=== PATIENT | female | born 1965 | race Caucasian/White ===

== ENCOUNTER 2016-04-27 10:52 | Emergency (ER) | payer OTHER, MEDICARE ==
[~2016-04-27] VITALS: Ht 170.2 cm; Wt 135.2 kg
[~2016-04-27 10:52] MED LIST: ALBUTEROL0.09 MG/A1 INH; AMBIEN 10MG10 MG PO; AMBIEN10 M1 PO; ASPIRIN EC81 M1 PO; ATIVAN1 M1 PO; BUPROPION HCL75 M1; BUPROPION HCL75 M1 PO; CLARITIN10 MG PO; CLONAZEPAM0.5 MG PO; CLONAZEPAM1 M2 PO; CLONAZEPAM1 MG PO; DESONIDE0.052 TOP; ECOTRIN81 MG PO; EPIPEN ADULT A0.3 MG IM; FAMOTIDINE20 M1 PO; FLONASE120 SPRAY/ NASB; FLUTICASON0.05 MG/A2 INH/SOL; FLUTICASONE PRO16 GM NAS; GABAPENTIN100 M2 PO; GEODON20 M1 PO; GEODON80 MG PO; GUAFENESIN400 MG PO; LAMICTAL 25MG25 MG PO; LAMOTRIGINE100 M2 PO; LAMOTRIGINE25 M3 PO; LEVOCETIRIZINE D5 MG PO; LEVOTHYROXINE0.1 M1 PO; LEVOXYL88 MCG PO; LEVSIN-SL0.125 MG SL; LITHIUM CARBON300 M4 PO; LITHIUM CARBON300 M5 PO; LITHIUM CARBON300 M6 PO; MIRALAX119 GM PO; MONTELUKAST SOD10 M1 PO; MUCINEX600 M1 PO; MUCUS ER600 MG PO; MULTIVITAMIN1 TAB PO; NASONEX0.05 MG/Ac NAS; OLANZAPINE15 M1 PO; OLANZAPINE20 M1 PO; ONE DAILY MULT1 EAC2 PO; PEPCID20 M1 PO; PHENTERMINE H37.5 MG PO; PRAVASTATIN SOD40 M2 PO; PRAVASTATIN SOD40 MG PO; PREDNICOT20 MG PO; PROBIOTIC1 EACH PO; RISPERIDONE1 MG PO; RISPERIDONE2 MG PO; RISPERIDONE3 M1 PO; ROBITUSSIN W/CO10 ML PO; SINGULAIR10 MG PO; SUDAFED PE10 MG PO; SULFAMETHOXAZO1 EAC1 PO; TESSALON PERLE100 MG PO; TOPIRAMATE25 MG PO; VENTOLIN H0.09 MG/Ac INH; VITAMIN B-121000 MC3 PO; WELLBUTRIN SR100 M2 PO; ZIPRASIDONE HCL20 M1 PO; ZIPRASIDONE HYD40 MG PO; ZIPRASIDONE HYD80 MG PO; ZITHROMAX Z-PA250 M1 PO; ZOFRAN ODT4 M1 SL; ZYPREXA2.5 M1 PO
[2016-04-27] MEDS ORDERED: BUPROPION HCL75 M1 PO (12:00)
[2016-04-27] MEDS ORDERED: B-12500 MC1 PO (12:01)
[2016-04-27] MEDS ORDERED: OLANZAPINE20 M1 PO (12:03)
[2016-04-27] MEDS ORDERED: GABAPENTIN300 M2 PO (12:03)
--- NOTE | 2016-04-27 12:21 | ED MVC/FALL/TRAUMA COMPLAINT ---
History of Present Illness General Chief Complaint: Fall Stated Complaint: FALL Source: patient Exam Limitations: no limitations Allergies Coded Allergies: lamotrigine (From Lamictal) (Severe, RASH 12/24/15) shrimp (Severe, ANAPHYLAXIS 12/24/15) Fish Containing Products (12/25/15) divalproex sodium (From DEPAKOTE) (vomiting 12/25/15) ketorolac (From TORADOL) (UNKNOWN 12/24/15) telithromycin (VOMITING AND DIARRHEA 12/24/15) tetracycline (RASH ON HEAD, SCALP GETS REALLY DRY 12/24/15) topiramate (From TOPAMAX) (12/25/15) haloperidol (CATATONIC/DISTONIC 12/30/15 12/30/15) levofloxacin (SEVERE DIARRHEA 12/24/15) oxycodone (VOMITING 12/24/15) Triage Note: STATES THAT SHE FELL WALKING UP STAIRS ON MONDAY AND HAS BILATERAL KNEE PAIN, TOOK ASPRIN WITH LITTLE RELIEF THIS AM Triage Nurses Notes Reviewed? yes HPI: this patient is a 50-year-old female who presented to the emergency department today for multiple complaints. She reported that on Monday she was going to [place], "psychiatric appointment," when she was walking up the stairs and fell forward landing on her knees and lower abdomen. The patient reported that the pain that she feels gets up to a 7 out of 10 and is nonradiating. The pain is sharp and worse with certain movements. No palliative factors. The patient reported that she did have a lap band surgery and was told by her doctor at [facility] that if she has any abdominal pain to go to the hospital. The patient reported some tingling in her right foot. No numbness. The patient is denying any calf pain or swelling. She denied any nausea, vomiting, chest pain, difficulty breathing, or any other associated symptoms. She did try taking aspirin this morning with no relief of her symptoms. (EULOGIO GUTIERRES,ERIKA) Vital Signs & Intake/Output Vital Signs & Intake/Output ED Intake and Output 04/28 0000 04/27 1200 Intake Total Output Total 50 Balance -50 Output, Urine 50 Patient 298 lb Weight Reconcile Medications Aspirin (Ecotrin*) 81 MG TABLET. 81 MG PO DAILY [facility] Bupropion HCl 75 MG TABLET 1 TAB PO DAILY DEPRESSION (Reported) Cyanocobalamin (Vitamin B-12) (B-12) 500 MCG TABLET 1 TAB PO DAILY SUPPLEMENT (Reported) Famotidine 20 MG TABLET 20 MG PO BID ACID REFLUX Fluticasone Propionate 50 MCG/ACTUATION SPRAY.SUSP 2 SPRAY FLORENCIO DAILY ALLERGIES Gabapentin 300 MG CAPSULE 1 CAP PO QPM ANXIETY (Reported) Levothyroxine Sodium (Levoxyl) 88 MCG TABLET 1 TAB PO DAILY AC THYROID ( Reported) [place] Carbonate 300 MG CAPSULE 600 MG PO 0800 MOOD STABILITY [place] Carbonate 300 MG CAPSULE 900 MG PO 2000 MOOD STABILITY Montelukast Sodium 10 MG TABLET 10 MG PO DAILY ASTHMA Multivitamin (One Daily Multivitamin) 1 EACH TABLET 1 TAB PO DAILY VITAMIN SUPPORT Naproxen (Naprosyn) 500 MG TABLET 1 TAB PO BID PRN pain and inflammation Olanzapine 20 MG TABLET 1 TAB PO QPM CLARIFY THOUGHTS (Reported) Pravastatin Sodium 40 MG TABLET 1 TAB PO DAILY DIRECTED (Reported) (HUMPHREY CABRERA DO) Past History Travel History Traveled to [place] past 21 day No Medical History Any Pertinent Medical History? see below for history Neurological: NONE EENT: allergies, rhinitis, sinusitis, LARYNGEAL CYSTS Cardiovascular: hyperlipidemia Respiratory: asthma, bronchitis, obstructive sleep apnea, allergies Gastrointestinal: GERD Hepatic: NONE Renal: NONE Musculoskeletal: NONE Psychiatric: anxiety, depression, insomnia, schizo affective disorder (depressed , with suicidality) Endocrine: hypothyroidism, obesity, diet controlled diabetes Blood Disorders: NONE Cancer(s): NONE STEEPING PRESS TENDER/Reproductive: NONE Other Medical Hx: low pneumonia titers History of MRSA: No History of VRE: No History of CDIFF: No Pneumonia Vaccine: 06/26/15 Influenza Vaccine: 12/25/15 Surgical History Surgical History: LAPBAND done in 2005 Lapband reversal done in 04/28 failure lap band take down reversal of lapband 2014 Psychosocial History Who do you live with Patient/Self Services at Home None What is your primary language Indonesian Tobacco Use: Never used ETOH Use: denies use Illicit Drug Use: denies illicit drug use Family History Family History, If Any: Parents (Hypertension). FATHER (Diabetes). Hx Contributory? No (EULOGIO GUTIERRES,ERIKA) Review of Systems Review of Systems Constitutional: Reports: no symptoms. Eyes: Reports: no symptoms. Ears, Nose, Throat, Mouth: Reports: no symptoms. Respiratory: Reports: no symptoms. Cardiovascular: Reports: no symptoms. Gastrointestinal/Abdominal: Reports: see HPI. Genitourinary: Reports: no symptoms. Musculoskeletal: Reports: see HPI. Skin: Reports: no symptoms. Neurological/Psychological: Reports: see HPI. All Other Systems: Reviewed and Negative (EULOGIO GUTIERRES,ERIKA) Physical Exam Physical Exam General Appearance: well developed/nourished, no apparent distress, alert, awake Comments: Well-developed well-nourished person in no acute distress HEENT: Normal EENT exam, head normocephalic/atraumatic no bony deformity/step- off of the skull, no tenderness to palpation over the scalp PERRLA bilaterally Nose is atraumatic. Neck: Supple, no lymphadenopathy. No midline tenderness. Full range of motion Back: Normal inspection Cardiovascular: Regular rate and rhythm with no murmurs, rubs, or gallops Respiratory: Chest nontender. No respiratory distress. Breath sounds clear to auscultation bilaterally with no wheezes, rales, rhonchi Abdomen: Soft, nontender and nondistended. Normoactive bowel sounds. No rebound or guarding. No peritoneal signs. No organomegaly appreciated Extremity: Full range of motion of bilateral knees with no bony or muscular deformities noted. No effusions or overlying erythema or ecchymosis to the knee joints bilaterally. Mild tenderness to palpation over the patella bilaterally. No edema, no calf tenderness to palpation, normal and equal pulses. Neuro: Alert oriented x3, motor sensory normal, cranial nerves II through XII grossly intact. Skin: No appreciable rash on exposed skin, skin is warm and dry. Psych: Mood and affect is flat Core Measures ACS in differential dx? Yes Severe Sepsis Present: No Septic Shock Present: No (EULOGIO GUTIERRES,ERIKA) Progress Differential Diagnosis: aoritic dissection, abd injury, C/T/L spine injury, ext injury, pelvis injury, spinal cord injury, perforated viscus Plan of Care: Orders Procedure Date/time Status Add-on Test (ER Only) 04/27 1334 Active EKG 04/27 1334 Active TROPONIN LEVEL 04/27 1221 Complete COMPREHENSIVE METABOLIC PANEL 04/27 1211 Complete CBC WITHOUT DIFFERENTIAL 04/27 1211 Complete URINE 04/27 1125 Complete Laboratory Tests 04/27/16 1221: Anion Gap 11, Estimated GFR > 60, BUN/Creatinine Ratio 17.5, Glucose 149 H, Calcium 9.9, Total Bilirubin 0.5, AST 28, ALT 53 H, Alkaline Phosphatase 85, Troponin I < 0.01, Total Protein 7.0, Albumin 4.2, Globulin 2.8, Albumin/ Globulin Ratio 1.5, CBC w Diff NO MAN DIFF REQ, RBC 4.68, MCV 89.5, MCH 30.5, RDW 14.1, MPV 9.2, Gran % 78.5 H, Lymphocytes % 15.3 L, Monocytes % 5.9, Eosinophils % 0.1, Basophils % 0.2, Absolute Granulocytes 8.8 H, Absolute Lymphocytes 1.7, Absolute Monocytes 0.7 H, Absolute Eosinophils 0, Absolute Basophils 0, PUBS MCHC 34.1 04/27/16 1128: Urine Test NEGATIVE Diagnostic Imaging: Viewed by Me: Radiology Read, CT Scan. Discussed w/RAD: Radiology Read, CT Scan. Radiology Impression: PATIENT: MARYLIN KEITH PRESENT AGE: 50 PATIENT ACCOUNT NO: [id number] : 67 LOCATION: [facility] ORDERING PHYSICIAN: ERIKA KRISHNAN PA-C SERVICE DATE: 04/27/16 EXAM TYPE: RAD - XRY-KNEE COMPLETE LEFT; XRY-KNEE COMPLETE RIGHT EXAMINATION: BILATERAL KNEES. CLINICAL INFORMATION: Status post fall with bilateral knee pain. COMPARISON: None. TECHNIQUE: AP, lateral and oblique views of both knees were obtained. FINDINGS: RIGHT KNEE: No fracture, malalignment or other acute abnormality is seen. There is mild tricompartmental degenerative disease with marginal osteophytosis. Joint spaces are reasonably well-maintained. LEFT KNEE: There is mild tricompartmental degenerative disease slightly more marked than seen on the right side. No fracture, malalignment or other acute abnormality is seen. A small well-corticated bone fragment overlies the anterior joint space on the lateral view and could represent small intra-articular loose body. IMPRESSION: 1. No acute abnormality. 2. Bilateral mild tricompartmental degenerative disease slightly more marked on the left. 2. Question intra- articular loose body left knee. DICTATED BY: ROSARIO BAKER MD DATE/TIME DICTATED:04/27/161309 COLLEGE OR UNIVERSITY BUSINESS MANAGER:MINNIE DATE/TIME TRANSCRIBED:1309 CONFIDENTIAL, DO NOT COPY WITHOUT APPROPRIATE AUTHORIZATION. < Electronically signed in Other Vendor System> SIGNED BY: ROSARIO BAKER MD 04/27/16 1318, PATIENT: MARYLIN KEITH PRESENT AGE: 50 PATIENT ACCOUNT NO: [id number] : 69 LOCATION: [facility] ORDERING PHYSICIAN: ERIKA KRISHNAN PA-C SERVICE DATE: 04/27/16-1211 EXAM TYPE: CAT - CT ABD & PELVIS W ORAL & IV CO EXAMINATION: CT ABDOMEN AND PELVIS WITH CONTRAST CLINICAL INFORMATION: Prior lap band. Abdominal pain. COMPARISON: None. TECHNIQUE: Multidetector volumetric imaging was performed of the abdomen and pelvis after the IV administration of 95 mL of Optiray 320 intravenous contrast and after the oral administration of 5 mL Gastrografin mixed in 100 mL water per bariatric protocol. Sagittal and coronal reformatted images were obtained on the technologist's workstation. DLP: 1610 mGy-cm. FINDINGS: LUNG BASES: There is mosaic attenuation at the lung bases. The imaged heart is unremarkable. There is a trace amount of pericardial fluid. LIVER, GALLBLADDER, AND BILIARY TREE: The liver is low in attenuation with heterogeneous sparing peripherally and in the region of the gallbladder fossa. No intrahepatic ductal dilatation. The gallbladder is unremarkable with no evidence of radiopaque gallstones, gallbladder wall thickening, or obvious pericholecystic inflammatory changes. PANCREAS: Unremarkable. SPLEEN: Unremarkable. ADRENAL GLANDS: Unremarkable. KIDNEYS AND URETERS: The kidneys are normal in size, shape, and attenuation. No hydronephrosis, hydroureter, or calculi seen. No perinephric stranding. BLADDER: Under distended. GASTROINTESTINAL TRACT: Scattered colonic diverticula without evidence of diverticulitis. Moderate stool throughout the colon. A normal appendix is visualized. Small bowel loops are normal in caliber. Scattered air within small bowel loops is suggestive of an incompetent ileocecal valve. ABDOMINAL WALL: No significant hernia is appreciated. LYMPH NODES: Normal. VASCULAR: Unremarkable. The aorta is normal in caliber. The portal vein is normally opacified. PELVIC VISCERA: Unremarkable. OSSEOUS STRUCTURES: No acute osseous abnormalities. There are 5 nonrib-bearing lumbar type vertebral bodies. No evidence of spondylolyses. Minor degenerative changes of the spine. IMPRESSION: No acute intra-abdominal or intrapelvic pathology. Heterogeneous hepatic steatosis without focal hepatic lesion or ductal dilatation. Colonic diverticula without diverticulitis. DICTATED BY: KIERAN CHAPARRO MD DATE/TIME DICTATED:04/27/161344 COLLEGE OR UNIVERSITY BUSINESS MANAGER:MINNIE DATE/TIME TRANSCRIBED:1344 CONFIDENTIAL, DO NOT COPY WITHOUT APPROPRIATE AUTHORIZATION. < Electronically signed in Other Vendor System> SIGNED BY: KIERAN CHAPARRO MD 04/27/16 1356 Initial ED EKG: normal axis, normal intervals, normal sinus rhythm, no ST T wave changes, 88 bpm (EULOGIO GUTIERRES,ERIKA) Departure Departure Disposition: HOME OR SELF CARE Condition: Stable Clinical Impression Primary Impression: Fall Qualifiers: Encounter type: initial encounter Qualified Code: W19.XXXA - Unspecified fall, initial encounter Referrals: PIZANO DARRYN HOFFMAN (PCP/Family) Additional Instructions: Take naproxen as prescribed for pain and inflammation. Please follow-up with your primary care physician. Gentle stretching. Avoid any strenuous activity or heavy lifting over the next several days. Return to the emergency department for any worsening symptoms or concerns. Departure Forms: Customer Survey General Discharge Information Prescriptions: Current Visit Scripts Naproxen (Naprosyn) 1 TAB PO BID PRN pain and inflammation #14 TAB (ERIKA KRISHNAN PA-C) PA/CERTIFIED MAINTENANCE WELDER Co-Sign Statement Statement: ED Attending supervision documentation- [] I saw and evaluated the patient. I have also reviewed all the pertinent lab results and diagnostic results. I agree with the findings and the plan of care as documented in the PA's/CERTIFIED MAINTENANCE WELDER's documentation. [X] I have reviewed the ED Record and agree with the PA's/CERTIFIED MAINTENANCE WELDER's documentation. [] Additions or exceptions (if any) to the PAs/CERTIFIED MAINTENANCE WELDER's note and plan are summarized below: [] (HUMPHREY CABRERA DO
[2016-04-27 12:33] LABS: ABSOLUTE BASOPHIL COUNT 0 /CUMM (0.0-0.2); ABSOLUTE EOSINOPHIL COUNT 0 /CUMM (0.0-0.7); ABSOLUTE GRANULOCYTE CT 8.8 /CUMM (1.4-6.5); ABSOLUTE LYMPH COUNT 1.7 /CUMM (1.2-3.4); ABSOLUTE MONOCYTE COUNT 0.7 /CUMM (0.10-0.60); BASOPHIL % 0.2 % (0.0-2.0); EOSINOPHIL % 0.1 % (0-5); GRANULOCYTE % 78.5 % (42.2-75.2); HEMATOCRIT 41.9 % (37-47); MEAN CORPUSCULAR HGB 30.5 PG (27.0-31.0); MEAN CORPUSCULAR HGB CONC 34.1 G/DL (33.0-37.0); MEAN CORPUSCULAR VOLUME 89.5 FL (81.0-99.0); MEAN PLATELET VOLUME 9.2 FL (7.4-10.4); PLATELET COUNT 256 /CUMM (130-400); RBC DISTRIBUTION WIDTH 14.1 % (11.5-14.5); RED BLOOD CELL CT 4.68 /CUMM (4.20-5.40); WHITE BLOOD CELL COUNT 11.3 /CUMM (4.8-10.8)
--- NOTE | 2016-04-27 13:18 | RADIOLOGY REPORT ---
EXAMINATION: BILATERAL KNEES. CLINICAL INFORMATION: Status post fall with bilateral knee pain. COMPARISON: None. TECHNIQUE: AP, lateral and oblique views of both knees were obtained. FINDINGS: RIGHT KNEE: No fracture, malalignment or other acute abnormality is seen. There is mild tricompartmental degenerative disease with marginal osteophytosis. Joint spaces are reasonably well-maintained. LEFT KNEE: There is mild tricompartmental degenerative disease slightly more marked than seen on the right side. No fracture, malalignment or other acute abnormality is seen. A small well-corticated bone fragment overlies the anterior joint space on the lateral view and could represent small intra-articular loose body. IMPRESSION: 1. No acute abnormality. 2. Bilateral mild tricompartmental degenerative disease slightly more marked on the left. 2. Question intra-articular loose body left knee.
[2016-04-27 13:37] VITALS: BP 131/76
--- NOTE | 2016-04-27 13:56 | CT SCAN REPORT ---
EXAMINATION: CT ABDOMEN AND PELVIS WITH CONTRAST CLINICAL INFORMATION: Prior lap band. Abdominal pain. COMPARISON: None. TECHNIQUE: Multidetector volumetric imaging was performed of the abdomen and pelvis after the IV administration of 95 mL of Optiray 320 intravenous contrast and after the oral administration of 5 mL Gastrografin mixed in 100 mL water per bariatric protocol. Sagittal and coronal reformatted images were obtained on the technologist's workstation. DLP: 1610 mGy-cm. FINDINGS: LUNG BASES: There is mosaic attenuation at the lung bases. The imaged heart is unremarkable. There is a trace amount of pericardial fluid. LIVER, GALLBLADDER, AND BILIARY TREE: The liver is low in attenuation with heterogeneous sparing peripherally and in the region of the gallbladder fossa. No intrahepatic ductal dilatation. The gallbladder is unremarkable with no evidence of radiopaque gallstones, gallbladder wall thickening, or obvious pericholecystic inflammatory changes. PANCREAS: Unremarkable. SPLEEN: Unremarkable. ADRENAL GLANDS: Unremarkable. KIDNEYS AND URETERS: The kidneys are normal in size, shape, and attenuation. No hydronephrosis, hydroureter, or calculi seen. No perinephric stranding. BLADDER: Under distended. GASTROINTESTINAL TRACT: Scattered colonic diverticula without evidence of diverticulitis. Moderate stool throughout the colon. A normal appendix is visualized. Small bowel loops are normal in caliber. Scattered air within small bowel loops is suggestive of an incompetent ileocecal valve. ABDOMINAL WALL: No significant hernia is appreciated. LYMPH NODES: Normal. VASCULAR: Unremarkable. The aorta is normal in caliber. The portal vein is normally opacified. PELVIC VISCERA: Unremarkable. OSSEOUS STRUCTURES: No acute osseous abnormalities. There are 5 nonrib-bearing lumbar type vertebral bodies. No evidence of spondylolyses. Minor degenerative changes of the spine. IMPRESSION: No acute intra-abdominal or intrapelvic pathology. Heterogeneous hepatic steatosis without focal hepatic lesion or ductal dilatation. Colonic diverticula without diverticulitis.
[2016-04-27] MEDS ORDERED: NAPROSYN500 M1 PO (14:03)
== END 2016-04-27 14:14 ==
LOC: ERH 10:52
PROVIDERS: Physician Assistant
DX: M25.561 Pain in right knee (principal); M25.562 Pain in left knee; R10.30 Lower abdominal pain, unspecified; R20.2 Paresthesia of skin; W19.XXXA Unspecified fall, initial encounter
CPT/HCPCS: 73562-LT; 73562-RT; 74177; 81025; 93005; 93010; Q9965

== ENCOUNTER 2016-09-09 11:52 | Emergency (ER) | payer OTHER, MEDICARE ==
[~2016-09-09 11:52] MED LIST changes: +B-12500 MC1 PO; +GABAPENTIN300 M2 PO; +NAPROSYN500 M1 PO
--- NOTE | 2016-09-09 15:58 | ED MVC/FALL/TRAUMA COMPLAINT ---
History of Present Illness General Chief Complaint: Hand or Wrist Injury Stated Complaint: BIBA FINGER PAIN Source: patient Exam Limitations: no limitations Vital Signs & Intake/Output Vital Signs & Intake/Output Vital Signs Date Time Temp Pulse Resp B/P B/P Pulse O2 O2 Flow FiO2 Mean Ox Delivery Rate 09/09 1641 97.1 75 19 121/63 97 Room Air 09/09 1159 97.7 100 20 150/80 100 Nasal 2.0L Cannula Allergies Coded Allergies: lamotrigine (From Lamictal) (Severe, RASH 12/24/15) shrimp (Severe, ANAPHYLAXIS 12/24/15) Fish Containing Products (12/25/15) divalproex sodium (From DEPAKOTE) (vomiting 12/25/15) ketorolac (From TORADOL) (UNKNOWN 12/24/15) telithromycin (VOMITING AND DIARRHEA 12/24/15) tetracycline (RASH ON HEAD, SCALP GETS REALLY DRY 12/24/15) topiramate (From TOPAMAX) (12/25/15) haloperidol (CATATONIC/DISTONIC 12/30/15 12/30/15) levofloxacin (SEVERE DIARRHEA 12/24/15) oxycodone (VOMITING 12/24/15) Reconcile Medications Aspirin (Ecotrin*) 81 MG TABLET.DR 81 MG PO DAILY HEART HEALTH Bupropion HCl 75 MG TABLET 1 TAB PO DAILY DEPRESSION (Reported) Cyanocobalamin (Vitamin B-12) (B-12) 500 MCG TABLET 1 TAB PO DAILY SUPPLEMENT (Reported) Famotidine 20 MG TABLET 20 MG PO BID ACID REFLUX Fluticasone Propionate 50 MCG/ACTUATION SPRAY.SUSP 2 SPRAY FLORENCIO DAILY ALLERGIES Gabapentin 300 MG CAPSULE 1 CAP PO QPM ANXIETY (Reported) Levothyroxine Sodium (Levoxyl) 88 MCG TABLET 1 TAB PO DAILY AC THYROID ( Reported) Joseph Carbonate 300 MG CAPSULE 600 MG PO 0800 MOOD STABILITY Joseph Carbonate 300 MG CAPSULE 900 MG PO 2000 MOOD STABILITY Montelukast Sodium 10 MG TABLET 10 MG PO DAILY ASTHMA Multivitamin (One Daily Multivitamin) 1 EACH TABLET 1 TAB PO DAILY VITAMIN SUPPORT Naproxen (Naprosyn) 500 MG TABLET 1 TAB PO BID PRN pain and inflammation Olanzapine 20 MG TABLET 1 TAB PO QPM CLARIFY THOUGHTS (Reported) Pravastatin Sodium 40 MG TABLET 1 TAB PO DAILY DIRECTED (Reported) Triage Note: PT BIBA AFTER TRIPPING WALKING UP STEPS AND INJURING LEFT KNEE, LEFT UPPER LEG AND LEFT MIDDLE FINGER. DENIES HEADSTRIKE Triage Nurses Notes Reviewed? yes Onset: Abrupt Duration: hour(s): Timing: single episode today Severity: moderate Injuries/Fall Location: upper extremity, lower extremity Method of Injury: fall Loss of Consciousness: no loss of consciousness No Modifying Factors: none HPI: 51-year-old female brought in by ambulance following a fall. Patient states that while climbing steps she tripped and fell saying that her purse with her down. She fell forward onto her hand left thigh and knee, and right mae. She denies hitting her head or loss of consciousness. She notes cuts to her left 3rd finger and her legs. She states that today she did not eat breakfast or lunch, all she had was a soda. She was feeling dizzy today intermittently, she did feel slightly dizzy and lightheaded before her fall. She does not check her blood sugar daily. She complains of nausea without vomiting. She denies syncope, chest pain, dyspnea, abdominal pain. (DOUG BERMUDEZ) Past History Travel History Traveled to [place] past 21 day No Medical History Any Pertinent Medical History? see below for history Neurological: NONE EENT: allergies, rhinitis, sinusitis, LARYNGEAL CYSTS Cardiovascular: hyperlipidemia Respiratory: asthma, bronchitis, obstructive sleep apnea, allergies Gastrointestinal: GERD Hepatic: NONE Renal: NONE Musculoskeletal: NONE Psychiatric: anxiety, depression, insomnia, schizo affective disorder (depressed , with suicidality) Endocrine: hypothyroidism, obesity, diet controlled diabetes Blood Disorders: NONE Cancer(s): NONE FILENET ADMIN/Reproductive: NONE Other Medical Hx: low pneumonia titers History of MRSA: No History of VRE: No History of CDIFF: No Surgical History Surgical History: LAPBAND done in 2005 Lapband reversal done in 04/28 failure lap band take down reversal of lapband 2014 Psychosocial History Who do you live with Patient/Self Services at Home None What is your primary language Polish Tobacco Use: Never used ETOH Use: denies use Illicit Drug Use: denies illicit drug use Family History Family History, If Any: Parents (Hypertension). FATHER (Diabetes). Hx Contributory? No (DOUG BERMUDEZ) Review of Systems Review of Systems Constitutional: Reports: see HPI. Eyes: Reports: no symptoms. Ears, Nose, Throat, Mouth: Reports: no symptoms. Respiratory: Reports: no symptoms. Cardiovascular: Reports: see HPI. Gastrointestinal/Abdominal: Reports: no symptoms. Genitourinary: Reports: no symptoms. Musculoskeletal: Reports: see HPI. Skin: Reports: see HPI. Neurological/Psychological: Reports: see HPI. All Other Systems: Reviewed and Negative (DOUG BERMUDEZ) Physical Exam Physical Exam General Appearance: well developed/nourished, no apparent distress, alert, awake Head: atraumatic, normal appearance Eyes: Bilateral: normal appearance, PERRL, EOMI, normal inspection. 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 No Severe Sepsis Present: No Septic Shock Present: No (DOUG BERMUDEZ) Progress Differential Diagnosis: abd injury, C/T/L spine injury, ext injury, spinal cord injury, ACS, hypoglycemia, presyncope Plan of Care: Orders Procedure Date/time Status Heart Healthy Diet 09/10 B Active TROPONIN LEVEL 09/09 1642 Complete COMPREHENSIVE METABOLIC PANEL 09/09 1642 Complete CBC WITHOUT DIFFERENTIAL 09/09 1642 Complete EKG 09/09 1642 Active Laboratory Tests 09/09/16 1715: Anion Gap 10, Estimated GFR > 60, BUN/Creatinine Ratio 12.5, Glucose 125 H, Calcium 9.3, Total Bilirubin 0.5, AST 32, ALT 52, Alkaline Phosphatase 76, Troponin I < 0.01, Total Protein 6.5, Albumin 3.7, Globulin 2.8, Albumin/ Globulin Ratio 1.3, CBC w Diff NO MAN DIFF REQ, RBC 4.37, MCV 91.1, MCH 30.0, RDW 13.7, MPV 9.2, Gran % 78.2 H, Lymphocytes % 14.8 L, Monocytes % 6.1, Eosinophils % 0.8, Basophils % 0.1, Absolute Granulocytes 10.1 H, Absolute Lymphocytes 1.9, Absolute Monocytes 0.8 H, Absolute Eosinophils 0.1, Absolute Basophils 0, PUBS MCHC 33.0 Patient is sittineg comfortably in stretcher, she is in no acute distress, she drank juice and is requesting a food tray. Her fall is mechanical in nature as she "tripped" up the stairs however she was complaining of intermittent dizziness today. She was worked up with an EKG and troponin for ACS however both are WNL, suspicion for cardiac event is low at this time. Tibia xray showed no acute fracutre, patient was able to ambulate prior to her arrival here. The results of her labs and xray were discussed with the patient. Suspicion for spinal injury is low at this time given no midline tenderness, no radicular pain , no numbness, no paresthesias. Her abrasion to left third finger was dressed with bacitracin and a band-aid. She was instructed she may take tylenol as needed for her pain and she will return with any new or worsening symptoms. Patient has not had any complaints of chest pain or shortness of breath. She had no chest pain or shortness of breath prior to the fall. (NIURKA JENSEN,DOUG) Diagnostic Imaging: Viewed by Me: Radiology Read. Discussed w/RAD: Radiology Read. Radiology Impression: PATIENT: MARYLIN KEITH PRESENT AGE: 51 PATIENT ACCOUNT NO: [id number] : [id number] LOCATION: [facility] ORDERING PHYSICIAN: DOUG JENSEN SERVICE DATE: 09/09/16 EXAM TYPE : RAD - [id number], LEFT EXAMINATION: XR TIBIA AND FIBULA, LEFT CLINICAL INFORMATION: Left tibial pain. Fall. COMPARISON: 04/27/2016 knee radiographs. TECHNIQUE: AP and lateral views of the left tibia and fibula were obtained. FINDINGS: There is no fracture or cortical disruption. Anatomic alignment at the knee and ankle. Mild tricompartmental degenerative changes of the knee with osteophyte formation. No significant joint effusion. No gross soft tissue abnormality. IMPRESSION: No acute fracture or malalignment. 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 <Electronically signed in Other Vendor System> SIGNED BY: MARTIN DIAZ MD 09/09/16 1630 Initial ED EKG: sinus rhythm at 71bpm, borderline t wave abnormality Prior EKG: unchanged (DOUG BERMUDEZ) Departure Departure Disposition: HOME OR SELF CARE Condition: Stable Clinical Impression Primary Impression: Fall (on) (from) other stairs and steps, initial encounter Secondary Impressions: Abrasion of finger of left hand, Contusion of left lower leg, Dizziness Referrals: JERICA HOFFMAN,DARRYN Ramos (PCP/Family) Additional Instructions: Take Tylenol as prescribed as needed for pain. Rest, apply ice. Follow up with your primary care doctor in 1 week. Return with any new or worsening symptoms. Please go over all results of today's visit with your primary care doctor. Contact your primary care doctor to let them know you were here in the emergency room. There may be nonspecific findings which may not be related to your visit today here in the emergency room but may require further evaluation and chronic monitoring by your primary care doctor. If you had a laceration today the chance of foreign body always remains. You should follow-up with your primary care doctor for recheck in 3-5 days for a wound check. If you had an x-ray done there is a chance that a fracture could have been missed on initial read and you should follow-up with your primary care doctor for repeat x-rays if symptoms persist. If your blood pressure was elevated here in the emergency room please have rechecked by her primary care doctor within the next 48 hours by your primary care doctor. If you were prescribed a narcotic here in the emergency room or any type of controlled substances you're not allowed to drive while taking this medication or operate any type of heavy machinery. Narcotics can make you feel lightheaded dizziness nausea and can cause constipation. You may need to moss picker a stool softener. Thank you for choosing [facility] emergency room. Please return to the emergency room immediately if you have any other concerns worsening of symptoms. Departure Forms: Customer Survey General Discharge Information Comments No written by joel vega PA-C with my supervision (DOUG BERMUDEZ) PA/NEGATIVE CLEANER Co-Sign Statement Statement: ED Attending supervision documentation- [] I saw and evaluated the patient. I have also reviewed all the pertinent lab results and diagnostic results. I agree with the findings and the plan of care as documented in the PA's/NEGATIVE CLEANER's documentation. [x] I have reviewed the ED Record and agree with the PA's/NEGATIVE CLEANER's documentation. [] Additions or exceptions (if any) to the PAs/NEGATIVE CLEANER's note and plan are summarized below: [] (HUMPHREY CABRERA DO)
--- NOTE | 2016-09-09 16:30 | RADIOLOGY REPORT ---
EXAMINATION: XR TIBIA AND FIBULA, LEFT CLINICAL INFORMATION: Left tibial pain. Fall. COMPARISON: 04/27/2016 knee radiographs. TECHNIQUE: AP and lateral views of the left tibia and fibula were obtained. FINDINGS: There is no fracture or cortical disruption. Anatomic alignment at the knee and ankle. Mild tricompartmental degenerative changes of the knee with osteophyte formation. No significant joint effusion. No gross soft tissue abnormality. IMPRESSION: No acute fracture or malalignment.
[2016-09-09 16:41] VITALS: BP 121/63
[2016-09-09 17:21] LABS: ABSOLUTE BASOPHIL COUNT 0 /CUMM (0.0-0.2); ABSOLUTE EOSINOPHIL COUNT 0.1 /CUMM (0.0-0.7); ABSOLUTE GRANULOCYTE CT 10.1 /CUMM (1.4-6.5); ABSOLUTE LYMPH COUNT 1.9 /CUMM (1.2-3.4); ABSOLUTE MONOCYTE COUNT 0.8 /CUMM (0.10-0.60); BASOPHIL % 0.1 % (0.0-2.0); EOSINOPHIL % 0.8 % (0-5); GRANULOCYTE % 78.2 % (42.2-75.2); HEMATOCRIT 39.8 % (37-47); MEAN CORPUSCULAR VOLUME 91.1 FL (81.0-99.0); MEAN PLATELET VOLUME 9.2 FL (7.4-10.4); PLATELET COUNT 240 /CUMM (130-400); RBC DISTRIBUTION WIDTH 13.7 % (11.5-14.5); RED BLOOD CELL CT 4.37 /CUMM (4.20-5.40); WHITE BLOOD CELL COUNT 12.9 /CUMM (4.8-10.8)
== END 2016-09-09 18:39 ==
LOC: ERH 11:52
PROVIDERS: Physician Assistant Medical
DX: S80.12XA Contusion of left lower leg, initial encounter (principal); S60.413A Abrasion of left middle finger, initial encounter; W18.09XA Striking against other object with subsequent fall, initial encounter; Y92.9 Unspecified place or not applicable; Y93.9 Activity, unspecified
CPT/HCPCS: 73590-LT; 90471; 90714; 93005; 93010

== ENCOUNTER 2016-10-23 16:52 | Emergency (ER) | payer OTHER, MEDICARE ==
[~2016-10-23] VITALS: Ht 167.6 cm; Wt 133.4 kg
--- NOTE | 2016-10-23 16:55 | ED PSYCHIATRIC COMPLAINT ---
History of Present Illness General Chief Complaint: Altered Mental Status Stated Complaint: ALTERED MENTAL STATUS/HALLUCINATION Source: patient, old records Exam Limitations: no limitations Vital Signs & Intake/Output Vital Signs & Intake/Output Vital Signs Date Time Temp Pulse Resp B/P B/P Pulse O2 O2 Flow FiO2 Mean Ox Delivery Rate 10/24 2119 98.2 72 18 151/59 95 Room Air 10/23 1752 Room Air 10/23 1700 97.4 93 16 130/73 96 Room Air Allergies Coded Allergies: lamotrigine (From Lamictal) (Severe, RASH 12/24/15) shrimp (Severe, ANAPHYLAXIS 12/24/15) Fish Containing Products (UNKNOWN 10/23/16) divalproex sodium (From DEPAKOTE) (vomiting 12/25/15) telithromycin (VOMITING AND DIARRHEA 12/24/15) tetracycline (RASH ON HEAD, SCALP GETS REALLY DRY 12/24/15) topiramate (From TOPAMAX) (UNKNOWN 10/23/16) haloperidol (CATATONIC/DISTONIC 12/30/15 12/30/15) levofloxacin (SEVERE DIARRHEA 12/24/15) oxycodone (VOMITING 12/24/15) Reconcile Medications Benztropine Mesylate 1 MG TABLET 1 TAB PO BID MENTAL HEALTH (Reported) Bupropion HCl (Bupropion XL) 300 MG TAB.ER.24H 1 TAB PO DAILY MENTAL HEALTH ( Reported) Epinephrine (Epipen 2-Lraon) 0.3 MG/0.3 ML AUTO.INJCT 0.3 MG IM AD PRN ALLERGIC REACTION (Reported) Famotidine 20 MG TABLET 20 MG PO BID ACID REFLUX Fluticasone Propionate 50 MCG/ACTUATION SPRAY.SUSP 2 SPRAY FLORENCIO DAILY ALLERGIES Gabapentin 300 MG CAPSULE 1 CAP PO QPM ANXIETY (Reported) Levothyroxine Sodium 100 MCG TABLET 1 TAB PO DAILY THYROID (Reported) [place] Carbonate 300 MG CAPSULE 600 MG PO 0800 MOOD STABILITY [place] Carbonate 300 MG CAPSULE 900 MG PO 2000 MOOD STABILITY Metformin HCl 500 MG TABLET 1 TAB PO BID DM (Reported) Montelukast Sodium 10 MG TABLET 10 MG PO DAILY ASTHMA Multivitamin (One Daily Multivitamin) 1 EACH TABLET 1 TAB PO DAILY VITAMIN SUPPORT Naproxen (Naprosyn) 500 MG TABLET 1 TAB PO BID PRN pain and inflammation Olanzapine 15 MG TABLET 1 TAB PO QHS MENTAL HEALTH (Reported) Pravastatin Sodium 40 MG TABLET 1 TAB PO DAILY CHOLESTEROL (Reported) Triage Nurses Notes Reviewed? yes Onset: Gradual Duration: day(s): (FEW) Timing: recent history Severity: moderate Associated Symptoms: HALLUCINATIONS HPI: This is a 51 year old female with history of bipolar disorder, recently restarted on lithium who presents to the ER feeling very dehydrated and "dry", low energy. She states she titrated her lithium down. She denies hearing voices but states there are people in her house. She reports seeing things flying around the room. No SI/HI. Denies any substance abuse. (ALKA HADDAD MD) Past History Medical History Any Pertinent Medical History? see below for history Neurological: NONE EENT: allergies, rhinitis, sinusitis, LARYNGEAL CYSTS Cardiovascular: hyperlipidemia Respiratory: asthma, bronchitis, obstructive sleep apnea, allergies Gastrointestinal: GERD Hepatic: NONE Renal: NONE Musculoskeletal: NONE Psychiatric: anxiety, depression, insomnia, schizo affective disorder (depressed , with suicidality) Endocrine: hypothyroidism, obesity, diet controlled diabetes Blood Disorders: NONE Cancer(s): NONE EMT DISPATCHER/Reproductive: NONE Other Medical Hx: low pneumonia titers History of MRSA: No History of VRE: No History of CDIFF: No Tetanus Vaccine: 09/09/16 Surgical History Surgical History: LAPBAND done in 2005 Lapband reversal done in 04/28 failure lap band take down reversal of lapband 2014 Psychosocial History Who do you live with Patient/Self Services at Home None What is your primary language Togolese Family History Family History, If Any: Parents (Hypertension). FATHER (Diabetes). Hx Contributory? No (ALKA HADDAD MD) Review of Systems Review of Systems Constitutional: Reports: malaise. Denies: chills. EENTM: Reports: no symptoms. Respiratory: Reports: no symptoms. Cardiovascular: Denies: chest pain. GI: Denies: abdominal pain. Genitourinary: Reports: no symptoms. Musculoskeletal: Reports: no symptoms. Skin: Reports: no symptoms. Neurological/Psychological: Reports: confusion, depressed. Hematologic/Endocrine: Denies: bruising, bleeding. Immunologic/Allergic: Reports: no symptoms. All Other Systems: Reviewed and Negative (ALKA HADDAD MD) Physical Exam Physical Exam General Appearance: well developed/nourished, alert, awake, mild distress, obese Head: atraumatic Eyes: Bilateral: PERRL, EOMI. Ears, Nose, Throat: normal pharynx, normal ENT inspection, hearing grossly normal Neck: normal inspection, supple Respiratory: normal breath sounds Cardiovascular: regular rate/rhythm Gastrointestinal: soft, non-tender Extremities: normal range of motion Neurological/Psychiatric: no motor/sensory deficits, awake, alert, calm Appearance/Memory/Insight: impaired insight, neat Behavoir/Eye Contact/Speech: cooperative, decreased rate of speech, good eye contact Thoughts/Hallucinations: visual hallucinations Skin: intact, normal color, warm/dry SAD PERSONS Done? patient not suicidal (CATIE HOFFMAN,ALKA) Progress Differential Diagnosis: bipolar, lithium toxicity, psychosis, DELERIUM Hand-Off Endorsed To: KANU HOFFMAN,MACIEJ Liriano Endorsed Time: 1915 Pending: consult (CRISIS) (CATIE HOFFMAN,ALKA) Plan of Care: Orders Procedure Date/time Status Add-on Test (ER Only) 10/24 1915 Active ED CRISIS PSYCH CONSULT 10/23 1913 Active THYROID STIMULATING HORMONE 10/23 175 Complete FREE T4 10/23 1752 Complete URINE DRUGS OF ABUSE 10/23 1732 Complete URINALYSIS 10/23 1732 Active LITHIUM 10/23 1732 Complete ETHANOL 10/23 1732 Complete COMPREHENSIVE METABOLIC PANEL 10/23 1732 Complete CBC WITHOUT DIFFERENTIAL 10/23 1732 Complete Laboratory Tests 10/23/161999: Urine Opiates Screen < 100.00, Methadone Screen < 40, Barbiturate Screen < 60, Ur Phencyclidine Scrn < 6.00, Amphetamines Screen 190, U Benzodiazepines Scrn < 85, Urine Cocaine Screen < 50, Urine Cannabis Screen < 5.00 10/23/161754: TSH 1.640, Free T4 0.85 10/23/16 175: Anion Gap 12, Estimated GFR 59 L, BUN/Creatinine Ratio 8.0, Glucose 134 H, Calcium 10.2, Total Bilirubin 0.3, AST 32, ALT 51, Alkaline Phosphatase 85, Total Protein 7.0, Albumin 4.1, Globulin 2.9, Albumin/Globulin Ratio 1.4, CBC w Diff NO MAN DIFF REQ, RBC 4.60, MCV 90.8, MCH 29.5, RDW 13.5, MPV 9.6, Gran % 79.6 H, Lymphocytes % 12.1 L, Monocytes % 7.3, Eosinophils % 0.5, Basophils % 0.5, Absolute Granulocytes 8.0 H, Absolute Lymphocytes 1.2, Absolute Monocytes 0.7 H, Absolute Eosinophils 0.1, Absolute Basophils 0, PUBS MCHC 32.5 L, [place] 0.8, Serum Alcohol < 10.0 Comments: Patient has been seen and evaluated by department store door greeter. Patient has an appointment with [facility] tomorrow morning. Patient is stable for discharge at this time. (KANU HOFFMAN,MACIEJ Liriano) Departure Departure Condition: Stable Referrals: DARRYN PIZANO MD (PCP/Family) Departure Forms: Customer Survey General Discharge Information (CATIE HOFFMAN,ALKA) Departure Disposition: HOME OR SELF CARE Clinical Impression Primary Impression: Bipolar 1 disorder Additional Instructions: FOLLOW UP WITH CARE TOMORROW RETURN FOR ANY CONCERNS CALL 211 OR RETURN TO THE ER IF YOU HAVE ANY THOUGHTS OF HARMING YOURSELF OR ANYONE ELSE. (KANU HOFFMAN,MACIEJ Liriano)
[2016-10-23] MEDS ORDERED: BENZTROPINE MESY1 M1 PO (17:49)
[2016-10-23] MEDS ORDERED: BUPROPION XL300 M1 PO (17:49)
[2016-10-23] MEDS ORDERED: OLANZAPINE15 M1 PO (17:50)
[2016-10-23] MEDS ORDERED: METFORMIN HCL500 M3 PO (17:50)
[2016-10-23] MEDS ORDERED: LEVOTHYROXINE100 MC1 PO (17:50)
[2016-10-23] MEDS ORDERED: EPIPEN 2-P0.3 MG/0.3 IM (17:52)
[2016-10-23 18:07] LABS: ABSOLUTE BASOPHIL COUNT 0 /CUMM (0.0-0.2); ABSOLUTE EOSINOPHIL COUNT 0.1 /CUMM (0.0-0.7); ABSOLUTE LYMPH COUNT 1.2 /CUMM (1.2-3.4); ABSOLUTE MONOCYTE COUNT 0.7 /CUMM (0.10-0.60); BASOPHIL % 0.5 % (0.0-2.0); EOSINOPHIL % 0.5 % (0-5); GRANULOCYTE % 79.6 % (42.2-75.2); HEMATOCRIT 41.8 % (37-47); MEAN CORPUSCULAR HGB 29.5 PG (27.0-31.0); MEAN CORPUSCULAR HGB CONC 32.5 G/DL (33.0-37.0); MEAN CORPUSCULAR VOLUME 90.8 FL (81.0-99.0); MEAN PLATELET VOLUME 9.6 FL (7.4-10.4); PLATELET COUNT 255 /CUMM (130-400); RBC DISTRIBUTION WIDTH 13.5 % (11.5-14.5)
[2016-10-23 18:32] LABS: LITHIUM 0.8 mmol/L (0.6-1.2)
--- NOTE | 2016-10-23 20:59 | ED PSYCH CRISIS CONSULTATION ---
Crisis Consult Basic Assessment Date of Consult: 10/23/16 Responsible Person/Accompanied By: ROSSY Insurance Authorization: Insurance #1: Insurance name: MEDICARE A Phone number: Policy number: [id number] Group number: Authorization number: ED Provider: Patient's ED Provider: ALKA HADDAD MD Primary Care Physician: Patient's PCP: DARRYN PIZANO MD PCP's Current Psychiatrist: [facility] Lizbeth SANTACRUZ Chief Complaint: Altered Mental Status Patient's Quote: "concerned about how off kilter I was feeling" Present Illness: Pt is a 51 year old female. She arrived after to ER after calling 911 at her apartment. "It all started when I was packing up to come here and I lost my keys", but is calm, smiling and cooperative. She states she "doesn't like the dosage of [place] she is on, she states it make me feel funny, and my mouth is always dry". Her level is in the therapeutic range 0.8, she reports she sees Kinza Duff and Magaly coy at [facility]. Pt has her own apartment and reports most of the time that's good she likes the personal space, but she states sometimes its lonely or overwhelming. She denies si/hi/ah reports she saw shadows that looked like cats and dogs over her cabinets, and it concerned her, because "i don't have dogs and cats anymore". She denies drug or alcohol abuse. She isn't;t sure what she would like to do, "maybe I should go home and start over" then she laughs. Pt has a protective order against her exhusband, and he has oe against her, but no other legal issues. She mentions she lost 10 pounds and is proud of that because she has been trying, pt states she has diabetes, thyroid and obesity problems. Pt was last admitted to [facility] in 2016, her diagnosis is Schizoaffective D/O. Patient's Address: [address] [place] [address] Other Phone Number: Who Do You Live With? Patient/Self Family/Informants Interviewed: Spoke with her Father he will follow up with [facility], he will continue to be a support, and he wondered if her medications were going to be adjusted. Allergies - Coded Allergies: lamotrigine (From Lamictal) (Severe, RASH 12/24/15) shrimp (Severe, ANAPHYLAXIS 12/24/15) Fish Containing Products (UNKNOWN 10/23/16) divalproex sodium (From DEPAKOTE) (vomiting 12/25/15) telithromycin (VOMITING AND DIARRHEA 12/24/15) tetracycline (RASH ON HEAD, SCALP GETS REALLY DRY 12/24/15) topiramate (From TOPAMAX) (UNKNOWN 10/23/16) haloperidol (CATATONIC/DISTONIC 12/30/15 12/30/15) levofloxacin (SEVERE DIARRHEA 12/24/15) oxycodone (VOMITING 12/24/15) Current Medications - Scheduled Medications Benztropine Mesylate 1 MG TABLET 1 TAB PO BID MENTAL HEALTH #60 (Reported) Entered as Reported by LINDA ROCK on 10/23/16 1749 Bupropion HCl (Bupropion XL) 300 MG TAB.ER.24H 1 TAB PO DAILY MENTAL HEALTH # 30 (Reported) Entered as Reported by LINDA ROCK on 10/23/16 1749 Famotidine 20 MG TABLET 20 MG PO BID ACID REFLUX #28 TAB Prescribed by JAKOB HATCH APRN on 03/23/16 Fluticasone Propionate 50 MCG/ACTUATION SPRAY.SUSP 2 SPRAY FLORENCIO DAILY ALLERGIES #1 BOT Prescribed by JAKOB HATCH APRN on 03/23/16 Gabapentin 300 MG CAPSULE 1 CAP PO QPM ANXIETY #14 (Reported) Entered as Reported by YASMIN MARIA on 04/27/16 1203 Levothyroxine Sodium 100 MCG TABLET 1 TAB PO DAILY THYROID #90 (Reported) Entered as Reported by LINDA ROCK on 10/23/16 1750 [place] Carbonate 300 MG CAPSULE 600 MG PO 0800 MOOD STABILITY #14 CAP Prescribed by JAKOB HATCH APRN on 03/23/16 [place] Carbonate 300 MG CAPSULE 900 MG PO 2000 MOOD STABILITY #14 CAP Prescribed by JAKOB HATCH APRN on 03/23/16 Metformin HCl 500 MG TABLET 1 TAB PO BID DM #30 (Reported) Entered as Reported by LINDA ROCK on 10/23/16 1750 Montelukast Sodium 10 MG TABLET 10 MG PO DAILY ASTHMA #14 TAB Prescribed by JAKOB HATCH APRN on 03/23/16 Multivitamin (One Daily Multivitamin) 1 EACH TABLET 1 TAB PO DAILY VITAMIN SUPPORT #14 TAB Prescribed by JAKOB HATCH APRN on 03/23/16 Olanzapine 15 MG TABLET 1 TAB PO QHS MENTAL HEALTH (Reported) Entered as Reported by LINDA ROCK on 10/23/16 175 Pravastatin Sodium 40 MG TABLET 1 TAB PO DAILY CHOLESTEROL #90 (Reported) Entered as Reported by MONSTER MAR on 12/24/15 1434 Scheduled PRN Medications Epinephrine (Epipen 2-Laron) 0.3 MG/0.3 ML AUTO.INJCT 0.3 MG IM AD PRN ALLERGIC REACTION #4 (Reported) Entered as Reported by LINDA ROCK on 10/23/16 175 Naproxen (Naprosyn) 500 MG TABLET 1 TAB PO BID PRN pain and inflammation #14 TAB Prescribed by ERIKA KRISHNAN on 04/27/16 Laboratory Results: Laboratory Tests 10/23/161999: Urine Opiates Screen < 100.00, Methadone Screen < 40, Barbiturate Screen < 60, Ur Phencyclidine Scrn < 6.00, Amphetamines Screen 190, U Benzodiazepines Scrn < 85, Urine Cocaine Screen < 50, Urine Cannabis Screen < 5.00 10/23/161754: TSH 1.640, Free T4 0.85 10/23/161754: Anion Gap 12, Estimated GFR 59 L, BUN/Creatinine Ratio 8.0, Glucose 134 H, Calcium 10.2, Total Bilirubin 0.3, AST 32, ALT 51, Alkaline Phosphatase 85, Total Protein 7.0, Albumin 4.1, Globulin 2.9, Albumin/Globulin Ratio 1.4, CBC w Diff NO MAN DIFF REQ, RBC 4.60, MCV 90.8, MCH 29.5, RDW 13.5, MPV 9.6, Gran % 79.6 H, Lymphocytes % 12.1 L, Monocytes % 7.3, Eosinophils % 0.5, Basophils % 0.5, Absolute Granulocytes 8.0 H, Absolute Lymphocytes 1.2, Absolute Monocytes 0.7 H, Absolute Eosinophils 0.1, Absolute Basophils 0, PUBS MCHC 32.5 L, [place] 0.8, Serum Alcohol < 10.0 Past History Past Medical History Neurological: NONE EENT: allergies, rhinitis, sinusitis, LARYNGEAL CYSTS Cardiovascular: hyperlipidemia Respiratory: asthma, bronchitis, obstructive sleep apnea, allergies Gastrointestinal: GERD Hepatic: NONE Renal: NONE Musculoskeletal: NONE Psychiatric: anxiety, depression, insomnia, schizo affective disorder (depressed , with suicidality) Endocrine: hypothyroidism, obesity, diet controlled diabetes Blood Disorders: NONE Cancer(s): NONE 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 Pt is connected to treatment. Pt has a desire to feel better. Physical Limitations (Interventions): None identified. Psychiatric Treatment History Psych Treatment Psychiatric Treatment Yes Inpatient Treatment Yes Outpatient Treatment Yes Location of Treatment [facility] Reason for Treatment Schizoaffective D/O Dates of Treatment 2015 admit and current with [facility] Response to Treatment enjoys connection to care/ social club and groups Diagnosis by History: Schizoaffective D/O, bipolar type Substance Use/Abuse History Drug Use/Abuse Substances Used/Abused No Substance Abuse Treatment Substance Abuse Treatment Past Substance Abuse [place] No Current Mental Status Mental Status Orientation: Person, Place, Situation Affect: Lonely, Variable Speech: WNL Neuro-vegetative: WNL Appearance Appearance- Dress/Hygiene: obese, in johnnycoat, alert Behaviors Thought Process: WNL Thought Content: Visual Hallucinations Memory: WNL Insight: Fair SI/HI Risk Assessment Past Suicidal Ideation/Attempts Yes Current Suicidal Ideation/Att No Past Homicidal Ideation/Att: Yes Current Homicidal Ideation/Attempts No Degree of Intent: None Risk Factors: chronic/serious med cond., history of suicide atmpts, lives alone Lethality Ratin (mild) PTSD Checklist PTSD Done? patient declined ED Management Sitter: Yes Restraints: No DSM5/PS Stressors/Medical Prob Diagnosis' (DSM 5, Stressors, Medical): Schizoaffective D/O bipolar type F25.9 Current GAF: 35 Departure Disposition Psych Medical Clearance Date: 10/23/16 Medically Cleared at: 2030 Time Started: 2029 Time Ended: 2129 Psychiatrist Consulted: Micky Date Disposition Established: 10/23/16 Time Disposition Established: 2129 Plan for Disposition - Modality: Outpatient Facility: [facility] Follow-up Appt Date: 10/24/16 Contact: [facility] providers Rationale for Disposition: Consulted with Dr. Weeks, pt to return to providers and attend regualrly scheduled groups and follow up with [facility], for med adjustments if needed. Referrals PIZANO ,DARRYN Ramos (PCP/Family)
[2016-10-23 23:30] VITALS: BP 132/78
== END 2016-10-23 23:36 ==
LOC: ERH 16:52
PROVIDERS: Emergency Medicine
DX: F31.9 Bipolar disorder, unspecified (principal)
CPT/HCPCS: 80307; 81001; G0463; G0480

== ENCOUNTER 2017-03-29 12:04 | Inpatient (IN) | payer OTHER, MEDICARE ==
[~2017-03-29] VITALS: Ht 170.2 cm; Wt 113.9 kg
[~2017-03-29 12:04] MED LIST changes: +BENZTROPINE MESY1 M1 PO; +BUPROPION XL150 MG PO; +EPIPEN 2-P0.3 MG/0.3 IM; +LEVOTHYROXINE100 MC1 PO; +METFORMIN HCL500 M3 PO
--- NOTE | 2017-03-29 12:17 | ED PSYCHIATRIC COMPLAINT ---
See Addendum History of Present Illness General Chief Complaint: Psychiatric Related Complaint Stated Complaint: BIBA NON-MED COMPLIANT PSYCH Source: patient, old records, EMS Exam Limitations: confusion Vital Signs & Intake/Output Vital Signs & Intake/Output Vital Signs Date Time Temp Pulse Resp B/P B/P Pulse O2 O2 Flow FiO2 Mean Ox Delivery Rate 03/30 0015 98.2 77 20 117/64 97 Room Air 03/29 2131 Room Air 03/29 2131 98.6 68 16 96/60 94 Room Air 03/29 1803 98.4 84 16 94/60 95 Room Air 03/29 1408 97.2 69 16 128/68 97 Room Air 03/29 1309 98 Room Air 03/29 1217 96.9 86 18 110/80 96 Room Air ED Intake and Output 03/30 0000 03/29 1200 Intake Total 300 Output Total Balance 300 Intake, Oral 300 Patient 251 lb Weight Weight Estimated Measurement Method Allergies Coded Allergies: lamotrigine (From Lamictal) (Severe, RASH 12/24/15) shrimp (Severe, ANAPHYLAXIS 12/24/15) Fish Containing Products (ANAPHYLAXIS 11/24/16) divalproex sodium (From DEPAKOTE) (vomiting 12/25/15) telithromycin (VOMITING AND DIARRHEA 12/24/15) tetracycline (RASH ON HEAD, SCALP GETS REALLY DRY 12/24/15) topiramate (From TOPAMAX) (PER PT REPORTS HAS SIDE EFFECTS UNKNOWN 11/24/16) haloperidol (CATATONIC/DISTONIC 12/30/15 12/30/15) levofloxacin (SEVERE DIARRHEA 12/24/15) oxycodone (VOMITING 12/24/15) Reconcile Medications Benztropine Mesylate 1 MG TABLET 1 TAB PO BID MENTAL HEALTH (Reported) Bupropion HCl (Bupropion XL) 150 MG TAB.ER.24H 1 TAB PO QAM MENTAL HEALTH ( Reported) Famotidine 20 MG TABLET 20 MG PO BID ACID REFLUX Gabapentin 300 MG CAPSULE 1 CAP PO QPM ANXIETY (Reported) Levothyroxine Sodium 100 MCG TABLET 1 TAB PO DAILY AC THYROID (Reported) Mangum Carbonate 300 MG CAPSULE 600 MG PO 0800 MOOD STABILITY Mang[place] Carbonate 300 MG CAPSULE 900 MG PO 2000 MOOD STABILITY Metformin HCl 500 MG TABLET 1 TAB PO BID DM (Reported) Montelukast Sodium 10 MG TABLET 10 MG PO DAILY ASTHMA Olanzapine 15 MG TABLET 1 TAB PO QPM MENTAL HEALTH (Reported) Pravastatin Sodium 40 MG TABLET 1 TAB PO DAILY CHOLESTEROL (Reported) Triage Note: PT BIBA FROM OUTPATIENT PSYCH. PER EMS PATIENT WAS SCHEDULED FOR OUTPATIENT LAB DRAW TODAY, HOWEVER, PRESENTED TO OUTPATIENT PSYCH CLINIC WITHOUT APPOINTMENT. PATIENT ALERT TO PERSON AND TIME, NOT LOCATION. PATIENT STATES SHE HAS BEEN TAKING HER MEDICATIONS, HOWEVER, MEDICATIONS PATIENT BROUGHT WITH HER TO HOSPITAL APPEAR PATIENT HAS BEEN NON-MED COMPLAINT WITH LITHIUM Triage Nurses Notes Reviewed? yes HPI: Patient sent over from outpatient psychiatry for evaluation for visual hallucinations and occasional auditory hallucinations and a questionable med noncompliance. Patient denies any suicidal homicidal ideations. Patient states that she occasionally sees shadows and hears a screeching sound. Patient states that she has been taking her medications. (Joyce HOFFMAN,Roe Liriano) Past History Travel History Traveled to [place] past 21 day No Medical History Any Pertinent Medical History? 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 FATHER (Diabetes). Hx Contributory? No (Joyce HOFFMAN,Roe Liriano) Review of Systems Review of Systems Constitutional: Reports: no symptoms. EENTM: Reports: no symptoms. Respiratory: Reports: no symptoms. Cardiovascular: Reports: no symptoms. GI: Reports: no symptoms. Genitourinary: Reports: no symptoms. Musculoskeletal: Reports: no symptoms. Skin: Reports: no symptoms. Neurological/Psychological: Reports: see HPI. Hematologic/Endocrine: Reports: no symptoms. Immunologic/Allergic: Reports: no symptoms. All Other Systems: Reviewed and Negative (Joyce HOFFMAN,Roe Liriano) Physical Exam Physical Exam General Appearance: well developed/nourished, mild distress Head: atraumatic Eyes: Bilateral: PERRL, EOMI. Ears, Nose, Throat: normal pharynx, normal ENT inspection, hearing grossly normal Neck: normal inspection, supple, full range of motion Respiratory: normal breath sounds, chest non-tender, no respiratory distress, lungs clear Cardiovascular: regular rate/rhythm, normal peripheral pulses Gastrointestinal: normal bowel sounds, soft, non-tender Extremities: normal range of motion Neurological/Psychiatric: no motor/sensory deficits, awake, alert Appearance/Memory/Insight: appropriate appearance, appropriate insight Behavoir/Eye Contact/Speech: cooperative, normal speech, good eye contact Thoughts/Hallucinations: normal thought pattern, no apparent hallucination Skin: intact, normal color, warm/dry SAD PERSONS Done? CRISIS CONSULT OBTAINED (Joyce HOFFMAN,Roe Liriano) Progress Differential Diagnosis: drug intoxication, drug overdose, drug withdrawal, electrolyte abnormality Plan of Care: Orders Procedure Date/time Status Patient Safety Monitor 03/30 0700 Active Patient Safety Monitor 03/30 0300 Active Regular Diet 03/29 D Active Patient Safety Monitor 03/29 2300 Active Patient Safety Monitor 03/29 1900 Active URINE DRUG SCREEN FOR ER ONLY 03/29 1622 Complete URINALYSIS 03/29 1622 Complete Continuous Observation Monitor 03/29 1213 Active TSH REFLEX 03/29 1213 Complete LITHIUM 03/29 1213 Complete ETHANOL 03/29 1213 Complete COMPREHENSIVE METABOLIC PANEL 03/29 1213 Complete CBC WITHOUT DIFFERENTIAL 03/29 1213 Complete ED CRISIS PSYCH CONSULT 03/29 1213 Active Current Medications Sig/Catarino Start time Last Medication Dose Stop Time Status Admin Bupropion HCl 150 MG QAM 03/30 1000 UNVr (Wellbutrin XL) Montelukast Sodium 10 MG DAILY 03/30 1000 UNVr (Singulair) Mangum Carbonate 600 MG 0800 03/30 0800 UNVr (Mangum Carbonate) Levothyroxine Sodium 0.1 MG DAILY AC 03/30 0700 UNVr (Synthroid) Benztropine Mesylate 1 MG BID 03/290 UNVr 03/29 (Cogentin 1 MG 2209 Tablet) Famotidine 20 MG BID 03/29 2199 UNVr 03/29 (Pepcid) 220 Gabapentin 300 MG QPM 03/29 2199 UNVr 03/29 (Neurontin) 2208 Metformin HCl 500 MG BID 03/29 2199 UNVr 03/29 (Glucophage) 2208 Olanzapine 15 MG QPM 03/29 2199 UNVr 03/29 (Zyprexa) 2208 [place]um Carbonate 900 MG 03/29 UNVr 03/29 (Mangum Carbonate) 224 Pravastatin Sodium 40 MG 1700 03/29 1699 UNVr 03/29 (Pravachol) 2208 Laboratory Tests 03/29/17 1830: Urine Opiates Screen < 100.00, Methadone Screen < 40, Barbiturate Screen < 60, Ur Phencyclidine Scrn < 6.00, Amphetamines Screen 250, U Benzodiazepines Scrn < 85, Urine Cocaine Screen < 50, Urine Cannabis Screen < 5.00, Urinalysis LIGHT H , Urine Color YEL, Urine Clarity CLEAR, Urine pH 6.0, Ur Specific [place] 1.010, Urine Protein NEG, Urine Ketones NEG, Urine Nitrite NEG, Urine Bilirubin NEG, Urine Urobilinogen 0.2, Ur Leukocyte Esterase SMALL H, Ur Microscopic SEDIMENT EXAMINED, Urine WBC 5-10 H, Ur Epithelial Cells MANY H, Urine Bacteria MOD H, Urine Hemoglobin NEG, Urine Glucose NEG 03/29/17 1242: Anion Gap 15, Estimated GFR > 60, BUN/Creatinine Ratio 12.2, Glucose 135 H, Calcium 9.7, Total Bilirubin 0.3, AST 18, ALT 43, Alkaline Phosphatase 80, Total Protein 7.3, Albumin 4.2, Globulin 3.1, Albumin/Globulin Ratio 1.4, TSH &T3 & Free T4 Intrp 0.505, CBC w Diff NO MAN DIFF REQ, RBC 4.89, MCV 90.2, MCH 29.8, RDW 13.6, MPV 9.3, Gran % 77.5 H, Lymphocytes % 15.5 L, Monocytes % 5.6, Eosinophils % 0.2, Basophils % 1.2, Absolute Granulocytes 6.1, Absolute Lymphocytes 1.2, Absolute Monocytes 0.4, Absolute Eosinophils 0, Absolute Basophils 0.1, PUBS MCHC 33.1, [place]um 0.7, Serum Alcohol < 10.0 Hand-Off Endorsed To: Andrew Ray MD Endorsed Time: 1899 Pending: consult (Joyce HOFFMAN,Roe Liriano) Hand-Off Endorsed To: Roe Cook MD Endorsed Time: 0700 Pending: consult (re-eval) (Flor HOFFMAN,Andrew) Departure Departure Disposition: STILL A PATIENT Condition: Stable Clinical Impression Primary Impression: Medical non-compliance Referrals: Tyler Galindo HOFFMAN (PCP/Family) Departure Forms: Customer Survey General Discharge Information (Roe Cook MD)
--- NOTE | 2017-03-29 12:47 | ED PSY CRISIS COLLATERAL NOTE ---
Collateral Note Collateral Note Family/Inform/Barney Contacts: Crisis recieved call from June Brit from OP stating that she was sending over a former patient who ended up in the outpatient program without an appointment. Per June, pt appeared confused stating she had a blood draw scheduled today at (however no appt was scheduled in the system). She is a currently involved with [facility].
[2017-03-29 12:54] LABS: ABSOLUTE BASOPHIL COUNT 0.1 /CUMM (0.0-0.2); ABSOLUTE EOSINOPHIL COUNT 0 /CUMM (0.0-0.7); ABSOLUTE GRANULOCYTE CT 6.1 /CUMM (1.4-6.5); ABSOLUTE LYMPH COUNT 1.2 /CUMM (1.2-3.4); ABSOLUTE MONOCYTE COUNT 0.4 /CUMM (0.10-0.60); BASOPHIL % 1.2 % (0.0-2.0); EOSINOPHIL % 0.2 % (0-5); GRANULOCYTE % 77.5 % (42.2-75.2); HEMATOCRIT 44.1 % (37-47); MEAN CORPUSCULAR HGB 29.8 PG (27.0-31.0); MEAN CORPUSCULAR HGB CONC 33.1 G/DL (33.0-37.0); MEAN CORPUSCULAR VOLUME 90.2 FL (81.0-99.0); MEAN PLATELET VOLUME 9.3 FL (7.4-10.4); PLATELET COUNT 268 /CUMM (130-400); RBC DISTRIBUTION WIDTH 13.6 % (11.5-14.5); RED BLOOD CELL CT 4.89 /CUMM (4.20-5.40); WHITE BLOOD CELL COUNT 7.8 /CUMM (4.8-10.8)
[2017-03-29 13:22] LABS: LITHIUM 0.7 mmol/L (0.6-1.2)
--- NOTE | 2017-03-29 17:11 | ED PSY CRISIS COLLATERAL NOTE ---
Collateral Note Collateral Note Family/Inform/Barney Contacts: mortgage lender spoke to patient's father, Bert Drake ([phone]). He was not aware that pt was in ED. mortgage lender explained how patient came to Hospital for a blood draw then walked over to Outpatient Building and presented confused. Father stated that pt has been increasingly more confused. He verified that pt told him that she needed to get a blood draw but since it was [place], he advised her to wait until Monday03/28/17 to go. Father reports that patient has someone from [facility] to come in and help pt with her medication. Father reports this person typically comes Monday through Monday. Father was seeing patient on the weekends to go grocery shopping and take her out to lunch. However, recently he has been doing this during the week. He states she generally recalls when he is coming but has been increasinly more confused and forgetful. He is very concerned about her state of increased confusion and asked if her previous treatment of ECT could be contributing to this. He shared that the last time she had ECT was several years ago through [facility].
--- NOTE | 2017-03-30 08:04 | ED PSYCH CRISIS CONSULTATION ---
Crisis Consult Basic Assessment Date of Consult: 03/30/17 Responsible Person/Accompanied By: self Insurance Authorization: Insurance #1: Insurance name: MEDICARE A Phone number: Policy number: [id number] Group number: Authorization number: ED Provider: Patient's ED Provider: Joyce HOFFMAN,Roe Liriano Primary Care Physician: Patient's PCP: Galindo Tyler MD PCP's Current Psychiatrist: Rose Rangel APRN [facility] [phone] Chief Complaint: Psychiatric Related Complaint Patient's Quote: I keep tipping over. I'm losing my speech. Present Illness: pt is a 51 yo female biba to [facility] yesterday afternoon. Pt had been a previous OPS pt and showed up their yestrday confused/disoriented thinking she had an appointment. Pt has a long history of treatment for schizoaffective d /o and has had several inpatient admissions at [facility] beginning in 2004 and most recent February 2016. Past has a hx of SI but currently denies thoughts to harm self. Pt reports feeling depressed, lonely, confused and experiencing visual hallucinations that scare her. Pt denies HI but reports past thoughts to hurt ex -. Pt denies etoh or substance use. Pt reports treatment with Rose Rangel APRN at [facility] and is prescribed Wellbutrin, [place], Zyprexa and Cogentin. Pt isn't sure she is med compliant. She reports often dropping meds on the floor. She reports visiting nurse no longer comes. Pt reports she lives alone and other than contacts at Care doesn't go out much. She reports poor sleep, anhedonia and hopelessness. Pt presents as sedated, difficulty maintaining focus with soft mumbled speech. Pt apprears disheveled, tearful and disoriented. Case reviewed with Dr Adame with recommendation for inpatient admission. Pt is in agreement with plan and has signed voluntary admission form. Patient's Address: [address] [place] [address] Other Phone Number: Who Do You Live With? Patient/Self Family/Informants Interviewed: collateral provided by pt father Bert . see note Allergies - Coded Allergies: lamotrigine (From Lamictal) (Severe, RASH 12/24/15) shrimp (Severe, ANAPHYLAXIS 12/24/15) Fish Containing Products (ANAPHYLAXIS 11/24/16) divalproex sodium (From DEPAKOTE) (vomiting 12/25/15) telithromycin (VOMITING AND DIARRHEA 12/24/15) tetracycline (RASH ON HEAD, SCALP GETS REALLY DRY 12/24/15) topiramate (From TOPAMAX) (PER PT REPORTS HAS SIDE EFFECTS UNKNOWN 11/24/16) haloperidol (CATATONIC/DISTONIC 12/30/15 12/30/15) levofloxacin (SEVERE DIARRHEA 12/24/15) oxycodone (VOMITING 12/24/15) Current Medications - Scheduled Medications Benztropine Mesylate 1 MG TABLET 1 TAB PO BID MENTAL HEALTH #60 (Reported) Entered as Reported by Nicole Grider on 10/23/16 1749 Bupropion HCl (Bupropion XL) 150 MG TAB.ER.24H 1 TAB PO QAM MENTAL HEALTH ( Reported) Entered as Reported by Nicole Grider on 10/23/16 1749 Famotidine 20 MG TABLET 20 MG PO BID ACID REFLUX #28 TAB Prescribed by Nickolas Bustillo APRN on 03/23/16 Gabapentin 300 MG CAPSULE 1 CAP PO QPM ANXIETY #14 (Reported) Entered as Reported by Leopoldo Rangel on 04/27/16 1203 Levothyroxine Sodium 100 MCG TABLET 1 TAB PO DAILY AC THYROID #90 (Reported) Entered as Reported by Nicole Grider on 10/23/16 1750 [place] Carbonate 300 MG CAPSULE 600 MG PO 0800 MOOD STABILITY #14 CAP Prescribed by Nickolas Bustillo APRN on 03/23/16 [place]ante[place] Carbonate 300 MG CAPSULE 900 MG PO 2000 MOOD STABILITY #14 CAP Prescribed by Nickolas Bustillo APRN on 03/23/16 Metformin HCl 500 MG TABLET 1 TAB PO BID DM #30 (Reported) Entered as Reported by Nicole Grider on 10/23/16 1750 Montelukast Sodium 10 MG TABLET 10 MG PO DAILY ASTHMA #14 TAB Prescribed by Nickolas Bustillo APRN on 03/23/16 Olanzapine 15 MG TABLET 1 TAB PO QPM MENTAL HEALTH (Reported) Entered as Reported by Nicole Grider on 10/23/16 1750 Pravastatin Sodium 40 MG TABLET 1 TAB PO DAILY CHOLESTEROL #90 (Reported) Entered as Reported by Marian Montoya on 12/24/15 1434 Laboratory Results: Laboratory Tests 03/29/17 1830: Urine Opiates Screen < 100.00, Methadone Screen < 40, Barbiturate Screen < 60, Ur Phencyclidine Scrn < 6.00, Amphetamines Screen 250, U Benzodiazepines Scrn < 85, Urine Cocaine Screen < 50, Urine Cannabis Screen < 5.00, Urinalysis LIGHT H , Urine Color YEL, Urine Clarity CLEAR, Urine pH 6.0, Ur Specific [place] 1.010, Urine Protein NEG, Urine Ketones NEG, Urine Nitrite NEG, Urine Bilirubin NEG, Urine Urobilinogen 0.2, Ur Leukocyte Esterase SMALL H, Ur Microscopic SEDIMENT EXAMINED, Urine WBC 5-10 H, Ur Epithelial Cells MANY H, Urine Bacteria MOD H, Urine Hemoglobin NEG, Urine Glucose NEG 03/29/17 1242: Anion Gap 15, Estimated GFR > 60, BUN/Creatinine Ratio 12.2, Glucose 135 H, Calcium 9.7, Total Bilirubin 0.3, AST 18, ALT 43, Alkaline Phosphatase 80, Total Protein 7.3, Albumin 4.2, Globulin 3.1, Albumin/Globulin Ratio 1.4, TSH &T3 & Free T4 Intrp 0.505, CBC w Diff NO MAN DIFF REQ, RBC 4.89, MCV 90.2, MCH 29.8, RDW 13.6, MPV 9.3, Gran % 77.5 H, Lymphocytes % 15.5 L, Monocytes % 5.6, Eosinophils % 0.2, Basophils % 1.2, Absolute Granulocytes 6.1, Absolute Lymphocytes 1.2, Absolute Monocytes 0.4, Absolute Eosinophils 0, Absolute Basophils 0.1, PUBS MCHC 33.1, [place] 0.7, Serum Alcohol < 10.0 Past History Past Medical History Neurological: NONE EENT: allergies, rhinitis, sinusitis, LARYNGEAL CYSTS Cardiovascular: hyperlipidemia Respiratory: asthma, bronchitis, obstructive sleep apnea, allergies Gastrointestinal: GERD Hepatic: NONE Renal: NONE Musculoskeletal: NONE Psychiatric: anxiety, depression, insomnia, schizo affective disorder (depressed , with suicidality) Endocrine: hypothyroidism, obesity, diet controlled diabetes Blood Disorders: NONE Cancer(s): NONE 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 Pt is connected to treatment. Pt has a desire to feel better. Physical Limitations (Interventions): None identified. Psychiatric Treatment History Psych Treatment Psychiatric Treatment Yes Inpatient Treatment Yes Outpatient Treatment Yes Location of Treatment C[facility]; IOP; Care Reason for Treatment schizoaffective d/o hx of SI and VH Dates of Treatment last CPS-02/2016; cuurently active with Care Response to Treatment pt hasn't required inpatient tx since Feb 2016; unclear if pt is currently compliant with medications Diagnosis by History: Schizoaffective D/O, bipolar type Substance Use/Abuse History Drug Use/Abuse Substances Used/Abused No Substance Abuse Treatment Substance Abuse Treatment Past Substance Abuse [place] No Inpatient Treatment No Outpatient Treatment No Comments: pt denies etoh and substance use Current Mental Status Mental Status Orientation: Confused Affect: Depressed Speech: Mumbled, Soft Neuro-vegetative: Anhedonia, Concentration Poor, Energy Decreased, Sleep Disturbance Appearance Appearance- Dress/Hygiene: pt in hospital scrubs; disheveled; somnalenent, disoriented; difficulty concentrating Behaviors Thought Process: Disorganized Thought Content: Visual Hallucinations Memory: Impaired Insight: Fair SI/HI Risk Assessment Past Suicidal Ideation/Attempts Yes Current Suicidal Ideation/Att No Past Homicidal Ideation/Att: Yes Current Homicidal Ideation/Attempts No Degree of Intent: Thoughts/No Intent Gravely Disabled: Poor Judgment Risk Factors: chronic/serious med cond., high anxiety/distress, history of suicide atmpts, SA/MH hospitalized, lives alone Lethality Ratin PTSD Checklist PTSD Done? patient declined ED Management Sitter: Yes Restraints: No DSM5/PS Stressors/Medical Prob Diagnosis' (DSM 5, Stressors, Medical): Schizoaffective d/o depressed F25.1 Current GAF: 25 Comments: pt reports feeling lonely, anxious about seeing shadows; reports not being sure she is taking medications consistently. disoriented, confused, tearful Departure Disposition Psych Medical Clearance Date: 03/30/17 Medically Cleared at: 0715 Time Started: 0715 Time Ended: 0800 Psychiatrist Consulted: Angelique Adame MD Date Disposition Established: 03/30/17 Time Disposition Established: 829 Plan for Disposition - Modality: Inpatient Psychiatry Facility: [facility] Rationale for Disposition: Pt will be admitted to [facility] for medication evaluation and stabilization Referrals Tyler Galindo HOFFMAN (PCP/Family)
--- NOTE | 2017-03-30 11:44 | Cons- Medical ---
General Information and HPI Consulting Request Date of Consult: 03/30/17 Requested By: Angelique Adame MD Reason for Consult: Medical H&P Source of Information: patient, old records Exam Limitations: no limitations History of Present Illness: 51-year-old female past medical history of obesity status post bariatric surgery , diabetes, hypothyroidism, hypertension and questionable gastritis. She is here with depressive complaints and questionable psychosis. Apparently she was confused and disoriented and showed up at the outpatient clinic saying she had a psychiatric appointment. Her speech is a little slurred although she is awake, alert and able to provide me with an entire history. She says she feels that ever since this regimen of medications has started for her she's been feeling sluggish, lethargic with slurred speech. Denies nausea, vomiting, she denies chest pain, she denies cough with sputum and she says she is constipated. She says that ever since her bariatric surgery she's lost about 100 pounds. Allergies/Medications Allergies: Coded Allergies: lamotrigine (From Lamictal) (Severe, RASH 12/24/15) shrimp (Severe, ANAPHYLAXIS 12/24/15) Fish Containing Products (ANAPHYLAXIS 11/24/16) divalproex sodium (From DEPAKOTE) (vomiting 12/25/15) telithromycin (VOMITING AND DIARRHEA 12/24/15) tetracycline (RASH ON HEAD, SCALP GETS REALLY DRY 12/24/15) topiramate (From TOPAMAX) (PER PT REPORTS HAS SIDE EFFECTS UNKNOWN 11/24/16) haloperidol (CATATONIC/DISTONIC 12/30/15 12/30/15) levofloxacin (SEVERE DIARRHEA 12/24/15) oxycodone (VOMITING 12/24/15) Home Med List: Benztropine Mesylate 1 MG TABLET 1 TAB PO BID MENTAL HEALTH (Reported) Bupropion HCl (Bupropion XL) 150 MG TAB.ER.24H 1 TAB PO QAM MENTAL HEALTH ( Reported) Famotidine 20 MG TABLET 20 MG PO BID ACID REFLUX Gabapentin 300 MG CAPSULE 1 CAP PO QPM ANXIETY (Reported) Levothyroxine Sodium 100 MCG TABLET 1 TAB PO DAILY AC THYROID (Reported) [place] Carbonate 300 MG CAPSULE 600 MG PO 0800 MOOD STABILITY [place] Carbonate 300 MG CAPSULE 900 MG PO 2000 MOOD STABILITY Metformin HCl 500 MG TABLET 1 TAB PO BID DM (Reported) Montelukast Sodium 10 MG TABLET 10 MG PO DAILY ASTHMA Olanzapine 15 MG TABLET 1 TAB PO QPM MENTAL HEALTH (Reported) Pravastatin Sodium 40 MG TABLET 1 TAB PO DAILY CHOLESTEROL (Reported) Current Medications: Current Medications Sig/Catarino Start time Last Medication Dose Route Stop Time Status Admin Benztropine Mesylate 1 MG BID 03/29 2200 AC 03/30 PO 1001 Bupropion HCl 150 MG QAM 03/30 1000 AC 03/30 PO 1001 Famotidine 0 .STK-MED ONE 03/30 1000 DC PO Famotidine 20 MG BID 03/29 2200 AC 03/30 PO 1001 Famotidine 0 .STK-MED ONE 03/29 2151 DC PO Gabapentin 300 MG QPM 03/29 2200 AC 03/29 PO 2209 Gabapentin 0 .STK-MED ONE 03/29 215 DC PO Levothyroxine Sodium 0.1 MG DAILY AC 03/30 0700 AC 03/30 PO 0810 [place] Carbonate 600 MG 0800 03/30 0800 AC 03/30 PO 0810 [place] Carbonate 900 MG 2000 03/29 2000 AC 03/29 PO 2244 Metformin HCl 500 MG BID 03/29 2200 AC 03/30 PO 1001 Montelukast Sodium 10 MG DAILY 03/30 1000 AC 03/30 PO 1001 Olanzapine 15 MG QPM 03/29 2200 AC 03/29 PO 2209 Olanzapine 0 .STK-MED ONE 03/29 2151 DC PO Pravastatin Sodium 40 MG 1700 03/29 1700 AC 03/29 PO 2209 Review of Systems Review of Systems Constitutional: Denies: no symptoms, chills, diaphoresis, fever. Cardiovascular: Denies: no symptoms, chest pain, edema, orthopena. Respiratory: Denies: no symptoms, cough, hemoptysis. GI: Denies: no symptoms, abdominal pain, bloating. Genitourinary: Denies: no symptoms, discharge, dysuria. All Other Systems: Reviewed and Negative Comments Pt says that her meds are making her sluggish and lethargic Past History Travel History Traveled to [place] past 21 day No Medical History Neurological: NONE EENT: allergies, rhinitis, sinusitis, LARYNGEAL CYSTS Cardiovascular: hyperlipidemia Respiratory: asthma, bronchitis, obstructive sleep apnea, allergies Gastrointestinal: GERD Hepatic: NONE Renal: NONE Musculoskeletal: NONE Psychiatric: anxiety, depression, insomnia, schizo affective disorder (depressed , with suicidality) Endocrine: hypothyroidism, obesity, diet controlled diabetes Blood Disorders: NONE Cancer(s): NONE 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 FATHER (Diabetes). Psychosocial History Who Do You Live With? parent Services at Home: None Primary Language: Guyanese Smoking Status: Never Smoked ETOH Use: denies use Illicit Drug Use: denies illicit drug use Functional Ability ADLs Independent: dressing, eating, toileting, bathing. Ambulation: independent IADLs Independent: finances, food prep, telephone, transportation. Exam & Diagnostic Data Last 24 Hrs of Vital Signs/I&O Vital Signs Date Time Temp Pulse Resp B/P B/P Pulse O2 O2 Flow FiO2 Mean Ox Delivery Rate 03/30 1048 97.1 88 18 128/80 97 03/30 0708 98.0 70 20 114/96 96 Room Air 03/30 0240 98.0 72 20 98/72 98 Room Air 03/30 0015 98.2 77 20 117/64 97 Room Air 03/29 2131 Room Air 03/29 2131 98.6 68 16 96/60 94 Room Air 03/29 1803 98.4 84 16 94/60 95 Room Air 03/29 1408 97.2 69 16 128/68 97 Room Air 03/29 1309 98 Room Air 03/29 1217 96.9 86 18 110/80 96 Room Air Intake & Output 03/30 1600 03/30 0800 03/30 0000 Intake Total 300 Output Total Balance 300 Intake, Oral 300 Physical Exam General Appearance: well developed/nourished, alert, awake, comfortable Head: atraumatic, normal appearance Eyes: Bilateral: normal appearance, PERRL, EOMI. Ears, Nose, Throat: normal pharynx, normal ENT inspection Neck: normal inspection, supple, full range of motion Respiratory: normal breath sounds, chest non-tender, no respiratory distress Cardiovascular: regular rate/rhythm Gastrointestinal: normal bowel sounds, soft, non-tender, no organomegaly Back: normal inspection, normal range of motion Neurologic/Psych: no motor/sensory deficits, awake, alert, oriented x 3 Other Physical Findings: She uses a walker to walk but I think that's more because of the obesity and arthritic issues rather than neurological. She is nonfocal neurologically, gross motor and sensory are intact, reflexes are 2+ and symmetric. Cranial nerves III-12 are grossly intact. No cerebellar signs elicited. Last 24 Hrs of Labs/Salo: Laboratory Tests 03/29/17 1830: Urine Opiates Screen < 100.00, Methadone Screen < 40, Barbiturate Screen < 60, Ur Phencyclidine Scrn < 6.00, Amphetamines Screen 250, U Benzodiazepines Scrn < 85, Urine Cocaine Screen < 50, Urine Cannabis Screen < 5.00, Urinalysis LIGHT H , Urine Color YEL, Urine Clarity CLEAR, Urine pH 6.0, Ur Specific [place] 1.010, Urine Protein NEG, Urine Ketones NEG, Urine Nitrite NEG, Urine Bilirubin NEG, Urine Urobilinogen 0.2, Ur Leukocyte Esterase SMALL H, Ur Microscopic SEDIMENT EXAMINED, Urine WBC 5-10 H, Ur Epithelial Cells MANY H, Urine Bacteria MOD H, Urine Hemoglobin NEG, Urine Glucose NEG 03/29/17 1242: Anion Gap 15, Estimated GFR > 60, BUN/Creatinine Ratio 12.2, Glucose 135 H, Calcium 9.7, Total Bilirubin 0.3, AST 18, ALT 43, Alkaline Phosphatase 80, Total Protein 7.3, Albumin 4.2, Globulin 3.1, Albumin/Globulin Ratio 1.4, TSH &T3 & Free T4 Intrp 0.505, CBC w Diff NO MAN DIFF REQ, RBC 4.89, MCV 90.2, MCH 29.8, RDW 13.6, MPV 9.3, Gran % 77.5 H, Lymphocytes % 15.5 L, Monocytes % 5.6, Eosinophils % 0.2, Basophils % 1.2, Absolute Granulocytes 6.1, Absolute Lymphocytes 1.2, Absolute Monocytes 0.4, Absolute Eosinophils 0, Absolute Basophils 0.1, PUBS MCHC 33.1, [place] 0.7, Serum Alcohol < 10.0 Assessment/Plan Assessment/Plan 51-year-old female past medical history of diabetes, hypertension, obesity, hypothyroidism and hyperlipidemia was here with depressive symptoms. Psychiatry to reevaluate the med regimen given the feeling of sluggishness and slurred speech and lethargy that she is complaining of. Restart her metformin and her statin and her levothyroxine. Diabetic diet with fingersticks twice a day. Start MiraLAX for constipation. And follow closely. Problem List: 1. Hyperlipidemia 2. Hypothyroid Consult Acknowledgment - Thank you for your consult request.
[2017-03-30 12:39] VITALS: BP 138/84
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
--- NOTE | 2017-03-30 15:15 | CPS PROVIDER INIT ASMT PSYCH ---
Psychiatric Admission Welt Trimming Machine Operator's Note Reviewed: Yes Patient Seen and Examined: Yes Identifying Information: 42 yo DWF with schizoaffective d/o, known to me from her prior tx at , admitted today on a voluntary basis, referred by ER. Chief Complaint: Confusion. Reported tipping over and change in speech. Patient prsented to the ER on 03/29/17 after presenting to [facility] without an appointment, looking to have a lithium level drawn. She was confused about which [facility] to report to for phlebotomy. Reaction to Hospitalization: "I'm familiar." Feels okay with being here, a little sad for now. History of Present Illness Onset of Illness: CMI. Worsening confusion for the past couple of weeks. Circumstances Leading to Admission: Confusions, slurred speech, gait disturbance. Problem(s) Justifying Need for Admission: Mental status changes. Medication assessment/adjustment. Other HPI: Reports frustration trying to get neighbors to visit her. Reports difficulty achieving socialization. Reports increasing confusiong x 2-3 weeks. Reports she presented to the wrong building for a lithium level draw. Reports a male is interested in her but does not want to visit. "I was kind of faking it 'til I make it." Reports last had a visiting nurse in December. Has no insurance benefit for . Sleep: wasn't good yesterday, very broken, didn't use her CPAP. Appetite: not good, not eating enough. Weight: reports she lost 53#/9 years. Energy: kind of low right now but getting back to where she wants it to be. Past Psychiatric History Past Diagnosis(es)- if any: Schizoaffective disorder. Past Precipitating Factors- if any: Ex- had a new girlfriend. - Include inpatient and outpatient treatment Treatment History: OPT with Rose Rangel APRN at [facility]. Past ECT (9) at [facility]. Inpatient: , [place], [facility]. History of Suicide Attempts or Gestures Denies past attempts. Substance Abuse History: Denies tobacco, alcohol and drugs. Allergies: Coded Allergies: lamotrigine (From Lamictal) (Severe, RASH 12/24/15) shrimp (Severe, ANAPHYLAXIS 12/24/15) Fish Containing Products (ANAPHYLAXIS 11/24/16) divalproex sodium (From DEPAKOTE) (vomiting 12/25/15) telithromycin (VOMITING AND DIARRHEA 12/24/15) tetracycline (RASH ON HEAD, SCALP GETS REALLY DRY 12/24/15) topiramate (From TOPAMAX) (PER PT REPORTS HAS SIDE EFFECTS UNKNOWN 11/24/16) haloperidol (CATATONIC/DISTONIC 12/30/15 12/30/15) levofloxacin (SEVERE DIARRHEA 12/24/15) oxycodone (VOMITING 12/24/15) Home Med List: Singulair 10 mg daily Wellbutrin XL 150 mg daily [place] carbonate 600 mg qAM and 900 mg qPM Levothyroxine 0.1 mg daily Zyprexa 15 mg qhs Glucophage 500 mg b.i.d. Pepcid 20 mg b.i.d. Cogentin 1 mg b.i.d. Zocor 40 mg daily Flonase prn CPAP - Include any medical condition(s) that may - impact the patient's recovery/remission Past Medical History: Morbidly obese. Using a walker now but normally doesn't. COSA. Type II DM. Hypothyroidism. Hyperlipidemia. Lapband insertion and subsequent removal. Allergies. Asthma. Past History Medical History Neurological: NONE EENT: allergies, rhinitis, sinusitis, LARYNGEAL CYSTS Cardiovascular: hyperlipidemia Respiratory: asthma, bronchitis, obstructive sleep apnea, allergies Gastrointestinal: GERD Hepatic: NONE Renal: NONE Musculoskeletal: NONE Psychiatric: anxiety, depression, insomnia, schizo affective disorder (depressed , with suicidality) Endocrine: hypothyroidism, obesity, diet controlled diabetes Blood Disorders: NONE Cancer(s): NONE HANDLE ATTACHER/Reproductive: NONE Other Medical Hx: low pneumonia titers History of MRSA: No History of VRE: No History of CDIFF: No Isolation History: Standard Tetanus Vaccine: 09/09/16 Surgical History Surgical History: LAP BAND REMOVAL Psychiatric Family/Social Hx Family History Psychiatric Illness: PGGM was psychiatrically hospitalized and from a high dose of medication ( may have had drew). Father was severely depressed due to no sleep x 6 months. Mother ?depression + Alzheimer's. Substance Use: None. Suicides: Father attempted. Social History Living Situation: Lives alone in an apartment. Significant Relationships (family/friends): Parents are . Father lives in [place] and mother lives in [place]. Brother, 51, lives in [place] but is moving but staying in the area. Sister, 47, lives in [place] and is . Education: Studied 2 years of college, engineering and then was hospitalized. Studied social work at [employer]. Studied medical assistance at [employer]. Vocation/Occupation: Disabled x 15 years with bipolar d/o. 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 Legal: Arrested with ex- for D.V. in 06/09. Patient reports that charges against her were dropped. Denies other arrests. Healthly Behaviors Screening Tobacco Screening Tobacco Use from ED Docu: Never used - If tobacco counseling indicated - the following topics are required. - #1 Recognizing dangerous situations. - #2 Coping Skills. - #3 Basic information about quitting. Status of Tobacco Cessation Counseling: Not Applicable Cessation Med Status Not Applicable Alcohol Screening - ETOH screen POS if BAL >=80 or Audit-C>= M4/F3 Audit-C Score from Diag Assess: 0 Blood Alcohol Level: Laboratory Tests 03/29 1242 Toxicology Serum Alcohol (<10 MG/DL) < 10.0 Alcohol Use Screening Results: Neg per Audit C &/or BAL - If ETOH counseling indicated - the following topics are required. - #1 Express concern about the patient's - drinking at unhealthy levels, include informing - of national norms for moderate drinking: - men <= 14 drinks/week, max 4 drinks/occasion - women <= 7 drinks/week, max 3 drinks/occasion - #2 Providing feedback, including linking alcohol to - negative physical effects (liver injury, hypertension) - negative emotional effects (relationship problems and - depression) - negative occupational consequences (reduced work - performance) - #3 Advising the patient to abstain from alcohol or - to drink below national norms for moderate drinking - (as listed above). Status of ETOH Use Counseling: N/A B/C NO ETOH Use Metabolic Screening - Screen if on a Neuroleptic Medication - Metabolic screening should include: - Blood Pressure, BMI, Glucose or Hgb A1c, & a - Lipid profile from within the past 365 days. Metabolic Screening () Not Applicable, patient not on a neuroleptic. OR () Patient on a neuroleptic(s) . Enter below results for Hemoglobin A1C, and lipid panel if obtained during the last 365 days. BMI: 39.300 Blood Pressure: 138/84 Laboratory Results From [facility] (If applicable): [x] Lab Cholesterol 241 MG/DL H 03/29/17 1242 Cholesterol/HDL Ratio 8 % H 03/29/17 1242 HDL Cholesterol 29 mg/dL L 03/29/17 1242 Hemoglobin A1c 5.7 % 03/29/17 1242 LDL Cholesterol, Calc 149 mg/dL H 03/29/17 1242 Triglycerides 316 mg/dL H 03/29/17 1242 Exam and Plan Mental Status Examination Ambulation Status: Using a walker. Appearance: Casually dressed WF sitting in a chair in [facility]. Attitude towards examiner: Calm, polite and cooperative. Psychomotor activity: No psychomotor agitation or retardation. Behavior: Seems almost a little silly. Quality of speech: Very slurred and at times difficult to understand. Normal in volume. Affect: Upbeat, not quite hypomanic. Mood: Scared that things are changing for the worse instead of the better. Sad 10/03. Anxiety 07/04. Feels hopeless some times. Feels helpless; feels she needs somebody to put her life together. Denies feeling worthless, just depressed. Denies feeling guilty. Suicidal Ideation: Denies active and passive SI. Homicidal Ideation: Denies HI. Hallucinations: Reports having AHs some times, conversations. At times sees shapes in rug pattern but not having actual VHs. Paranoid/Delusional Material: Denies PI and magical prajapati. Difficulties with thought organization: Mildly disorganized/loose. Insight: Fair. Judgment: Limited. Orientation: Ox3 except 03/29/2017. Cognition: Grossly intact. Memory Function: Grossly intact. Estimate of intellectual functioning: Averge to above average. Assets/Strengths Patient Identified Assets/Strengths: Being social. Handles her own checkbook (needs to pay rent this week). Impression/Plan Impression and Plan: Patient is here with mental status changes: confusion, slurred speech and ? ataxia. Affect is upbeat, almost hypomanic. - Include all active medical diagnosis that require tx DSM 5 Diagnosis(es): Schizoaffective d/o, bipolar type. Speech and gait disturbance. Morbid obesity. COSA. Hyperlipidemia. Hypothyroidism. GERD. Asthma/allergies. - Initial Tx Plan for Active Psych & Medical Conditions Treatment Plan: The patient will be monitored for confusion, mood disturbance, gait disturbance and speech disturbance. I would normally suspect lithium toxicity as the cause of confusion and speech/ gait change but lithium level was in therapeutic range. Will change WB to WB SR 100 mg daily (dose reduction). Will reduce Zyprexa to 10 mg qhs (but this may need to be reversed back to 15 mg ). I suggested to patient that she ask her father to bring in CPAP once it is safe from the snowstorm. I recommended to patient that she comply with CPAP. Additional information is needed from collaterals: father and [facility]. - Factors that would help patient function - in a less restrictive setting. Factors: Cleared mental status changes (confusion, speech, gait). Absence of mood disturbance.
[2017-03-30 15:43] VITALS: BP 116/73
[2017-03-30 19:53] VITALS: BP 125/80
[2017-03-31 08:05] VITALS: BP 134/77
--- NOTE | 2017-03-31 11:58 | CP SOUTH PROGRESS NOTE PSYCH ---
Psych (Inpt) Progress Note Progress Note Include the following elements, when applicable: Involvement in the active treatment of the patient with behavioral observations of the patient and the patient's response to the treatment. Review of the ongoing treatment process in the context of the treatment plan. Indication of how multi-disciplinary staff members are carrying out the treatment plan. Plans for future interventions and recommendations for revision of the treatment plan. Liaison with other physicians/providers. Progress Note: Case and treatment plan discussed in team meeting. Staff reports that the patient has periods in which her thinking seems clear and other times not. Mumbles and slurs her speech. Denying feeling depressed or suicidal. Patient seen at 10:23 a.m. Was in group prior to my meeting with her. Continues to use walker. Reports she fell next to her bed this morning but was not injured. Speech is slurred, and patient thinks that her speech is worse. She thinks someone took some of her food at breakfast. Affect is calm and euthymic. Mood is "good, pretty good." Sad 10/03. Anxiety 07/04. Denies feeling hopeless or worthless. Feels helpless and feels guilty "sometimes because people help me more than I help them." Denies SI and HI. Reports AH "like [employer] Feud." Reports she had VH when she woke up last night to use the BR, of "somebody that has strange ideas like me." Denies PI. Thinking remains disorganized. Sleep: good except up to BR x 1. Appetite: still not that great. Energy: low. IMPRESSION: Slow progress. Continue with mental status changes. Not focal. Likely toxic/ metabolic. Will reduce anticholinergic, Cogentin, to 0.5 mg b.i.d. Additional information is needed from Rose Rangel APRN (once we have a REECE). Continues to require inpatient LOC. Monitor response to reductions in olanzapine, WB and Cogentin. We will check B12, folate, Mg and re-check lithium level on Monday morning.
[2017-03-31 12:08] VITALS: BP 143/97
--- NOTE | 2017-03-31 14:17 | SOCIAL WORKER PROG NOTE PSYCH ---
Social Work Progress Note Progress Note 10:20am This business writer spoke with Kanika at [facility] ([phone]) regarding the crisis note to call customer service. Kanika stated that there were no records found regarding this patient. This business writer spoke with Alex Ramos at [facility] regarding the note who did not believe that an auth was needed. 10:37am This business writer met with patient. Patient was spontaneous, engaged and pleasant during this meeting. She reported that she felt that she had been "going downhill" since , 03/23/18, ultimately leading to current admission. Patient was unable to explain further other than to identify a worsening of depression. Patient denied SI/HI/AH/VH. She stated that she would like to return to [facility] after hospital admission and attend outpatient groups. Patient signed REECE for [facility] and her father. She was agreeable to scheduling a family meeting. This business writer spoke with the patient's father, Bert Drake, by phone and a family meeting was scheduled for 04/03/17 at 10:30am. Mr. Drake stated that he plans to visit the patient this afternoon during visiting hours.
[2017-03-31 16:27] VITALS: BP 144/78
[2017-03-31 19:49] VITALS: BP 111/73
[2017-04-01 07:53] VITALS: BP 108/68
--- NOTE | 2017-04-01 11:35 | CP SOUTH PROGRESS NOTE PSYCH ---
Psych (Inpt) Progress Note Progress Note Include the following elements, when applicable: Involvement in the active treatment of the patient with behavioral observations of the patient and the patient's response to the treatment. Review of the ongoing treatment process in the context of the treatment plan. Indication of how multi-disciplinary staff members are carrying out the treatment plan. Plans for future interventions and recommendations for revision of the treatment plan. Liaison with other physicians/providers. Progress Note: Chart reviewed. Progress discussed with nursing staff. Interviewed patient this morning. Patient reports feeling tired and "dizzy". I asked her when she feels dizzy and she says "when I'm tired". She reports down mood but denies SI/HI. Denies medication concerns or AVH. Vitals and labs reviewed. Findings are: vitals wnl. No new labs Mental status exam: Appearance: disheveled overweight CF resting in bed Behavior: sluggish, +pmotor retardation Speech: slow, quiet, mumbled Mood: "down" Affect: constricted, non-labile, congruent Thought process: impoverished Thought content: denies SI/HI Perceptual disturbances: denies Cognition: alert though difficult to engage in cognitive exam Insight: limited Judgement: limited Assessment and plan: Confusion seems to slowly be improving with medication changes. Will continue current management as per primary team.
[2017-04-01 12:10] VITALS: BP 128/75
[2017-04-01 15:30] VITALS: BP 114/67
[2017-04-01 19:50] VITALS: BP 104/58
[2017-04-02 07:49] VITALS: BP 110/56
--- NOTE | 2017-04-02 11:07 | CP SOUTH PROGRESS NOTE PSYCH ---
Psych (Inpt) Progress Note Progress Note Include the following elements, when applicable: Involvement in the active treatment of the patient with behavioral observations of the patient and the patient's response to the treatment. Review of the ongoing treatment process in the context of the treatment plan. Indication of how multi-disciplinary staff members are carrying out the treatment plan. Plans for future interventions and recommendations for revision of the treatment plan. Liaison with other physicians/providers. Progress Note: Chart reviewed. Progress discussed with nursing staff. Interviewed patient this morning. Patient reports feeling depressed this morning, rates her mood as 3 out of 10, identifies a precipitant being the lack of others in her life coming to visit her. She denies however any suicidal or homicidal ideation. Denies any AVH. Denies any confusion, was alert, oriented to name, place, and March, however did not know today's date. Did know today was Monday. Vitals and labs reviewed. Findings are: vitals wnl. No new labs Mental status exam: Appearance: disheveled overweight CF resting in bed Behavior: sluggish, +pmotor retardation Speech: slow, quiet, mumbled Mood: "Depressed today" Affect: constricted, non-labile, congruent Thought process: impoverished Thought content: denies SI/HI Perceptual disturbances: denies Cognition: See above Insight: limited Judgement: limited Assessment and plan: Confusion seems to continue to slowly improve with medication changes. Will continue current management as per primary team.
[2017-04-02 11:51] VITALS: BP 126/76
[2017-04-02 15:26] VITALS: BP 131/66
[2017-04-02 20:14] VITALS: BP 100/65
[2017-04-03 07:57] VITALS: BP 121/77
[2017-04-03 08:00] LABS: LITHIUM 1.1 mmol/L (0.6-1.2)
[2017-04-03 12:19] VITALS: BP 120/78
--- NOTE | 2017-04-03 13:21 | CP SOUTH PROGRESS NOTE PSYCH ---
Psych (Inpt) Progress Note Progress Note Include the following elements, when applicable: Involvement in the active treatment of the patient with behavioral observations of the patient and the patient's response to the treatment. Review of the ongoing treatment process in the context of the treatment plan. Indication of how multi-disciplinary staff members are carrying out the treatment plan. Plans for future interventions and recommendations for revision of the treatment plan. Liaison with other physicians/providers. Progress Note: Dr. Conner's notes reviewed. Case and treatment plan discussed in team meeting. Staff reports there will be a family meeting with patient's father at 10:30 a.m. [place] level this morning is 1.1. We will reduce lithium to 600 mg b.i.d. Staff reports that the patient appears sad and distracted. We anticipate discharge on Monday. Patient seen at 10:20 AM. The patient was in group prior to my meeting with her. Feels a little groggy. Reports she had middle of the night awakenings 4-6 times to use the bathroom because she has been drinking a lot of fluids. Appears awake and alert. Otherwise feels okay. Reports she is getting to meet some people. She feels her speech is still slurred but objectively it seems improved. Reports that this morning she tripped on her sock and stumbled but denies injury. Anticipates family meeting at 10:30 AM. Mood is okay. Rates sad mood and anxiety both 7/10. Denies feeling hopeless or helpless. Feels worthless. Feels guilty sometimes. Denies suicidal and homicidal ideation. Denies auditory and visual hallucinations and paranoid ideation. Reports appetite as not hungry; states she is not always finishing meals. Rates energy 4/10 with 10 being best. Tolerating medications but reports lithium taste bitter and chalky. I informed her that we will are reducing lithium to 600 mg b.i.d and discontinuing Cogentin. Patient reports she cried when the weekend started because she has not been feeling in control in terms of food choices and groups to go to. Patient is in agreement with plan for discharge tomorrow. I joined family meeting with patient, father and social media senior associate. Father reports that the patient's head has been slumped. He feels she is pretty much herself now. Reports she has been slurring her speech for a year and he reports that her speech is better now. Father reports she was falling for 3-5 weeks prior to admission. IMPRESSION: Slow progress. Continue present treatment plan. Monitor response to medication changes noted above. Discharge is planned for tomorrow to home with follow-up care.
--- NOTE | 2017-04-03 13:51 | IP INCIDENTAL NOTE PSYCH ---
Incidental Note Notation: Case d/w Rose Rangel APRN.
[2017-04-03 16:03] VITALS: BP 112/76
--- NOTE | 2017-04-03 16:18 | SOCIAL WORKER PROG NOTE PSYCH ---
Social Work Progress Note Progress Note 10:30am Dr. Baires and this caption writer met with the patient and her father. Patient's father observed overall improvement with the patient and her symptoms since admission, however, commented on her slurred speech. He also expressed concerns about the patient's fall risk upon returning home; he acknowledged improvement with her stability especially commenting on that she did not use her walker to walk from her room to the conference room (on [place]). Patient stated that she has been unable to utilize visiting nurse services through insurance and had paid $212 out of pocket in the past. She stated that she no longer is able to afford this. Patient's father discussed supportive measures that he has offered his daughter, but feels that she could benefit from more services beyond what he is able to offer. Patient stated that she would like to return to [facility] and attend "as many services as possible." Patient's father expressed interest in increased communication between himself and [facility] and will try to attend an appointment with [facility] and the patient. Medication questions and concerns were addressed by Dr. Baires. Possible discharge was identified for tomorrow, 04/04/17. 11:31am This caption writer contacted Geni Olguin at [facility] and submitted a referral. She was informed of the patient being unable to obtain a visiting nurse for medication administration in interest of any resources and/or information regarding this. She provided this caption writer with the following information specific to [facility]: -Medicare will not cover medication administration. For services such as having a VNA licensed clinical social worker, in home PT/OT, etc., the provider would need to obtain an authorization and the visiting nurse would need to complete an intake to determine eligibility. 12:45pm This caption writer returned call from Zeenat at [facility] ([phone], ext. [phone]) and left with call back number. 5:24pm A message was left for Danna Sanabria in interest of any resources that may be available to the patient.
[2017-04-03 19:58] VITALS: BP 102/68
[2017-04-04 08:03] VITALS: BP 118/72
[2017-04-04] MEDS ORDERED: FLUTICASONE PRO16 GM NAS (11:53)
[2017-04-04] MEDS ORDERED: MIRALAX119 GM PO (11:53)
[2017-04-04] MEDS ORDERED: LITHIUM CARBON300 M4 PO (11:53)
[2017-04-04] MEDS ORDERED: VENTOLIN HFA18 GM INH (11:53)
[2017-04-04] MEDS ORDERED: OLANZAPINE10 M1 PO (11:53)
[2017-04-04] MEDS ORDERED: WELLBUTRIN SR100 M2 PO (11:53)
--- NOTE | 2017-04-04 12:00 | Patient Discharge Instructions ---
Psych Discharge Inst General Discharge Information Reason for Admission: Confusion. Reported tipping over and change in speech. Patient prsented to the ER on 03/29/17 after presenting to [facility] without an appointment, looking to have a lithium level drawn. She was confused about which [facility] to report to for phlebotomy. Psy Discharge Primary Diag+ Schizoaffective disorder, bipolar type Psy Discharge Secondary Diag+ Morbid obesity COSA Hyperlipidemia Hypothyroidism GERD Asthma/allergies Summary Tests/Major Procedures Lab BUN 11 mg/dL 03/29/17 1242 Chloride 108 mmol/L H 03/29/17 1242 Cholesterol 241 MG/DL H 03/29/17 1242 Cholesterol/HDL Ratio 8 % H 03/29/17 1242 Creatinine 0.9 mg/dL 03/29/17 1242 Folate 9.0 ng/mL 04/03/17 0615 Glucose 135 mg/dL H 03/29/17 1242 HDL Cholesterol 29 mg/dL L 03/29/17 1242 Hemoglobin A1c 5.7 % 03/29/17 1242 LDL Cholesterol, Calc 149 mg/dL H 03/29/17 1242 Magnesium 2.3 mg/dL 04/03/17 0615 TSH &T3 &Free T4 Intrp 0.505 uIU/mL 03/29/17 1242 Triglycerides 316 mg/dL H 03/29/17 1242 Vitamin B12 683 pg/mL 04/03/17 0615 Gran % 77.5 % H 03/29/17 1242 Hct 44.1 % 03/29/17 1242 Hgb 14.6 G/DL 03/29/17 1242 Lymphocytes % 15.5 % L 03/29/17 1242 Plt Count 268 /CUMM 03/29/17 1242 WBC 7.8 /CUMM 03/29/17 1242 [place] 0.7 mmol/L 03/29/17 1242 [place] 1.1 mmol/L 04/03/17 0615 Serum Alcohol < 10.0 MG/DL 03/29/17 1242 Ur Leukocyte Esterase NEG 04/03/17 1429 Urine Ketones TRACE H 04/03/17 1429 EKG 03/30/17 showed sinus rhythm @ 87, slightly improved since previous tracing, normal EKG, QT 360, QTc 433. Studies Pending at NH: None. Patient Instructions Contact Information Your Psychiatrist on [facility] was Laz Baires MD * If you are experiencing an emergency related to this hospitalization, please call [phone] to contact the treating psychiatrist or the psychiatrist-on- call. * To Request a copy of your medical records, please contact the Medical Records Department at [phone]. * To request results of studies pending at the time of discharge, please call [phone]. * Continue your Medications until directed to stop by your Healthcare provider. General Medication Information Please continue to take your new medications and your continued home medications , unless otherwise indicated on your discharge medication list, or unless directed by your MD or [employer] to stop them. Special Instructions Diet Diabetic (and heart healthy) Activity As Tolerated (Watch for gait disturbance.) Other Inst/Recommendations Please see PCP for medical problems and abnormal labs listed above. - Tobacco Use Treatment Offered Post DC Medications Offered: Not Applicable Post DC Tobacco Treatment Plan: Not Applicable - EtOH/Drug Use D/O Treatment Offered Post DC Medications Offered: NA-No EtOH/Drug Use D/O Post DC EtOH/SubAbuse [place] Plan: NA-No EtOH/Drug Use D/O Metabolic Screening () Not Applicable, patient not on a neuroleptic. OR () Patient on a neuroleptic(s) . Enter below results for Hemoglobin A1C, and lipid panel if obtained during the last 365 days. BMI: 39.300 Blood Pressure: 118/72 Laboratory Results From [facility] (If applicable): Please see lab section above. Advance Directives Does the Patient have Medical Advance Directives No/Refused further info Does Pt have Psychiatric Advance Directives? No/Refused further info Does Patient have a Designated Surrogate Decision Maker: No Information About Psychiatric Advance Directives Provided? Refused Discharge Plan Post Hospital Treatment Plan: Post Discharge Referrals Provider Referral Service Date: 04/05/17 Referred To: [[facility]] Notes: [facility] [address], [place] [phone] Appointment: 04/05/17 at 3:30pm with Elsie Villalta LCSW Patient will discuss interest in outpatient groups with Elsie Villalta Provider Referral Service Date: 04/12/17 Referred To: [[facility]] Notes: [facility] [address], [place] [phone] Appointment: 04/12/17 at 3:30pm with Kinza Mathis APRN Provider Referral Referred To: [[facility]] Notes: [facility] [address] [facility], [place] [phone] Patient will follow up with Magaly housing case manager, for an appointment
[2017-04-04 12:19] VITALS: BP 126/72
--- NOTE | 2017-04-04 16:23 | CP SOUTH PROGRESS NOTE PSYCH ---
Psych (Inpt) Progress Note Progress Note Include the following elements, when applicable: Involvement in the active treatment of the patient with behavioral observations of the patient and the patient's response to the treatment. Review of the ongoing treatment process in the context of the treatment plan. Indication of how multi-disciplinary staff members are carrying out the treatment plan. Plans for future interventions and recommendations for revision of the treatment plan. Liaison with other physicians/providers. Progress Note: Case and treatment plan discussed in team meeting. Staff reports that the patient is denying suicidal ideation. In good spirits. Appeared sedated this morning. No longer needing or using walker. No longer slurring her speech. Patient seen at 12:44 PM. Her gait has improved. States she still kind of stumbles. Reports her speech problem comes and go but I did not hear any slurring. Reports feeling well. Affect is calm and euthymic. Mood is up, good. Rates sad mood 3/10 and anxiety 6/10. Denies feeling hopeless, helpless or worthless. Feels guilty for depending on other people to straighten out her life. Denies active and passive suicidal ideation. Denies homicidal ideation. Denies auditory hallucinations. Reports last night she had visual hallucinations in the background (vague). Denies visual hallucinations now. Denies paranoid ideation and magical prajapati. Oriented [address] as [facility] intensive outpatient program. Reports sleep is good with CPAP. Appetite: reports she ordered less food on purpose. Energy: reports she does not have all that much energy in the morning and at night, but in-between, she's fine. Tolerating medications well, without complaint. Feels ready and safe for discharge. Patient is noted to have some medial right eye conjunctivitis or subconjunctival hemorrhage. I advised her to follow-up with her PCP about this. IMPRESSION: Condition improved. Okay for discharge today to home with follow-up at [facility].
--- NOTE | 2017-04-04 16:50 | DISCHARGE SUMMARY REPORT-PSYCH ---
Visit Information Visit Dates/Diagnosis' Admission Date: 03/30/17 Discharge Date: 04/04/17 Reason for Admission: Confusion. Reported tipping over and change in speech. Patient prsented to the ER on 03/29/17 after presenting to [facility] without an appointment, looking to have a lithium level drawn. She [facility] which [facility]. Psy Discharge Primary Diag: Schizoaffective disorder, bipolar type Psy Discharge Secondary Diag: Morbid obesity COSA Hyperlipidemia Hypothyroidism GERD Asthma/allergies Hospital Course Significant Lab Findings: Lab BUN 11 mg/dL 03/29/17 1242 Chloride 108 mmol/L H 03/29/17 1242 Cholesterol 241 MG/DL H 03/29/17 1242 Cholesterol/HDL Ratio 8 % H 03/29/17 1242 Creatinine 0.9 mg/dL 03/29/17 1242 Folate 9.0 ng/mL 04/03/17 0615 Glucose 135 mg/dL H 03/29/17 1242 HDL Cholesterol 29 mg/dL L 03/29/17 1242 Hemoglobin A1c 5.7 % 03/29/17 1242 LDL Cholesterol, Calc 149 mg/dL H 03/29/17 1242 Magnesium 2.3 mg/dL 04/03/17 0615 TSH &T3 &Free T4 Intrp 0.505 uIU/mL 03/29/17 1242 Triglycerides 316 mg/dL H 03/29/17 1242 Vitamin B12 683 pg/mL 04/03/17 0615 Gran % 77.5 % H 03/29/17 1242 Hct 44.1 % 03/29/17 1242 Hgb 14.6 G/DL 03/29/17 1242 Lymphocytes % 15.5 % L 03/29/17 1242 Plt Count 268 /CUMM 03/29/17 1242 WBC 7.8 /CUMM 03/29/17 1242 [place] 0.7 mmol/L 03/29/17 1242 [place] 1.1 mmol/L 04/03/17 0615 Serum Alcohol < 10.0 MG/DL 03/29/17 1242 Ur Leukocyte Esterase NEG 04/03/17 1429 Urine Ketones TRACE H 04/03/17 1429 EKG 03/30/17 showed sinus rhythm @ 87, slightly improved since previous tracing, normal EKG, QT 360, QTc 433. Course Complications: None. Consultations: The patient was seen by Dr. Piedra for admission H&P. She noted: "Assessment/Plan 51-year-old female past medical history of diabetes, hypertension, obesity, hypothyroidism and hyperlipidemia was here with depressive symptoms. Psychiatry to reevaluate the med regimen given the feeling of sluggishness and slurred speech and lethargy that she is complaining of. Restart her metformin and her statin and her levothyroxine. Diabetic diet with fingersticks twice a day. Start MiraLAX for constipation. And follow closely. Problem List: 1. Hyperlipidemia 2. Hypothyroid" Allergies: Coded Allergies: lamotrigine (From Lamictal) (Severe, RASH 12/24/15) shrimp (Severe, ANAPHYLAXIS 12/24/15) Fish Containing Products (ANAPHYLAXIS 11/24/16) divalproex sodium (From DEPAKOTE) (vomiting 12/25/15) telithromycin (VOMITING AND DIARRHEA 12/24/15) tetracycline (RASH ON HEAD, SCALP GETS REALLY DRY 12/24/15) topiramate (From TOPAMAX) (PER PT REPORTS HAS SIDE EFFECTS UNKNOWN 11/24/16) haloperidol (CATATONIC/DISTONIC 12/30/15 12/30/15) levofloxacin (SEVERE DIARRHEA 12/24/15) oxycodone (VOMITING 12/24/15) Hospital Course/TX Response: The patient was monitored on the unit for ataxia, slurred speech, mood disturbance and psychosis. She participated in multi-modal treatments on the unit. Zyprexa, Wellbutrin and lithium doses were decreased. Cogentin was tapered to off. Ataxia and slurred speech have cleared. Mood has improved from hypomanic to euthymic. Mild psychotic symptoms persist. Progress note from date of discharge, 04/04/17: Case and treatment plan discussed in team meeting. Staff reports that the patient is denying suicidal ideation. In good spirits. Appeared sedated this morning. No longer needing or using walker. No longer slurring her speech. Patient seen at 12:44 PM. Her gait has improved. States she still kind of stumbles. Reports her speech problem comes and go but I did not hear any slurring. Reports feeling well. Affect is calm and euthymic. Mood is up, good. Rates sad mood 3/10 and anxiety 6/10. Denies feeling hopeless, helpless or worthless. Feels guilty for depending on other people to straighten out her life. Denies active and passive suicidal ideation. Denies homicidal ideation. Denies auditory hallucinations. Reports last night she had visual hallucinations in the background (vague). Denies visual hallucinations now. Denies paranoid ideation and magical prajapati. Oriented [address] as [facility] intensive outpatient program. Reports sleep is good with CPAP. Appetite: reports she ordered less food on purpose. Energy: reports she does not have all that much energy in the morning and at night, but in-between, she's fine. Tolerating medications well, without complaint. Feels ready and safe for discharge. Patient is noted to have some medial right eye conjunctivitis or subconjunctival hemorrhage. I advised her to follow-up with her PCP about this. IMPRESSION: Condition improved. Okay for discharge today to home with follow-up at [facility]. Discharge HBIPS - Tobacco Use Treatment Offered Post DC Medications Offered: Not Applicable Post DC Tobacco Treatment Plan: Not Applicable - EtOH/Drug Use D/O Treatment Offered Post DC Medications Offered: NA-No EtOH/Drug Use D/O Post DC EtOH/SubAbuse TX Plan: NA-No EtOH/Drug Use D/O Metabolic Screening - Screen if on a Neuroleptic Medication - Metabolic screening should include: - Blood Pressure, BMI, Glucose or Hgb A1c, & a - Lipid profile from within the past 365 days. Metabolic Screening () Not Applicable, patient not on a neuroleptic. OR () Patient on a neuroleptic(s) . Enter below results for Hemoglobin A1C, and lipid panel if obtained during the last 365 days. BMI: 39.300 Blood Pressure: 126/72 Laboratory Results From [facility] (If applicable): [x] Lab Cholesterol 241 MG/DL H 03/29/17 1242 Cholesterol/HDL Ratio 8 % H 03/29/17 1242 HDL Cholesterol 29 mg/dL L 03/29/17 1242 Hemoglobin A1c 5.7 % 03/29/17 1242 LDL Cholesterol, Calc 149 mg/dL H 03/29/17 1242 Triglycerides 316 mg/dL H 03/29/17 1242 Discharge Instructions General Discharge Information Multiple Neuroleptics: ([x]) Not Applicable OR Document below three failed attempts at monotherapy, or a plan to taper to monotherapy, or augmentation of Clozapine. () Discharge Diet Diabetic (and heart healthy) Discharge Activity As Tolerated (Watch for gait disturbance.) DC Disposition: Returning to home. Referrals Ordered Referrals Provider Referral 04/05/17 For Groups: [[facility]] [address], [place] [phone] Appointment: 04/05/17 at 3:30pm with Elsie Villalta LCSW Patient will discuss interest in outpatient groups with Elsie Villalta Provider Referral 04/12/17 For Groups: [[facility]] [address], [place] [phone] Appointment: 04/12/17 at 3:30pm with Kinza Mathis APRN Provider Referral For Groups: [[facility]] [address], [place] [phone] Patient will follow up with Magaly piano case maker, for an appointment Prescriptions Stop taking the following medications: Morganza Carbonate (Morganza Carbonate) 300 MG CAPSULE ORAL 1999 Qty = 14 Morganza Carbonate (Morganza Carbonate) 300 MG CAPSULE ORAL DAILY @8 AM Qty = 14 Bupropion HCl (Bupropion XL) 150 MG TAB.ER.24H ORAL Every Morning Benztropine Mesylate (Benztropine Mesylate) 1 MG TABLET ORAL TWICE DAILY Qty = 60 Olanzapine (Olanzapine) 15 MG TABLET ORAL Every night Continue taking these medications: Pravastatin Sodium (Pravastatin Sodium) 40 MG TABLET 1 Tablet ORAL DAILY Qty = 90 Comments: Last Taken:04/03/17 Time:1600 Montelukast Sodium (Montelukast Sodium) 10 MG TABLET 10 Milligram ORAL DAILY Qty = 14 Comments: Last Taken:04/04/17 Time:0900 Famotidine (Famotidine) 20 MG TABLET 20 Milligram ORAL TWICE DAILY Qty = 28 Comments: Last Taken:04/04/17 Time:0900 Metformin HCl (Metformin HCl) 500 MG TABLET 1 Tablet ORAL TWICE DAILY Qty = 30 Comments: Last Taken:04/04/17 Time:0900 Levothyroxine Sodium (Levothyroxine Sodium) 100 MCG TABLET 1 Tablet ORAL DAILY BEFORE BREAKFAST Qty = 90 Comments: Last Taken:04/04/17 Time:0600 Start taking the following new medications: Albuterol Sulfate (Ventolin Hfa) 90 MCG HFA.AER.AD 2 Puff Inhale through mouth EVERY SIX HOURS NEEDED as needed for asthma Qty = 1 No Refills Comments: Last Taken:03/31/17 Time:1400 Bupropion HCl (Wellbutrin Sr) 100 MG TABLET.ER 100 Milligram ORAL DAILY @8 AM Qty = 14 No Refills Comments: Last Taken:04/04/17 Time:0900 Olanzapine (Olanzapine) 10 MG TABLET 10 Milligram ORAL Every night Qty = 14 No Refills Comments: Last Taken:04/03/17 Time:2200 Fluticasone Propionate (Fluticasone Propionate) 50 MCG/ACTUATION SPRAY.SUSP 2 [place] In the nose DAILY as needed for allergic sinusitis Qty = 1 No Refills Comments: Last Taken:NOT USED IN THE HOSPITAL Time: Polyethylene Glycol 3350 (Miralax) 17 GRAM/DOSE POWDER 17 Gram ORAL DAILY Qty = 1 No Refills Comments: Last Taken:04/04/17 Time:0900 Morganza Carbonate (Morganza Carbonate) 300 MG CAPSULE 2 Capsule ORAL TWICE DAILY Qty = 56 No Refills Comments: Last Taken:04/04/17 Time:0900 Other Inst/Recommendations Please see PCP for medical problems and abnormal labs listed above. Copies To: Shaina Rangel APRN
--- NOTE | 2017-04-04 19:00 | SOCIAL WORKER PROG NOTE PSYCH ---
Social Work Progress Note Progress Note This insurance writer spoke with Zeenat at [facility] regarding appointments. The following were scheduled: -Elsie Villalta LCSW on 04/05/17 at 3:30pm -Kinza Mathis APRN on 04/12/17 at 12:30pm -urszula Doyle management, 04/05/17 at 9am (appointment was not added to the discharge papers prior to printing; patient was informed of this appointment , which she accepted) Per Zeenat, patient can discuss outpatient groups as well as family counseling with Elsie. Zeenat was informed of the patient of her and her father's interest for him to be more included in treatment. Zeenat stated that the patient could discuss this further with Elsie when they meet on 04/05/17; she would also inform Elsie of this request. This insurance writer was transferred to Magaly Lee's voicemail, who returned the voicemail later in the afternoon to schedule the appointment. Magaly stated that she would, at patient's request, arrange to schedule an appointment with a manager customs the patient had seen in the past. Magaly and Zeenat were also informed of unsuccessful attempt to schedule a visiting nurse (due to insurance - see note below). This insurance writer met with the patient. She stated that she was sad to leave as she felt that she had made friends with some patients during this admission. However, she felt ready to discharge and looked forward to returning to [facility]. [facility] appointments were reviewed with the patient, which she accepted. She expressed interest in returning to an outpatient group that meets on Fridays and will discuss this further with Elsie. Patient denied SI/HI. She stated that she occassionally sees shadows, but does not find them stressful and has discussed this with her providers. She denied any command hallicinations and denied AH/VH at the time of this discussion and during her inpatient admission. Patient identified a safety plan to "call the police and get in touch with [facility]." She was also informed of the crisis numbers and warm lines she will be provided upon discharge. Patient stated that her father will provide transportation home from the hospital today. 11:22am This insurance writer spoke with [facility] who stated that visiting nurse services would not be covered by the patient's insurance. Patient was informed of this and stated that she would speak with her case therapist should she choose to obtain a visiting nurse and pay out of pocket. Faxed Referral(s) Referred To: [facility] Documents sent: Health Summary Faxed to: arleth [facility] Fax #: [phone] Faxed by: Dima Bell LCSW Date faxed: 04/04/17 Time Faxed: [phone]
== END 2017-04-04 15:51 | DRG 885 ==
LOC: ERH 12:04 → ENRESERV 03-30 08:46 → ERHI 03-30 08:50 → CP SOUTH 03-30 08:50 → ENTRNSPT 03-30 10:58 → EDTRNSPTSTS 03-30 11:02 → EDTRNSPT 03-30 11:02 → CP SOUTH 03-30 11:08 → EDTRNSPT 03-30 11:11 → CP SOUTH 03-30 11:14 → CMPTRNSPT 03-30 11:32 → CP SOUTH 03-30 11:56
PROVIDERS: Emergency Medicine; Psychiatry & Neurology Psychiatry
DX: F25.0 Schizoaffective disorder, bipolar type (principal); E66.01 Morbid (severe) obesity due to excess calories; E78.5 Hyperlipidemia, unspecified; K21.9 Gastro-esophageal reflux disease without esophagitis; J45.909 Unspecified asthma, uncomplicated; G47.33 Obstructive sleep apnea (adult) (pediatric)
CPT/HCPCS: 36415; 80307; 81001; 81003; 81025; 93005; 93010; G0480; J3490

== ENCOUNTER 2017-06-03 17:46 | Emergency (ER) | payer OTHER, MEDICARE ==
[~2017-06-03] VITALS: Ht 170.2 cm; Wt 119.7 kg
[~2017-06-03 17:46] MED LIST changes: +MECLIZINE HCL12.5 M1 PO; +OLANZAPINE10 M1 PO; +VENTOLIN HFA18 GM INH
[2017-06-03 17:52] VITALS: BP 125/78
[2017-06-03 18:17] LABS: ABSOLUTE BASOPHIL COUNT 0.1 /CUMM (0.0-0.2); ABSOLUTE EOSINOPHIL COUNT 0 /CUMM (0.0-0.7); ABSOLUTE GRANULOCYTE CT 8.6 /CUMM (1.4-6.5); ABSOLUTE LYMPH COUNT 2.2 /CUMM (1.2-3.4); ABSOLUTE MONOCYTE COUNT 0.7 /CUMM (0.10-0.60); BASOPHIL % 0.8 % (0.0-2.0); EOSINOPHIL % 0.1 % (0-5); GRANULOCYTE % 73.9 % (42.2-75.2); HEMATOCRIT 38.5 % (37-47); MEAN CORPUSCULAR HGB 29.8 PG (27.0-31.0); MEAN CORPUSCULAR VOLUME 90.3 FL (81.0-99.0); MEAN PLATELET VOLUME 9.1 FL (7.4-10.4); PLATELET COUNT 316 /CUMM (130-400); RBC DISTRIBUTION WIDTH 14.1 % (11.5-14.5); RED BLOOD CELL CT 4.26 /CUMM (4.20-5.40); WHITE BLOOD CELL COUNT 11.7 /CUMM (4.8-10.8)
--- NOTE | 2017-06-03 19:31 | ED GI/GU/ABDOMINAL COMPLAINT ---
History of Present Illness General Chief Complaint: Abdominal Pain/Flank Pain Stated Complaint: SENT IN BY OBGYN FOR CRAMPING Source: patient Exam Limitations: no limitations Vital Signs & Intake/Output Vital Signs & Intake/Output Vital Signs Date Time Temp Pulse Resp B/P B/P Pulse O2 O2 Flow FiO2 Mean Ox Delivery Rate 06/03 1752 97.4 77 15 125/78 96 Room Air Room Air Allergies Coded Allergies: lamotrigine (From Lamictal) (Severe, RASH 06/03/17) shrimp (Severe, ANAPHYLAXIS 06/03/17) Fish Containing Products (ANAPHYLAXIS 06/03/17) divalproex sodium (From DEPAKOTE) (vomiting 06/03/17) telithromycin (VOMITING AND DIARRHEA 06/03/17) tetracycline (RASH ON HEAD, SCALP GETS REALLY DRY 06/03/17) topiramate (From TOPAMAX) (PER PT REPORTS HAS SIDE EFFECTS UNKNOWN 06/03/17) haloperidol (CATATONIC/DISTONIC 12/30/15 06/03/17) levofloxacin (SEVERE DIARRHEA 06/03/17) oxycodone (VOMITING 06/03/17) Reconcile Medications Albuterol Sulfate (Ventolin Hfa) 90 MCG HFA.AER.AD 2 PUF INH Q6P PRN asthma Bupropion HCl (Wellbutrin Sr) 100 MG TABLET.ER 100 MG PO 0800 depression Famotidine 20 MG TABLET 20 MG PO BID ACID REFLUX Fluticasone Propionate 50 MCG/ACTUATION SPRAY.SUSP 2 SPRAY FLORENCIO DAILY PRN allergic sinusitis Levothyroxine Sodium 100 MCG TABLET 1 TAB PO DAILY AC THYROID (Reported) [place] Carbonate 300 MG CAPSULE 2 CAP PO BID mood stabilizer Meclizine HCl 12.5 MG TABLET 1 TAB PO TID PRN DIZZINESS Metformin HCl 500 MG TABLET 1 TAB PO BID DM (Reported) Montelukast Sodium 10 MG TABLET 10 MG PO DAILY ASTHMA Olanzapine 10 MG TABLET 10 MG PO QPM psychosis Polyethylene Glycol 3350 (Miralax) 17 GRAM/DOSE POWDER 17 GM PO DAILY to prevent constipation Pravastatin Sodium 40 MG TABLET 1 TAB PO DAILY CHOLESTEROL (Reported) Triage Note: PT TO ED FOR C/C OF R SIDED ABD CRAMPING SINCE LAST MONDAY WITH ONE EPISODE OF "BLACK VOMIT IT LOOKED LIKE COFFEE AND ONE EPISODE OF DIARRHEA." CALLED OBGYN AND ADVISED TO COME TO ED. Triage Nurses Notes Reviewed? yes ? n Is pt currently ? No Onset: Gradual Duration: hour(s): Timing: recent history Quality/Severity: moderate Location: lower abdomen HPI: 52yo female with hx of asthma, bipolar disorder presents to ED complaining of lower abdominal pain beginning last night. Patient states that 6 days ago she had episodes of black vomiting, diarrhea however the symptoms resolved the following day. At that time the patient had some lower abdominal pain which resolved 5 days ago. Patient states that she currently has abdominal pain worsening since last night however has no nausea or vomiting or diarrhea currently. Patient called her VENDOR RELATIONSHIP MANAGER and it was recommended she come here to the emergency department for further evaluation. Patient is to recent irregular periods, her next appointment with her VENDOR RELATIONSHIP MANAGER is 06/21/17. The patient denies urinary symptoms, fevers, chills. (Nadja Nicole) Past History Travel History Traveled to [place] past 21 day No Medical History Any Pertinent Medical History? see below for history Neurological: NONE EENT: allergies, rhinitis, sinusitis, LARYNGEAL CYSTS Cardiovascular: hyperlipidemia Respiratory: asthma, bronchitis, obstructive sleep apnea, allergies Gastrointestinal: GERD Hepatic: NONE Renal: NONE Musculoskeletal: NONE Psychiatric: anxiety, bipolar disease, depression, insomnia, schizo affective disorder (depressed, with suicidality) Endocrine: hypothyroidism, obesity, diet controlled diabetes Blood Disorders: NONE Cancer(s): NONE VEHICLE DAMAGE APPRAISER/Reproductive: NONE Other Medical Hx: low pneumonia titers History of MRSA: No History of VRE: No History of CDIFF: No Tetanus Vaccine: 09/09/16 Surgical History Surgical History: LAPBAND done in 2005 Lapband reversal done in 04/28 failure lap band take down reversal of lapband 2014 Psychosocial History Who do you live with Patient/Self Services at Home None What is your primary language Albanian Tobacco Use: Never used ETOH Use: denies use Illicit Drug Use: denies illicit drug use Family History Family History, If Any: Parents (Hypertension). FATHER (Diabetes). Hx Contributory? No (Nadja Nicole) Review of Systems Review of Systems Constitutional: Reports: no symptoms. EENTM: Reports: no symptoms. Respiratory: Reports: no symptoms. Cardiovascular: Reports: no symptoms. GI: Reports: see HPI. Genitourinary: Reports: see HPI. Musculoskeletal: Reports: no symptoms. Skin: Reports: no symptoms. Neurological/Psychological: Reports: no symptoms. Hematologic/Endocrine: Reports: no symptoms. Immunologic/Allergic: Reports: no symptoms. All Other Systems: Reviewed and Negative (Zuri JENSEN,Nadja De La Fuente) Physical Exam Physical Exam General Appearance: well developed/nourished, no apparent distress, alert, awake , obese Head: atraumatic, normal appearance Eyes: Bilateral: normal appearance. Ears, Nose, Throat, Mouth: hearing grossly normal Neck: normal inspection, supple, full range of motion Respiratory: normal breath sounds, no respiratory distress, lungs clear Cardiovascular: regular rate/rhythm Gastrointestinal: normal bowel sounds, soft, tenderness through out abdominal exam without rebound or gaurding Back: normal inspection, normal range of motion Extremities: normal range of motion Neurologic/Psych: awake, alert, oriented x 3 Skin: intact, normal color, warm/dry Core Measures ACS in differential dx? No Sepsis Present: No Sepsis Focused Exam Completed? No (Zuri JENSEN,Nadja De La Fuente) Progress Differential Diagnosis: appendicitis, bowel obstruction, diverticulitis, endometritis, gastritis, hepatitis, hernia, inflamm bowel dis, intrauterine , kidney stone, ovarian cyst, SBO, UTI/pyelo Diagnostic Imaging: Viewed by Me: CT Scan. Discussed w/RAD: CT Scan. Radiology Impression: PATIENT: MARYLIN KEITH PRESENT AGE: 52 PATIENT ACCOUNT NO: [id number] : 67 LOCATION: [facility] ORDERING PHYSICIAN: Nadja JENSEN SERVICE DATE: 06/03/17 EXAM TYPE: CAT - CT ABD & PELVIS W IV CONTRAST EXAMINATION: CT ABDOMEN AND PELVIS WITH CONTRAST CLINICAL INFORMATION: Lower abdominal pain COMPARISON: 04/27/2016 CT scan TECHNIQUE: Multidetector volumetric imaging was performed of the abdomen and pelvis following IV administration of 95 mL of Optiray 320 intravenous contrast. Sagittal and coronal reformatted images were obtained on the technologist's workstation. DLP: 1461.09 mGy-cm FINDINGS: LUNG BASES: The visualized lung bases are unremarkable. LIVER, GALLBLADDER, AND BILIARY TREE: The liver is enlarged, measures about 25 cm in maximum CC diameter. There is mild diffuse decreased hepatic parenchymal density, suggestive of hepatic steatosis. No intrahepatic biliary ductal dilatation. The portal vein opacifies homogeneously. The gallbladder is unremarkable with no evidence of radiopaque gallstones, gallbladder wall thickening, or obvious pericholecystic inflammatory changes. PANCREAS: Unremarkable. SPLEEN: Unremarkable. ADRENAL GLANDS: Unremarkable. KIDNEYS AND URETERS: The kidneys are normal in size, shape, and attenuation. No hydronephrosis, hydroureter, or calculi seen. No perinephric stranding. BLADDER: Unremarkable. GASTROINTESTINAL TRACT: The small and large bowel are unremarkable. The appendix is visualized. The lumen of the appendix contains appendicolith. No CT evidence of acute appendicitis. ABDOMINAL WALL: No significant hernia is appreciated. LYMPH NODES: Normal. VASCULAR: Unremarkable. PELVIC VISCERA: The uterus is normal in size. There is a 3.6 cm hypodensity projecting over the posterior right side of the body of uterus. It could represent a prominent right ovary. Further characterization is limited based on this exam. No pelvic free fluid. OSSEOUS STRUCTURES: Unremarkable. IMPRESSION: Hepatomegaly and hepatic steatosis. No CT evidence of acute colitis or acute diverticulitis. A 3.5 cm hypodensity in the right adnexa, could represent a prominent ovary. Further pelvic ultrasound evaluation can be considered. DICTATED BY: Jackson Frye MD DATE/TIME DICTATED:06/03/172212 SWAGING MACHINE OPERATOR:MINNIE DATE/TIME TRANSCRIBED:06/03/172212 CONFIDENTIAL, DO NOT COPY WITHOUT APPROPRIATE AUTHORIZATION. <Electronically signed in Other Vendor System> SIGNED BY: Jackson Frye MD 06/03/172226 Initial ED EKG: none (Zuri JENSEN,Nadja De La Fuente) Plan of Care: Orders Procedure Date/time Status Add-on Test (ER Only) 06/03 2018 Active HUMAN BETA HCG SCREEN 06/04 1807 Complete URINALYSIS 06/04 1755 Complete COMPREHENSIVE METABOLIC PANEL 06/04 1755 Complete CBC WITHOUT DIFFERENTIAL 06/04 1755 Complete Laboratory Tests 06/03/174: Urine Color YEL, Urine Clarity HAZY H, Urine pH 6.0, Ur Specific [place] 1.010, Urine Protein NEG, Urine Ketones NEG, Urine Nitrite NEG, Urine Bilirubin NEG, Urine Urobilinogen 0.2, Ur Leukocyte Esterase MOD H, Ur Microscopic SEDIMENT EXAMINED, Urine WBC 10-15 H, Ur Epithelial Cells MANY H, Urine Bacteria MOD H , Urine Hemoglobin NEG, Urine Glucose NEG 06/03/171807: Anion Gap 11, Estimated GFR > 60, BUN/Creatinine Ratio 11.1, Glucose 103 H, Calcium 9.8, Total Bilirubin 0.3, AST 18, ALT 37, Alkaline Phosphatase 64, Total Protein 6.7, Albumin 4.0, Globulin 2.7, Albumin/Globulin Ratio 1.5, Total Beta HCG NEGATIVE, CBC w Diff NO MAN DIFF REQ, RBC 4.26, MCV 90.3, MCH 29.8, MCHC 33.0, RDW 14.1, MPV 9.1, Gran % 73.9, Lymphocytes % 19.1 L, Monocytes % 6.1, Eosinophils % 0.1, Basophils % 0.8, Absolute Granulocytes 8.6 H, Absolute Lymphocytes 2.2, Absolute Monocytes 0.7 H, Absolute Eosinophils 0, Absolute Basophils 0.1 Patient's labs show very mild leukocytosis, no other acute abnormality. UA is contaminated specimen, patient currently without urinary symptoms. CT scan shows prominent right ovary, old records reviewed, patient had transvaginal ultrasound earlier This year showing right ovarian cyst. Patient was unsure of this diagnosis however has an appointment with her VENDOR RELATIONSHIP MANAGER later this month. The patient is sitting comfortably, requesting food tray, vital signs are stable. There is a low suspicion for ovarian torsion at this time. Patient to follow-up with VENDOR RELATIONSHIP MANAGER as scheduled regarding her ovarian cyst and dysfunctional uterine bleeding, she is having no active vaginal bleeding at this time. Patient to take Tylenol for pain, she was offered prescription pain medication however declines, she states she does not want to another medication. The patient agrees with the plan of care. The patient was discussed with Dr. Fermin who agrees with this plan. (Zuri JENSEN,Nadja De La Fuente) (Jeny HOFFMAN,Kike Dillard) Departure Departure Disposition: HOME OR SELF CARE Condition: Stable Clinical Impression Primary Impression: Abdominal pain Qualifiers: Abdominal location: lower abdomen, unspecified Qualified Code: R10.30 - Lower abdominal pain, unspecified Secondary Impressions: Nausea vomiting and diarrhea Referrals: Galindo Tyler MD (PCP/Family) Additional Instructions: You may take Tylenol 500 mg every 6 hours as needed for pain. Follow-up with the VENDOR RELATIONSHIP MANAGER, keep your scheduled appointment. With any worsening symptoms or other concerns please return to the emergency department. Please note that there might be incidental findings in your evaluation that are unrelated to the current emergency department visit. Please notify your primary care doctor about this emergency department visit in order to obtain and review all of the testing performed so that these incidental findings can be monitored as needed. If you had an x-ray performed, please understand that some fractures may not be seen on the initial set of x-rays. If your symptoms persist you might need a repeat set of x-rays to check for such a fracture. If you had a laceration evaluated, please understand that foreign bodies such as glass or wood may not be visible to the naked eye or on plain x-rays. If the wound becomes red, swollen, increasingly more painful or if there is any drainage from the wound, please have it reevaluated by a physician for the possibility of a retained foreign body. If you're unable to follow up as outlined in the discharge instructions please return to the emergency department. Thank you for choosing the [facility] Emergency Department for your care. It was a pleasure to serve you today. Departure Forms: Customer Survey General Discharge Information (Zuri JENSEN,Nadja De La Fuente) PA/NECK BAND SETTER Co-Sign Statement Statement: ED Attending supervision documentation- [] I saw and evaluated the patient. I have also reviewed all the pertinent lab results and diagnostic results. I agree with the findings and the plan of care as documented in the PA's/NECK BAND SETTER's documentation. [X] I have reviewed the ED Record and agree with the PA's/NECK BAND SETTER's documentation. [] Additions or exceptions (if any) to the PAs/NECK BAND SETTER's note and plan are summarized below: [] (Jeny HOFFMAN,Kike Dillard)
--- NOTE | 2017-06-03 22:27 | CT SCAN REPORT ---
EXAMINATION: CT ABDOMEN AND PELVIS WITH CONTRAST CLINICAL INFORMATION: Lower abdominal pain COMPARISON: 04/27/2016 CT scan TECHNIQUE: Multidetector volumetric imaging was performed of the abdomen and pelvis following IV administration of 95 mL of Optiray 320 intravenous contrast. Sagittal and coronal reformatted images were obtained on the technologist's workstation. DLP: 1461.09 mGy-cm FINDINGS: LUNG BASES: The visualized lung bases are unremarkable. LIVER, GALLBLADDER, AND BILIARY TREE: The liver is enlarged, measures about 25 cm in maximum CC diameter. There is mild diffuse decreased hepatic parenchymal density, suggestive of hepatic steatosis. No intrahepatic biliary ductal dilatation. The portal vein opacifies homogeneously. The gallbladder is unremarkable with no evidence of radiopaque gallstones, gallbladder wall thickening, or obvious pericholecystic inflammatory changes. PANCREAS: Unremarkable. SPLEEN: Unremarkable. ADRENAL GLANDS: Unremarkable. KIDNEYS AND URETERS: The kidneys are normal in size, shape, and attenuation. No hydronephrosis, hydroureter, or calculi seen. No perinephric stranding. BLADDER: Unremarkable. GASTROINTESTINAL TRACT: The small and large bowel are unremarkable. The appendix is visualized. The lumen of the appendix contains appendicolith. No CT evidence of acute appendicitis. ABDOMINAL WALL: No significant hernia is appreciated. LYMPH NODES: Normal. VASCULAR: Unremarkable. PELVIC VISCERA: The uterus is normal in size. There is a 3.6 cm hypodensity projecting over the posterior right side of the body of uterus. It could represent a prominent right ovary. Further characterization is limited based on this exam. No pelvic free fluid. OSSEOUS STRUCTURES: Unremarkable. IMPRESSION: Hepatomegaly and hepatic steatosis. No CT evidence of acute colitis or acute diverticulitis. A 3.5 cm hypodensity in the right adnexa, could represent a prominent ovary. Further pelvic ultrasound evaluation can be considered.
== END 2017-06-03 23:14 ==
LOC: ERH 17:46
PROVIDERS: Emergency Medicine
DX: R10.30 Lower abdominal pain, unspecified (principal); R11.2 Nausea with vomiting, unspecified; R19.7 Diarrhea, unspecified
CPT/HCPCS: 74177; 81001

== ENCOUNTER 2017-12-02 16:42 | Inpatient (IN) | payer OTHER, MEDICARE ==
[~2017-12-02] VITALS: Ht 170.2 cm; Wt 130.0 kg
[~2017-12-02 16:42] MED LIST changes: +KEFLEX500 M1 PO
--- NOTE | 2017-12-02 17:31 | ED GENERAL ADULT ---
History of Present Illness General Chief Complaint: Nausea, Vomiting, Diarrhea Stated Complaint: +N/V/D Source: patient Exam Limitations: clinical condition Allergies Coded Allergies: lamotrigine (From Lamictal) (Severe, RASH 06/03/17) shrimp (Severe, ANAPHYLAXIS 06/03/17) Fish Containing Products (ANAPHYLAXIS 06/03/17) divalproex sodium (From DEPAKOTE) (vomiting 06/03/17) telithromycin (VOMITING AND DIARRHEA 06/03/17) tetracycline (RASH ON HEAD, SCALP GETS REALLY DRY 06/03/17) topiramate (From TOPAMAX) (PER PT REPORTS HAS SIDE EFFECTS UNKNOWN 06/03/17) haloperidol (CATATONIC/DISTONIC 12/30/15 06/03/17) levofloxacin (SEVERE DIARRHEA 06/03/17) oxycodone (VOMITING 06/03/17) Reconcile Medications Bupropion HCl (Wellbutrin Sr) 100 MG TABLET.ER 100 MG PO 0800 depression Levothyroxine Sodium 100 MCG TABLET 1 TAB PO DAILY AC THYROID (Reported) [place] Carbonate 300 MG CAPSULE 2 CAP PO BID mood stabilizer Olanzapine 10 MG TABLET 10 MG PO QPM psychosis Pravastatin Sodium 40 MG TABLET 1 TAB PO DAILY CHOLESTEROL (Reported) Triage Note: 52F REPORTS DIZZINESS S/P N/V/D X3 DAYS. DENIES ABD PAIN. DENIES CP OR SOB. +WEAKNESS AND FATIGUE. DENIES BLACK/BLOODY STOOLS. STRUGGLES TO TOLERATE STANDING FOR ORTHOS IN TRIAGE. TEARFUL AND NAUSEOUS AT PRESENT. ORTHOS NEGATIVE. HAS BEEN ABLE TO HOLD DOWN SOME FLUIDS AND MEDS. +HEADACHE AND BLURRED VISION. Triage Nurses Notes Reviewed? yes HPI: 52-year-old woman with past medical history of morbid obesity status post bariatric surgery, diabetes mellitus (unknown type I versus type II), hypothyroidism, hypertension, GERD, schizoaffective disorder, and bipolar disorder seen for evaluation of nausea, vomiting, and diarrhea. Patient reports evening she ate a meal consisting of chicken Van with subsequent development of her symptoms. She reports that she has had multiple red colored loose watery bowel movements for which she attributes the color to drinking "crystal light" that has been present for approximately 1 week. She has had intractable nausea and this time and has not eaten any food since that evening. She has been having multiple episodes of nonbloody bilious vomiting. She otherwise has no specific subjective complaints other than stating that she does not "feel well". She has not been able to tolerate her medications by mouth. She denies any headache, fever, chills, chest pain, palpitations, shortness of breath, abdominal pain, constipation. (Sai Awad MD) Vital Signs & Intake/Output Vital Signs & Intake/Output Vital Signs Date Time Temp Pulse Resp B/P B/P Pulse O2 O2 Flow FiO2 Mean Ox Delivery Rate 12/02 2045 98.2 97 22 133/65 99 Room Air 12/02 1908 Room Air 12/03 1907 98.1 95 20 168/74 98 Room Air 12/02 1652 97.7 101 18 130/82 98 Room Air (Joyce HOFFMAN,Roe Liriano) Past History Travel History Traveled to [place] past 21 day No Medical History Any Pertinent Medical History? 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 FATHER (Diabetes). Hx Contributory? No (Sai Awad MD) Review of Systems Review of Systems Constitutional: Reports: see HPI. (Sai Awad MD) Physical Exam Physical Exam General Appearance: moderate distress Comments: General -uncomfortable/ill-appearing middle-aged morbidly obese woman in moderate distress HEENT - NCAT, PERRL, EOMI, anicteric sclera, dry oral mucosa Neck- Supple, no JVD/HJR, no bruits, trachea midline, thyroid normal Cardio - S1, S2 w/o murmurs/gallops/rubs; tachycardic Resp - Clear to auscultation bilaterally, diminished bibasilar airflow GI - Soft, nontender, nondistended, bowel sounds present Neuro - Awake and alert, CN II - XII grossly intact Psych-blunted affect Extremities - No edema, pulses intact, capillary refill <2, skin cool and clammy Core Measures ACS in differential dx? No CVA/TIA Diagnosis: No Sepsis Present: Yes Sepsis Focused Exam Completed? Yes (Sai Awad MD) Progress Differential Diagnoses I considered the following diagnoses in my evaluation of the patient: DKA, HHS, toxic metabolic encephalopathy, food poisoning, gastroenteritis, colitis, sepsis Initial ED EKG: normal axis, normal intervals, normal p-waves, normal QRS complex, normal sinus rhythm, NSR with prolonged QTC Comments: Patient with a 3 day history of nausea/vomiting/diarrhea after eating a meal of chicken Van resulting in decreased p.o. intake of food and water. Vital signs are significant for heart rate in the 100s-she is afebrile with a normal blood pressure. Physical examination demonstrates a morbidly obese woman appearing uncomfortable in moderate distress with dry oral mucosa but with an otherwise benign cardiopulmonary and abdominal examination. Labs including CBC, serum chemistry, lactic acid, troponin are significant for elevated WBC with left shift, elevated anion gap and low CO2 with elevated glucose and negative lactic acid. She has mild transaminitis. Lipase negative. ABG demonstrates a pH of 7.12 with low CO2 and bicarb. [place] level is low and acetone level is positive. Clinically patient meets SIRS/sepsis criteria with tachycardia and elevated WBC count without any obvious source of infection. Blood cultures 2 and urine cultures are obtained in addition to intravenous normal saline at 30 cc/kg. patient's type of diabetes mellitus is unknown however clinically with her acidemia, elevated anion gap, hyperglycemia, and positive acetone she appears to be in diabetic ketoacidosis. Case discussed with stunner and shackler Dr. Alcantara whom agreed with starting intravenous insulin with a bolus and drip with maintenance fluids containing potassium and admission to the ICU. CT chest/abdomen/pelvis with IV contrast ordered and is pending and signed out to the admitting team to assess for site of possible infection which may have precipitated patient's diabetic ketoacidosis. (Sai Awad MD) Plan of Care: Orders Procedure Date/time Status Nothing by Mouth 12/03 B Active CBC WITHOUT DIFFERENTIAL 12/03 0600 Active ICU LAB BUNDLE 12/03 0100 Active NUTRITIONAL CONSULT 12/02 224 Active Wound Care/Dressing 12/02 223 Active Weight 12/02 223 Active VTE Mechanical Prophylaxis 12/02 223 Active Vital Signs 12/02 223 Active Turn and Reposition 12/03 2235 Active Drains/Tubes 12/03 2235 Active Teach/Educate 12/03 2235 Active Skin Integrity Protocol 12/03 2235 Active Skin/Pressure Ulcer Assess (Sk 12/03 2235 Active Precautions 12/03 2235 Active Pain Treatment and Response 12/03 2235 Active Nutritional Intake, Monitor 12/03 2235 Active Isolation 12/03 2235 Active CIWA 12/03 2235 Active Patient Care Conference 12/03 2235 Active Activity/Ambulation 12/03 2235 Active Pathway - chart 12/02 2222 Active Lab Add-on Test 12/02 2148 Active VRE ACTIVE SURVIELLANCE 12/02 2144 Active MRSA SCREENING 12/02 2144 Active Add-on Test (ER Only) 12/02 2133 Active Code Status 12/03 2131 Active LACTIC ACID 12/03 2107 Complete PHOSPHORUS 12/02 2100 Complete MAGNESIUM 12/02 2099 Complete HEPATIC FUNCTION PANEL 12/02 2100 Complete BASIC ELECTROLYTES PLUS BUN&CR 12/02 2100 Complete Saline Lock 12/03 2015 Active Pathway - chart 12/02 2016 Active House Staff 12/03 2015 Active Patient Data 12/03 2007 Active ED Holding Orders 12/02 1954 Active Admit to inpatient 12/02 195 Active Vital Signs 12/02 195 Active FingerStick- Glucose 12/02 195 Active Add-on Test (ER Only) 12/02 1840 Active EKG 12/02 1826 Active ARTERIAL BLOOD GAS (GEN) 12/02 1824 Active URINE DRUGS OF ABUSE 12/02 1824 Complete Add-on Test (ER Only) 12/02 181 Active CULTURE,URINE 12/02 181 Active BLOOD CULTURE 12/02 1816 Active URINALYSIS 12/02 1816 Complete Add-on Test (ER Only) 12/02 1733 Active TSH REFLEX 12/02 1721 Active TROPONIN LEVEL 12/02 1721 Active MAGNESIUM 12/02 1721 Active LIPASE 12/02 1721 Active LITHIUM 12/02 1721 Active LACTIC ACID 12/02 1721 Active GLYCOSYLATED HGB 12/02 1721 Active ACETONE 12/02 1721 Active COMPREHENSIVE METABOLIC PANEL 12/02 1711 Active CBC WITHOUT DIFFERENTIAL 12/02 1711 Complete Lab Add-on Test 12/02 UNK Active VTE Mechanical Prophylaxis 12/02 UNK Active Vital Signs 12/02 UNK Complete Intake & Output 12/02 UNK Active Hemoccult 12/02 UNK Active FingerStick- Glucose 12/02 UNK Active Current Medications Sig/[place] Start time Last Medication Dose Stop Time Status Admin Enoxaparin Sodium 40 MG DAILY 12/03 0900 AC (Lovenox) Acetaminophen 650 MG Q6P PRN 12/02 223 AC (Tylenol) Acetaminophen 1,000 MG Q6P PRN 12/02 223 AC (Ofirmev) Oxycodone HCl 5 MG Q6P PRN 12/02 223 AC (Roxicodone) Potassium Chloride 10 MEQ Q1H 12/02 221 AC 12/02 12/02 2316 2220 Pantoprazole Sodium 40 MG DAILY 12/02 2199 AC 12/02 (Protonix) 220 Potassium Chloride 40 MEQ Q13H 12/02 2114 AC 12/02 (KCl 40MEQ in D5W NS 2126 1000ML) Dextrose/Sodium 1,000 ML Chloride (D5-Normal Saline) Potassium Chloride 40 MEQ .[CONTINUOUS] 12/02 2100 CAN (KCl 40MEQ in D5W NS 1000ML) Levothyroxine Sodium 50 MCG DAILY 12/02 2033 AC 12/02 (Synthroid) 212 Acetaminophen 650 MG Q6P PRN 12/02 2014 AC (Tylenol) Sodium Bicarbonate 75 MEQ Q10H 12/02 2015 AC 12/02 (Sodium Bicarbonate 2126 8.4%) Sodium Chloride 1,000 ML (Half Normal Saline) Insulin Human Regular 100 UNIT Q24H 12/03 1999 AC 12/02 (Novolin R (Insulin 2023 Drip)) Sodium Chloride 100 ML (Normal Saline 0.9%) Sodium Bicarbonate 100 MEQ CONTINOUS INFUSION 12/03 1999 CAN (Sodium Bicarbonate 8.4%) Dextrose/Water 1,000 ML (D5W 1000) Ondansetron HCl 0 .STK-MED ONE 12/02 171 CAN (Zofran) Ondansetron HCl 4 MG ONCE ONE 12/02 1715 CAN (Zofran) 12/02 171 Sodium Chloride 0 ONCE ONE 12/02 171 CAN (Normal Saline 0.9%) 12/03 1715 Laboratory Tests 12/02/172124: Lactic Acid 2.2 H 12/02/172124: Carbon Dioxide < 5.0 *L, Anion Gap 22 H, Estimated GFR > 60, BUN/Creatinine Ratio 10.0, Phosphorus 2.0 L, Magnesium 2.6 H, Total Bilirubin 0.2, Direct Bilirubin 0.2, AST 89 H, ALT 67 H, Alkaline Phosphatase 105, Total Protein 6.9 , Albumin 4.3 12/02/172015: Urine Opiates Screen < 100, Methadone Screen < 40, Barbiturate Screen < 60, Ur Phencyclidine Scrn < 6.00, Amphetamines Screen 102, U Benzodiazepines Scrn < 85, Urine Cocaine Screen < 50, Urine Cannabis Screen < 5.00, Urinalysis LIGHT H, Urine Color YEL, Urine Clarity CLEAR, Urine pH 6.0, Ur Specific [place] >= 1.030 , Urine Protein 100 H, Urine Ketones >=80, Urine Nitrite NEG, Urine Bilirubin NEG@ICTO, Urine Urobilinogen 0.2, Ur Leukocyte Esterase NEG, Ur Microscopic SEDIMENT EXAMINED, Urine RBC 1-3, Urine WBC 1-3 H, Ur Epithelial Cells FEW, Urine Bacteria FEW H, Hyaline Casts 1-3 H, Granular Casts RARE H, Urine Mucus FEW, Urine Hemoglobin MOD H, Urine Glucose >=1000 H 12/02/171914: pH 7.12 *L, pCO2 16 L, pO2 109 H, HCO3 5 L, ABG O2 Sat (Measured) 97.0, P-50 (Temp Corrected) N, Carboxyhemoglobin 0.7 L, O2 Concentration % R/A, Temperature 98.1, Phlebotomy Draw Site RIGHT RADIAL 12/02/17 182: Troponin I Cancelled 12/02/17 1824: Acetone Level Cancelled 12/02/17 1721: Anion Gap 25 H, Estimated GFR > 60, BUN/Creatinine Ratio 10.0, Glucose 424 H, Hemoglobin A1c Pending, Lactic Acid 1.3, Calcium 8.8, Magnesium 2.7 H, Total Bilirubin 0.5, AST 97 H, ALT 81 H, Alkaline Phosphatase 130 H, Troponin I < 0.01, Total Protein 8.2, Albumin 5.0, Globulin 3.2, Albumin/Globulin Ratio 1.6, Lipase 105, TSH &T3 &Free T4 Intrp 0.814, CBC w Diff MAN DIFF ORDERED, RBC 5.12, MCV 91.0, MCH 30.4, MCHC 33.4, RDW 13.4, MPV 10.0, Gran % 87.8 H, Lymphocytes % 8.3 L, Monocytes % 3.7, Eosinophils % 0.1, Basophils % 0.1, Absolute Granulocytes 16.9 H, Segmented Neutrophils 85 H, Band Neutrophils 2, Absolute Lymphocytes 1.6, Lymphocytes 8 L, Monocytes 5, Absolute Monocytes 0.7 H, Absolute Eosinophils 0, Absolute Basophils 0, Platelet Estimate ADEQUATE, Normocytic RBCs VERIFIED, Normochromic RBCs VERIFIED, [place] Total RBCs Counted 100 , [place] 0.2 L, Acetone Level POSITIVE AT 1:32 DIL Microbiology 12/03 2151 UPPER RESP: Surveillance Culture - RECD 12/03 2151 GI: Surveillance Culture - RECD 12/03 2015 URINE ROUT: Urine Culture - RECD 12/02 1908 BLOOD: Blood Culture - RECD 12/02 183 BLOOD: Blood Culture - RECD (Joyce HOFFMAN,Roe Liriano) Departure Departure Disposition: STILL A PATIENT Condition: Stable Clinical Impression Primary Impression: DKA (diabetic ketoacidoses) Secondary Impressions: Sepsis Referrals: Galindo Tyler MD (PCP/Family) Departure Forms: Customer Survey General Discharge Information Admission Note Spoke With: Kota Perez MD Documentation of Exam: Documentation of any treatments & extenuating circumstances including Concerns Regarding Discharge (functional status, medication knowledge or non-compliance, living conditions, etc.) that warrant an admission rather than observation: * ICU admission * Intravenous fluids/insulin/potassium * Possible intravenous antibiotic * Further assessment of SIRS/sepsis * Follow-up CT chest/abdomen/pelvis * Intravenous antiemetics (Sai Awad MD) Resident Co-Sign Statement Statement: ED Attending supervision documentation- [X] I saw and evaluated the patient. I have also reviewed all the pertinent lab results and diagnostic results. I agree with the findings and the plan of care as documented in the Resident's documentation. [X] I have reviewed the ED Record and agree with the Resident's documentation. [] Additions or exceptions (if any) to the Resident's note and plan are summarized below: [Patient requiring ICU level of care for DKA. Patient will need an endocrinology consultation, aggressive hydration, insulin drip] (Joyce HOFFMAN,Roe Liriano) Critical Care Note Critical Care Note Critical Care Time: 30-74 min ([facility] HOFFMAN,Sai)
[2017-12-02 17:37] LABS: ABSOLUTE BASOPHIL COUNT 0 /CUMM (0.0-0.2); ABSOLUTE EOSINOPHIL COUNT 0 /CUMM (0.0-0.7); ABSOLUTE GRANULOCYTE CT 16.9 /CUMM (1.4-6.5); ABSOLUTE LYMPH COUNT 1.6 /CUMM (1.2-3.4); ABSOLUTE MONOCYTE COUNT 0.7 /CUMM (0.10-0.60); BASOPHIL % 0.1 % (0.0-2.0); EOSINOPHIL % 0.1 % (0-5); GRANULOCYTE % 87.8 % (42.2-75.2); HEMATOCRIT 46.5 % (37-47); MEAN CORPUSCULAR HGB 30.4 PG (27.0-31.0); MEAN CORPUSCULAR HGB CONC 33.4 G/DL (33.0-37.0); PLATELET COUNT 343 /CUMM (130-400); RBC DISTRIBUTION WIDTH 13.4 % (11.5-14.5); RED BLOOD CELL CT 5.12 /CUMM (4.20-5.40); WHITE BLOOD CELL COUNT 19.3 /CUMM (4.8-10.8)
[2017-12-02 18:40] LABS: LITHIUM 0.2 mmol/L (0.6-1.2)
--- NOTE | 2017-12-02 21:32 | History & Physical ---
DanielEvan 12/02/17 2132: General Information and HPI MD Statement: I have seen and personally examined MARYLIN KEITH and documented this H&P. The patient is a 52 year old F who presented with a patient stated chief complaint of n/v/d Source of Information: patient Exam Limitations: clinical condition History of Present Illness: 52 yo F with PMH of morbid obesity s/p bariatric surgery, diabetes mellitus ( unknown type I vs II), hypothyroidism, hypertension, hyperlipidemia, obstructive sleep apnea on CPAP, GERD, layrngeal cysts, schizoaffective disorder (depressed type with suicidality), and bipolar disorder. She is seen for evaluation of nausea, vomiting, and diarrhea. According to patient, 3 days before presentation patient had chicken pasta as a meal, and believes she developed subsequent nausea and vomiting. However, she reports having malaise for almost 3 weeks, and diarrhea (loose and watery) for one week, although she cannot remember what instigated either of them. She endorses feeling dehydrated, thirsty, and urinating frequently for the past one week and reports that she recently developed speech difficulties and slurring/ stuttering. She is not a reliable historian. From the chart it seems that she had speech difficulties back in March. When asked if she takes her medications she reports that metformin was stopped back in March by her PCP, Dr. Tyler. She endorses that he did this because her sugars were controlled. She looks to be in a considerable amount of distress. She denies headache, fever , sore throat, chest pain. Allergies/Medications Allergies: Coded Allergies: lamotrigine (From Lamictal) (Severe, RASH 06/03/17) shrimp (Severe, ANAPHYLAXIS 06/03/17) Fish Containing Products (ANAPHYLAXIS 06/03/17) divalproex sodium (From DEPAKOTE) (vomiting 06/03/17) telithromycin (VOMITING AND DIARRHEA 06/03/17) tetracycline (RASH ON HEAD, SCALP GETS REALLY DRY 06/03/17) topiramate (From TOPAMAX) (PER PT REPORTS HAS SIDE EFFECTS UNKNOWN 06/03/17) haloperidol (CATATONIC/DISTONIC 12/30/15 06/03/17) levofloxacin (SEVERE DIARRHEA 06/03/17) oxycodone (VOMITING 06/03/17) Home Med list Bupropion HCl (Wellbutrin Sr) 100 MG TABLET.ER 100 MG PO 0800 depression Levothyroxine Sodium 100 MCG TABLET 1 TAB PO DAILY AC THYROID (Reported) [address] Carbonate 300 MG CAPSULE 2 CAP PO BID mood stabilizer Olanzapine 10 MG TABLET 10 MG PO QPM psychosis Pravastatin Sodium 40 MG TABLET 1 TAB PO DAILY CHOLESTEROL (Reported) Past History Travel History Traveled to [place] past 21 day No Medical History Neurological: NONE EENT: allergies, rhinitis, sinusitis, LARYNGEAL CYSTS Cardiovascular: hyperlipidemia Respiratory: asthma, bronchitis, obstructive sleep apnea, allergies Gastrointestinal: GERD Hepatic: NONE Renal: NONE Musculoskeletal: NONE Psychiatric: anxiety, bipolar disease, depression, insomnia, schizo affective disorder (depressed, with suicidality) Endocrine: hypothyroidism, obesity, diet controlled diabetes Blood Disorders: NONE Cancer(s): NONE 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 FATHER (Diabetes). Psychosocial History Who Do You Live With? parent Services at Home: None Primary Language: Vietnamese Functional Ability ADLs Independent: dressing, eating, toileting, bathing. Ambulation: independent IADLs Independent: finances, food prep, telephone, transportation. Review of Systems Review of Systems Constitutional: Reports: see HPI. Exam & Diagnostic Data Last 24 Hrs of Vital Signs/I&O Vital Signs Date Time Temp Pulse Resp B/P B/P Pulse O2 O2 Flow FiO2 Mean Ox Delivery Rate 12/02 2045 98.2 97 22 133/65 99 Room Air 12/02 190 Room Air 12/03 1907 98.1 95 20 168/74 98 Room Air 12/02 1652 97.7 101 18 130/82 98 Room Air Physical Exam General Appearance Alert, Cooperative, Mild Distress Skin Temp/Moisture Exam: Warm/Dry Sepsis Skin Exam (color): Normal for Ethnicity HEENT Atraumatic, EOMI Neck Supple Cardiovascular Normal S1, Normal S2 Lungs Clear to Auscultation, Normal Air Movement Abdomen Normal Bowel Sounds, Soft, No Tenderness Extremities No Cyanosis, Normal Pulses, No Tenderness/Swelling Last 24 Hrs of Labs/Salo: Laboratory Tests 12/02/172124: Lactic Acid 2.2 H 12/02/172124: Carbon Dioxide < 5.0 *L, Anion Gap 22 H, Estimated GFR > 60, BUN/Creatinine Ratio 10.0, Phosphorus 2.0 L, Magnesium 2.6 H, Total Bilirubin 0.2, Direct Bilirubin 0.2, AST 89 H, ALT 67 H, Alkaline Phosphatase 105, Total Protein 6.9 , Albumin 4.3 12/02/172015: Urine Opiates Screen < 100, Methadone Screen < 40, Barbiturate Screen < 60, Ur Phencyclidine Scrn < 6.00, Amphetamines Screen 102, U Benzodiazepines Scrn < 85, Urine Cocaine Screen < 50, Urine Cannabis Screen < 5.00, Urinalysis LIGHT H, Urine Color YEL, Urine Clarity CLEAR, Urine pH 6.0, Ur Specific Jackson >= 1.030 , Urine Protein 100 H, Urine Ketones >=80, Urine Nitrite NEG, Urine Bilirubin NEG@ICTO, Urine Urobilinogen 0.2, Ur Leukocyte Esterase NEG, Ur Microscopic SEDIMENT EXAMINED, Urine RBC 1-3, Urine WBC 1-3 H, Ur Epithelial Cells FEW, Urine Bacteria FEW H, Hyaline Casts 1-3 H, Granular Casts RARE H, Urine Mucus FEW, Urine Hemoglobin MOD H, Urine Glucose >=1000 H 12/02/171914: pH 7.12 *L, pCO2 16 L, pO2 109 H, HCO3 5 L, ABG O2 Sat (Measured) 97.0, P-50 (Temp Corrected) N, Carboxyhemoglobin 0.7 L, O2 Concentration % R/A, Temperature 98.1, Phlebotomy Draw Site RIGHT RADIAL 12/02/17 1826: Troponin I Cancelled 12/02/17 1824: Acetone Level Cancelled 12/02/17 1721: Anion Gap 25 H, Estimated GFR > 60, BUN/Creatinine Ratio 10.0, Glucose 424 H, Hemoglobin A1c Pending, Lactic Acid 1.3, Calcium 8.8, Magnesium 2.7 H, Total Bilirubin 0.5, AST 97 H, ALT 81 H, Alkaline Phosphatase 130 H, Troponin I < 0.01, Total Protein 8.2, Albumin 5.0, Globulin 3.2, Albumin/Globulin Ratio 1.6, Lipase 105, TSH &T3 &Free T4 Intrp 0.814, CBC w Diff MAN DIFF ORDERED, RBC 5.12, MCV 91.0, MCH 30.4, MCHC 33.4, RDW 13.4, MPV 10.0, Gran % 87.8 H, Lymphocytes % 8.3 L, Monocytes % 3.7, Eosinophils % 0.1, Basophils % 0.1, Absolute Granulocytes 16.9 H, Segmented Neutrophils 85 H, Band Neutrophils 2, Absolute Lymphocytes 1.6, Lymphocytes 8 L, Monocytes 5, Absolute Monocytes 0.7 H, Absolute Eosinophils 0, Absolute Basophils 0, Platelet Estimate ADEQUATE, Normocytic RBCs VERIFIED, Normochromic RBCs VERIFIED, Fld Total RBCs Counted 100 , [address] 0.2 L, Acetone Level POSITIVE AT 1:32 DIL Microbiology 12/02 2144 UPPER RESP: Surveillance Culture - ORD 12/02 2144 GI: Surveillance Culture - ORD 12/03 2015 URINE ROUT: Urine Culture - RECD 12/02 190 BLOOD: Blood Culture - RECD 12/02 183 BLOOD: Blood Culture - RECD Assessment/Plan Assessment: 52-year-old female being evaluated for nausea, vomiting, diarrhea with a presentation most consistent with DKA: cessation of diabetic medication, hyperglycemia, acidosis, hypokalemia, tachypnea, elevated white count, dry mucous membranes. Therefore we will treat for DKA. T 98.2, HR 95 - 201, RR 22, BP 133/8, O2 98% on RA WBC 19.3, left shift, 2 bands Na 138, K 3.6, BUN/frame bender 25/9, HCO3 8 Glu 424 Anion gap 25 AST 97, ALT 81, ALP 130, Lipase 105 Troponin < 0.01 EKG: Sinus tachycardia Urine: acetone positive UA: protein 100, ketones +, nitrite -, leukocyte esterase -, 1-3 WBC, glucose > 1000 Utox: [address] + CT chest + abd pelvis 12/02/17: showed moderate thickening of the wall of the distal two thirds of the thoracic esophagus, severe hepatomegaly with hepatic parenchymal disease possibly hepatic steatosis, a soft tissue mass in the pelvic cavity 5X3X3.5 posterior and superior to the bladder possible adnexal mass was a mesenteric mass, 2.9 cm mass in the left side present as well, no acute diverticulitis seen. #Diabetic ketoacidosis -Admit patient to ICU for DKA -Unclear why her metformin was stopped back in March -Unclear what precipitating factor was, elevated white count implies infection, but patient denies any recent history of fever, flulike symptoms, dysuria, abdominal pain -Patient received 2 L of normal saline bolus in the ER -Patient given 10 units regular insulin in the ER -Insulin drip started 3 Units/hr and will be titrated per protocol -Patient has a pH of 7.1 with a bicarb less than 5, anion gap 25 on admission -Started D5 half NS, and normal saline with 40 mEq potassium (3.1 on arrival) -Given another 20 mEq potassium -Monitor BMP every 4 hours, next one with ABG, CBC, BMP -Insulin drip will continue until 2 consecutive BMPs show closed anion gap -Switch to D5 1/2NS when glucose < 250 -IV PPI due to guaiac positive stool -Continue repleting magnesium and potassium as needed -Keep patient n.p.o. -Endocrinology consult placed #Nausea, vomiting, diarrhea (occult blood) -Keep hydrated with fluids -Zofran as needed -Monitor pH for vomiting and diarrhea in the setting of DKA -Monitor CBC for potential blood loss #Thickening of the distal two thirds of the esophagus -Possibly due to long-standing GERD -Gastroenterology consult placed -Continue PPI #Tissue mass in pelvic cavity -Transvaginal ultrasound ordered -We will consider OB consult if suspicious #Leukocytosis -No source of infection currently -We will hold off antibiotics for now #Hypokalemia -Continue repleting even after correction, due to insulin effect -Try to keep potassium above 5.0 #Transaminitis -Controlled diabetes vs fatty liver -Consider right upper quadrant ultrasound if they trend up -Hepatitis viral panel ordered #Hyperlipidemia -Pravastatin 40 mg #Hx of hypothyroidism -Levothyroxine 50 mcg #Hx of bipolar disorder -[address] 600 mg #schizoaffective disorder -Olanzapine 10 mg #Obstructive sleep apnea on CPAP -Encouraged use of CPAP if hypoxic at night -Monitor O2 saturation #GERD -Protonix 40 Full code DVT ppx: Lovenox and SCDs N.p.o. As Ranked By This Provider Problem List: 1. DKA (diabetic ketoacidoses) Core Measures/Misc (12/11) Acute Coronary Syndrome ACS Diagnosis: No Congestive Heart Failure Congestive Heart Failure Diagnosis No Cerebrovascular Accident CVA/TIA Diagnosis: No VTE (View Protocol) VTE Risk Factors Acute Medical Illness No Mechanical VTE Prophylaxis d/t N/A MechProphylax Ordered No VTE Pharm Prophylaxis d/t NA PharmProphylax ordered Sepsis (View protocol) Sepsis Present: Yes If YES complete Sepsis Event Note If YES complete Sepsis Event Note Inpatient Sepsis Exam Sepsis Cardiac Exam: Regular Rate/Rhythm Sepsis Resp Exam: CTA Sepsis Cap Refill Exam: <2 Sec Sepsis Peripheral Pulse Exam: Normal Sepsis Peripheral Pulse Location: Dorsalis Pedis Sepsis Skin Color Exam: Normal for Ethnicity Skin Temp/Moisture Exam: Warm/Dry Radha Castillo 12/02/17 2146: Core Measures/Misc (12/11) Sepsis (View protocol) If YES complete Sepsis Event Note If YES complete Sepsis Event Note Resident Review Statement Resident Statement: examined this patient, discussed with internal combustion engine assembler, agreed with internal combustion engine assembler Other Findings: This is a 52-year-old morbidly obese female status post lap band procedure ( subsequent reversal), history of obstructive sleep apnea on CPAP (noncompliant), GERD, hyperlipidemia, hypothyroidism, schizo affective disorder (depressed, with suicidality) bipolar, anxiety, depression with recent admission April 14, 2017 at [facility] came into [facility] emergency department for evaluation of nausea, vomiting and diarrhea. Apparently 3-4 days prior to presentation she ate a meal consisting of chicken Van with subsequent development of nausea ,vomiting and diarrhea. She endorses of having multiple loose watery bowel movements, red in color, however she also gives a history that she was drinking (Crystal light) and the red color has been present for 1 week prior. More recently since last 3 weeks she has not been feeling good, she was on metformin for her diabetes, however as per her - recently in March her primary care Dr. Tyler had stopped metformin because her blood sugars were in good control. She does not seem to be a reliable historian therefore this will need to be confirmed with her primary care. Since March she was not taking anything for diabetes. She has been having increased urination for at least 3 weeks prior to presentation and since last 1 week prior to presentation she has been having increased thirst, nausea vomiting and more recently multiple loose bowel movements. He also notes that since last few days she has been having stuttering speech. She denied any headache, fever, sore throat, nausea any abdominal pain, constipation, any burning in urine. Review of system as mentioned above. Physical exam she was alert oriented, however she was emotionally labile, was nauseous. HEENT PERRLA. Neck no JVD. CVS S1-S2 present, no murmur. RS bilateral air entry, no adventitious sounds. Abdomen soft, nontender, bowel sounds present. Bilateral lower extremity no edema clubbing or cyanosis. Her vitals on presentation temperature of 98.2, pulse of 95 201, respiration of 22, blood pressure 133/65, she was saturating 98% on room air. Labs white count of 19.3, 2 bands. Sodium of 138, potassium 3.6, BUN/creatinine 25/9, bicarb of 8. Glucose of 424. Function test mildly elevated with AST 97, ALT 81, alkaline phosphatase 130. She will set of troponin less than 0.01. EKG normal sinus rhythm, sinus tachycardia. Function test within normal limit. Lipase 105. Anion gap of 25. Urine acetone positive UA showed protein of 100, ketones present, increased specific gravity, negative nitrite, negative leukocyte esterase, 1-3 WBC, glucose greater than thousand. CT chest abdomen and pelvis showed moderate thickening of the wall of the distal two thirds of the thoracic esophagus, severe hepatomegaly with hepatic parenchymal disease possibly hepatic steatosis, a soft tissue mass in the pelvic cavity 5X3X3.5 posterior and superior to the bladder possible adnexal mass was a mesenteric mass, 2.9 cm mass in the left side present as well, no acute diverticulitis seen Urine toxicology positive for lithium. Problem List #1 DKA #2 AGMA #3 Viral Gastroenteritis #4 Leucocytosis - no obvious source of sepsis #5 Thoracic Esophagus thickening - Distal 2/3rd #6 transaminitis possibly 2/2 to hepatic steatosis #7 Pelvic adnexal mass 5 x 3 x 3.5 postsuperior to bladder and left 2.9 cm mass #8 PMH GERD #9 h/o HEAVEN on CPAP #10 HL #11 HTN #12 schizoaffective disorder/bipolar #13 Hypothyroidism Plan * We will admit the patient to critical care unit for treatment of DKA. * Even though she has a white count, the source of precipitation not yet clear, she was tAKEN off metformin in mar and was nOT on any medication for diabetes. * She denies any abdominal pain, sore throat, fever, burning in urine or any other complaint. * Ct treating the DKA with insulin drip @3 units/hour for now and titrate per protocol * start bicarb drip due to extremely low bicarbonate * we will start iv normal saline, she has received initial resuscitation @30ml/ kg for sepsis due to high white count, tachycardia and increased RR * once sugars are below 250 we can switch to D51/2NS * Ct to check icu bundle q4 hourly * Ct FS q1 hourly. * IV PPI due to guaiac positive stool and GERD * Zofran PRN for nausea * replete potassium as needed * replete magnesium * endo consult * Keep patient NPO for now. * Change necessary po home meds to iv * check thyroid function test. * will obtain transvaginal USG for pelvx mass * case discussed with endo, will see in am * GI consult for distal esophagus thickening. * Once sugars are better controlled can transition to Sc insulin and switch to CC-3 diet. * patient was not on insulin at home. FC NPO Dvt Px PP Kota Perez 12/02/17 2328: Core Measures/Misc (12/11) Sepsis (View protocol) If YES complete Sepsis Event Note If YES complete Sepsis Event Note Attending MD Review Statement Attending Statement Attending MD Statement: examined this patient, discuss w/resident/PA/JOB PRINTER APPRENTICE, agreed w/resident/PA/JOB PRINTER APPRENTICE Attending Assessment/Plan: Addendum by . Patient was seen and examined at bedside today ( 12/02/17 ) at 9:30 Pm. Reviewed the history physical done by the resident. Reviewed the past medical family, family, social history. ROS: 10 point system reviewed and negative except as described above. Alert, awake, has a oral dryness patient says difficult to speak because of that. Obese not in distress. Cardiac examination is normal Examination is normal n Abdomen-obese nontender bowel sounds are present. The resident note for full examination Chest x-ray, CT abdomen pelvis, CT chest, labs reviewed Assessment: #Diabetic ketoacidosis. #Nausea, vomiting, diarrhea likely due to DKA versus because of DKA due to probable viral enteritis. #Thickening of the distal two thirds of the esophagus, could be esophagitis due to persistent vomiting and reflux. #A 5.0 x 3.0 x 3.5 cm soft tissue mass in the pelvic cavity, just posterior and superior to the bladder, could represent an adnexal mass versus a mesenteric mass. #Leukocytosis of unclear etiology. #Hypokalemia. #Hypophosphatemia. #Transaminitis likely due to uncontrolled diabetes and fatty liver go to end #Chronic medical issues: Hypothyroidism, bipolar disorder, schizoaffective disorder, obstructive sleep apnea on CPAP, GERD, hyperlipidemia. Plan: Admit to ICU, patient received 2 L of IV normal saline bolus in the ER, started on insulin drip after bolus of 10 units regular insulin. Patient has a pH 7.1 with a bicarb less than 5, anion gap 25 on admission. ER spoke to the endocrinology, insulin drip. Currently on bicarb and D5 half NS as well as normal saline with 40 mEq potassium. Monitor BMP every 4 hourly. Getting additional 20 mEq of potassium IV as separate infusion. Continue with insulin drip until 2 BMP is documenting normal anion gap. Keep n.p.o. for now. Repeat ABG, BMP, CBC at 1 PM. Endo to see the patient in a.m. Get transvaginal ultrasound to assess the pelvic mass. If it is ovarian mass can consider BLOW DOWN HELPER consult. For esophageal thickening-continue with the PPI, get GI evaluation in a.m. Etiology of the leukocytosis is not clear, no infectious source is found. Not starting on any antibiotics. Will recheck the BICYCLE DESIGNER. Elevated LFTs are likely due to uncontrolled diabetes and pre-existing fatty liver. But can get hepatitis viral panel. Patient complains some red color diarrhea, hemoglobin is stable, will give IV Protonix and Zofran for nausea. For her chronic medical issues-can resume home medications when taking oral fluids. Reviewed with the resident. Agree with the rest of the plan as per resident's note. Dr.Ravinder Miguel MD. Hospitalist. Pager: [phone], cell: [phone].
--- NOTE | 2017-12-02 21:37 | CT SCAN REPORT ---
EXAMINATION: CT CHEST, ABDOMEN AND PELVIS WITH CONTRAST CLINICAL INFORMATION: Nausea, vomiting, shortness of breath. COMPARISON: 06/03/2017 CT scan abdomen and pelvis. TECHNIQUE: Multidetector volumetric imaging was performed of the chest, abdomen and pelvis following IV administration of 95 mL of Optiray 320 intravenous contrast. Sagittal and coronal reformatted images were obtained on the technologist's workstation. DLP: 1592.41 mGy-cm FINDINGS: LUNGS: The lungs are normally expanded. No focal pulmonary opacity, suspicious pulmonary nodule or pulmonary mass. No pleural effusion. No pneumothorax. MEDIASTINUM: The cardiac size is within normal limits. No pericardial effusion. The thoracic aorta and pulmonary artery are normal in diameter. The trachea and shira are patent and unremarkable. There is diffuse moderate thickening of the wall of the thoracic esophagus, starting shortly above the level of the shira and extends to the gastroesophageal junction. No mediastinal, hilar or axillary adenopathy noted. There is a 1.0 cm soft tissue nodule with adjacent metallic density in the lateral left breast. This corresponds with the stable mass at 3 o'clock position of the left breast seen on prior mammograms and ultrasound dated back to 08/03/2011. The metallic density represents the ribbon-shaped biopsy clip seen on 07/20/2017 mammogram. LIVER, GALLBLADDER, AND BILIARY TREE: The liver is enlarged and demonstrates significant decrease parenchymal density. It measures about 27 cm in maximum CC dimension. There are patchy areas of denser hepatic parenchyma in the subcapsular part of the anterior left lobe, subcapsular lateral right lobe it could represent areas of fatty sparing. The findings are more prominent than the May 2017 CT scan. No biliary ductal dilatation noted. The portal vein opacifies homogeneously. The gallbladder is unremarkable with no evidence of radiopaque gallstones, gallbladder wall thickening, or obvious pericholecystic inflammatory changes. PANCREAS: Unremarkable. SPLEEN: Unremarkable. ADRENAL GLANDS: Unremarkable. KIDNEYS AND URETERS: The kidneys are normal in size, shape, and attenuation. No hydronephrosis, hydroureter, or calculi seen. No perinephric stranding. BLADDER: Unremarkable. GASTROINTESTINAL TRACT: Thickening of the wall of the distal two thirds of the thoracic esophagus with extension to the gastroesophageal junction. The stomach is normally distended. The duodenum, small bowel loops and colon are not dilated. Colon diverticulosis noted without evidence of acute diverticulitis. There is no free fluid or free air in the abdomen or pelvis. The appendix is visualized and without evidence of acute appendicitis. ABDOMINAL WALL: No significant hernia is appreciated. LYMPH NODES: No retroperitoneal, mesenteric or pelvic sidewall adenopathy. VASCULAR: Unremarkable. PELVIC VISCERA: There is a 2.9 cm left adnexal mass. There is a 5.0 x 3.0 x 3.5 cm soft tissue mass in the pelvis, just located posterior and superior to the urinary bladder as seen on axial image 783 from series 4, coronal image 64 and sagittal image 88. It could represent an adnexal mass versus a mesenteric mass. OSSEOUS STRUCTURES: No aggressive bony lesion. IMPRESSION: 1. Moderate thickening of the wall of the distal two thirds of the thoracic esophagus. Inflammatory versus neoplastic etiologies could be considered and clinically evaluated. 2. Severe hepatomegaly and hepatic parenchymal disease such as hepatic steatosis. Clinical and lab correlation is suggested. 3. A 5.0 x 3.0 x 3.5 cm soft tissue mass in the pelvic cavity, just posterior and superior to the bladder, could represent an adnexal mass versus a mesenteric mass. There is also a 2.9 cm left adnexal mass. Sonographic correlation can be considered. 3. Colon diverticulosis without evidence of acute diverticulitis.
[2017-12-02 21:45] VITALS: BP 132/70
[2017-12-03] VITALS: BP 140/50
[2017-12-03 08:00] VITALS: BP 138/68
[2017-12-03 08:13] LABS: ABSOLUTE EOSINOPHIL COUNT 0 /CUMM (0.0-0.7); MEAN CORPUSCULAR HGB 30.3 PG (27.0-31.0)
[2017-12-03 08:40] LABS: ABSOLUTE BASOPHIL COUNT 0 /CUMM (0.0-0.2); ABSOLUTE GRANULOCYTE CT 12.7 /CUMM (1.4-6.5); BASOPHIL % 0.1 % (0.0-2.0); EOSINOPHIL % 0 % (0-5); MEAN CORPUSCULAR HGB CONC 33.2 G/DL (33.0-37.0); MEAN CORPUSCULAR VOLUME 91.1 FL (81.0-99.0); MEAN PLATELET VOLUME 10.6 FL (7.4-10.4); PLATELET COUNT 240 /CUMM (130-400); RBC DISTRIBUTION WIDTH 13.8 % (11.5-14.5); RED BLOOD CELL CT 4.31 /CUMM (4.20-5.40); WHITE BLOOD CELL COUNT 14.7 /CUMM (4.8-10.8)
[2017-12-03 08:48] LABS: HEMATOCRIT 39.2 % (37-47)
--- NOTE | 2017-12-03 09:22 | PN- Resident CRCU ---
See Addendum Subjective HPI/CRCU Issues: Patient presented last night. She is continued nausea and vomiting this morning. She says that she previously took metformin but stopped that in March because her PCP told her to. She also has not been taking her other oral medications because she has been vomiting. Objective Vital Signs & I&O Last 8 Hrs of Vitals and I&O: Vital Signs Date Time Temp Pulse Resp B/P B/P Pulse O2 O2 Flow FiO2 Mean Ox Delivery Rate 12/03 0400 95 Room Air 12/03 0000 95 Room Air 12/03 0000 96.8 85 30 140/50 97 Room Air 12/02 2240 98 Room Air Room Air 12/02 2145 97.6 92 20 132/70 98 Room Air 12/02 2046 98.2 97 22 133/65 99 Room Air 12/02 1909 Room Air 12/02 1908 98.1 95 20 168/74 98 Room Air 12/02 1652 97.7 101 18 130/82 98 Room Air Intake & Output 12/03 1600 12/03 0800 12/03 0000 Intake Total 1425 3178 Output Total 700 1020 Balance 725 2158 Intake, IV 1425 3178 Output, 20 Emesis Output, Urine 700 1000 Patient 130 kg Weight Weight Bed scale Measurement Method Exam General Appearance: well developed/nourished, no apparent distress, alert, awake , comfortable Respiratory: normal breath sounds Cardiovascular: regular rate/rhythm Gastrointestinal: normal bowel sounds, soft Extremities: normal inspection Current Medications: Current Medications Sig/Catarino Start time Last Medication Dose Route Stop Time Status Admin Acetaminophen 650 MG Q6P PRN 12/02 2229 AC PO Acetaminophen 1,000 MG Q6P PRN 12/02 2229 AC IV Acetaminophen 650 MG Q6P PRN 12/02 2014 AC PO Calcium Acetate 667 MG ONCE ONE 12/03 544 DC 12/03 PO 12/03 0546 0835 Dextrose/Lactated 1,000 ML Q13H 12/03 929 AC Ringer's IV 12/03 1100 Enoxaparin Sodium 40 MG DAILY 12/03 899 AC 12/03 SC 0834 Insulin Human Regular 10 UNITS ONCE ONE 12/03 1999 DC 12/02 IV 12/02 Insulin Human Regular 100 UNIT Q24H 12/03 1999 AC 12/02 Sodium Chloride 100 ML IV 2022 Levothyroxine Sodium 50 MCG DAILY 12/02 2033 AC 12/03 IV 1025 [place] Carbonate 600 MG BID 12/03 0900 AC 12/03 PO 0845 Olanzapine 10 MG QPM 12/03 2100 AC PO Ondansetron HCl 0 .STK-MED ONE 12/03 0104 DC .ROUTE Ondansetron HCl 4 MG Q6P PRN 12/03 0100 AC 12/03 IV 0834 Ondansetron HCl 4 MG ONCE ONE 12/02 2145 DC 12/02 IV 12/02 2146 2209 Ondansetron HCl 4 MG ONCE ONE 12/02 1730 DC 12/02 IV 12/02 1731 1729 Ondansetron HCl 0 .STK-MED ONE 12/02 1718 CAN .ROUTE Ondansetron HCl 4 MG ONCE ONE 12/02 1715 CAN PO 12/02 1716 Oxycodone HCl 5 MG Q6P PRN 12/02 2230 AC PO Pantoprazole Sodium 40 MG BID 12/03 2100 AC IV Pantoprazole Sodium 40 MG DAILY 12/02 2200 DC 12/03 IV 0834 Potassium Chloride 40 MEQ Q13H 12/03 1100 AC Dextrose/Lactated 1,000 ML IV Ringer's Potassium Chloride 0 .STK-MED ONE 12/03 0312 DC IV Potassium Chloride 10 MEQ Q1H 12/03 0200 DC 12/03 IV 12/03 0301 0324 Potassium Chloride 10 MEQ Q1H 12/02 2215 DC 12/02 IV 12/02 2316 2336 Potassium Chloride 40 MEQ ONCE ONE 12/02 211 DC PO 12/02 2116 Potassium Chloride 40 MEQ Q13H 12/02 2115 DC 12/02 Dextrose/Sodium 1,000 ML IV 2126 Chloride Potassium Chloride 40 MEQ .[CONTINUOUS] 12/02 2100 CAN IV Potassium Chloride 40 MEQ Q13H 12/02 2000 DC 12/02 Sodium Chloride 1,000 ML IV 2039 Potassium Phosphate 15 mMol ONE ONE 12/03 0545 DC 12/03 Dextrose/Water 250 ML IV 12/03 0949 1024 Potassium Phosphate 15 mMol ONE ONE 12/03 0200 DC 12/03 Dextrose/Water 250 ML IV 12/03 0604 0300 Pravastatin Sodium 40 MG 1700 12/03 1700 CAN PO Sodium Bicarbonate 75 MEQ Q10H 12/02 2014 AC 12/03 Sodium Chloride 1,000 ML IV 0834 Sodium Bicarbonate 100 MEQ CONTINOUS INFUSION 09/08 2000 CAN Dextrose/Water 1,000 ML IV Sodium Chloride 3,810.18 ML ONCE ONE 12/02 1830 DC 12/02 IV 12/02 1831 2024 Sodium Chloride 0 ONCE ONE 12/02 1715 CAN IV 12/02 1716 Sodium Chloride 1,000 ML BOLUS ONE 12/02 1715 DC 12/02 IV 12/02 1814 1723 Trimethobenzamide HCl 0 .STK-MED ONE 12/02 1842 DC IM Trimethobenzamide HCl 200 MG ONCE ONE 12/02 1830 DC 12/02 IM 12/02 1831 1854 Impression/Plan Impression/Problem List Impression: Ms. Sanchez is a 52-year-old female with past medical history of diabetes mellitus, morbid obesity status post lap band procedure and subsequent reversal, obstructive sleep apnea on CPAP (noncompliant), GERD, hyperlipidemia, hypothyroidism, schizoaffective disorder, anxiety, and depression who presented last night with nausea and vomiting found to be in diabetic ketoacidosis. Plan: #Neurology: -Patient has significant psych history with history of inpatient psychiatric admissions -Abernathy level low at admission potentially due to noncompliance -Continue lithium, hold olanzapine for prolonged QTC -repeat lithium level in 3 days -Consider psychiatry consult -Pain control #Respiratory/cardiovascular: -Breathing well on room air -Normal sinus rhythm, no chest pain -QTc 555 #GI: -Significant nausea and vomiting secondary to DKA -Transaminitis is improving -Hepatitis serologies are pending -Continue pantoprazole and trimethobenzamide -Hold pravastatin #Table Tender: -Incidental adnexal mass seen on CT scan -Follow-up transvaginal ultrasound -Consider gynecology consult #Endocrinology: -Patient has history of type 2 diabetes mellitus and presents with diabetic ketoacidosis -Hemoglobin A1c pending -Anion gap is closed -Continue sodium bicarbonate drip while acidotic -Switch normal saline to LR given hyperchloremia -Replenish phosphorus and calcium -Repeat ICU bundle -Continue insulin drip at 4 units an hour and titrate per protocol -Endocrinology consult -N.p.o. while on insulin drip -TSH normal, continue levothyroxine #Hematology: -Patient has leukocytosis without bandemia, likely reactive -No signs of active infection DVT prophylaxis with enoxaparin N.p.o. Full code Problem List: 1. DKA (diabetic ketoacidoses) Pain Ratin Tomorrow's Labs & Rationales: yes Plan DVT/Prophylaxis: pharmacological
[2017-12-03 09:31] LABS: GRANULOCYTE % 86.1 % (42.2-75.2)
--- NOTE | 2017-12-03 11:47 | Cons- Endocrinology ---
General Information and HPI Consulting Request Date of Consult: 12/03/17 Requested By: ED History of Present Illness: This is a 52 Y old lady with diet controlled diabetes presented with nausea, vomitting, diarrhea, hyperglycemia and ketoacidosis. She used to take metformin at home. But it was stopped as her A1c was 5.8 at the beginning of this year. Her A1c in the hospital this time was over 11. Her father also has diabetes, unclear about the type. She is morbidly obese. She said that she has been eating a lot of high carb food recently. She has been started with IV insulin after admission, and is currently on 3 to 4 units of IV insulin per hour, with glucose in the 200 to 300 range. She is also on D5W LR 75ml/hour. She still feel nauseated now and is not able to tolerate food. Allergies/Medications Allergies: Coded Allergies: lamotrigine (From Lamictal) (Severe, RASH 06/03/17) shrimp (Severe, ANAPHYLAXIS 06/03/17) Fish Containing Products (ANAPHYLAXIS 06/03/17) divalproex sodium (From DEPAKOTE) (vomiting 06/03/17) telithromycin (VOMITING AND DIARRHEA 06/03/17) tetracycline (RASH ON HEAD, SCALP GETS REALLY DRY 06/03/17) topiramate (From TOPAMAX) (PER PT REPORTS HAS SIDE EFFECTS UNKNOWN 06/03/17) haloperidol (CATATONIC/DISTONIC 12/30/15 06/03/17) levofloxacin (SEVERE DIARRHEA 06/03/17) oxycodone (VOMITING 06/03/17) Home Med List: Bupropion HCl (Wellbutrin Sr) 100 MG TABLET.ER 100 MG PO 0800 depression Levothyroxine Sodium 100 MCG TABLET 1 TAB PO DAILY AC THYROID (Reported) [place] Carbonate 300 MG CAPSULE 2 CAP PO BID mood stabilizer Olanzapine 10 MG TABLET 10 MG PO QPM psychosis Pravastatin Sodium 40 MG TABLET 1 TAB PO DAILY CHOLESTEROL (Reported) Review of Systems Comments GENERAL/CONSTITUTIONAL: No fever. HEAD, EYES, EARS, NOSE AND THROAT: No loss of vision or loss of hearing CARDIOVASCULAR: No chest pain or shortness of breath RESPIRATORY: No cough or wheezing. GASTROINTESTINAL: nausea. MUSCULOSKELETAL: No muscle tenderness. SKIN: No hives NEUROLOGIC: No fainting or loss of consciousness PSYCHIATRIC: Alert and oriented. ENDOCRINE: see HPI. 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 FATHER (Diabetes). Psychosocial History Where Do You Live? Home Who Do You Live With? parent Services at Home: None Primary Language: Turkmen Smoking Status: Never Smoked Functional Ability ADLs Independent: dressing, eating, toileting, bathing. Ambulation: independent IADLs Independent: finances, food prep, telephone, transportation. Exam & Diagnostic Data Last 24 Hrs of Vital Signs/I&O Vital Signs Date Time Temp Pulse Resp B/P B/P Pulse O2 O2 Flow FiO2 Mean Ox Delivery Rate 12/03 08 96 Room Air Room Air 12/03 0800 97.9 76 18 138/68 96 Room Air Room Air 12/03 0400 95 Room Air 12/03 0000 95 Room Air 12/03 0000 96.8 85 30 140/50 97 Room Air 12/02 2240 98 Room Air Room Air 12/02 2145 97.6 92 20 132/70 98 Room Air 12/02 2046 98.2 97 22 133/65 99 Room Air 12/02 1909 Room Air 12/02 1908 98.1 95 20 168/74 98 Room Air 12/02 1652 97.7 101 18 130/82 98 Room Air Intake & Output 12/03 1600 12/03 0800 12/03 0000 Intake Total 1425 3178 Output Total 700 1020 Balance 725 2158 Intake, IV 1425 3178 Output, 20 Emesis Output, Urine 700 1000 Patient 287 lb Weight Weight Bed scale Measurement Method GENERAL APPEARANCE: obese, moderate distress from nausea and abdominal pain. SKIN: no hives, moist, no acanthosis nigricans in the back of the neck Eyes: conjunctivae were pink and moist. Extraocular movements were intact. ENT: External inspection of the ears and nose showed no masses. Normal hearing LUNGS: Auscultation of the lungs revealed normal breath sounds,normal breath effort. CARDIOVASCULAR: normal rate on auscultation. No ankle edema ABDOMEN: obese abdomen, no lipodystrophy MUSCULOSKELETAL: Gait was not assessed. Psychiatry: lethargic and oriented x 3. Stable mood Assessment/Plan Assessment/Plan This is a 52 Y old lady with diet controlled diabetes presented with nausea, vomitting, diarrhea, and was found to have DKA. Her diabetes has been poorly controlled based on A1c. She prefers to continue to follow her primary care after discharge Based on IV insulin dose, it seems that she will need more than 70 units daily at this time. Please start insulin Levemir 35 units, and continue IV insulin at the same time. Continue D5W LR at 75 ml/hr, so she will receive about 90 grams of dextrose a day. Continue to check glucose every hour. Supplement K Check anti-TYRONE and c-peptide, as it is less common for type 2 diabetes to present with ketoacidosis Once she is able to eat, please do the following: Stop IV insulin and IV dextrose Continue Levemir Check glucose ACHS Carbo level 1 diet Add meal time Novolog according to the following scale: 80-150 7 units 151-200 9 units 201-250 11 units 251-300 13 units 301-350 15 units 351-400 17 units >400 19 units Add night time Novolog according to the following scale: 80-150 0 units 151-200 2 units 201-250 4 units 251-300 6 units 301-350 8 units 351-400 10 units >400 12 units Will follow. Consult Acknowledgment - Thank you for your consult request.
--- NOTE | 2017-12-03 13:59 | ULTRASOUND REPORT ---
EXAMINATION: ULTRASOUND OF THE PELVIS CLINICAL INFORMATION: 52-year-old female with lower abdominal pain found to have 3.5 cm right adnexal hypodensity on the CT scan of the abdomen and pelvis done on 06/03/2017. For follow-up. COMPARISON: CT of the abdomen and pelvis done on 06/03/2017 and pelvic ultrasound done on 04/18/2017. TECHNIQUE: Transabdominal and transvaginal pelvic ultrasound. FINDINGS: The uterus is normal in size and appearance, measuring 8.3 x 3.8 x 3.3 cm longitudinally, anteroposteriorly and transversely. The endometrial stripe thickness is normal, measuring 1.0 cm in thickness. The cervical length measures 2.7 cm. No focal myometrial mass is seen. The left ovary is visualized, measures 4.2 x 2.6 x 2.9 cm, shows a dominant 3.3 cm simple appearing follicle, previously measured 2.2 x 1.6 x 1.8 cm on the study dated 04/18/2017. The right ovary is not definitely identified however, there is a septated avascular cystic mass visualized in the region of the right adnexa, measures 4.6 x 3.1 cm at its maximum dimension, previously measures approximately 3.6 x 1.8 cm, given the slight subjective difference in measurement, appears stable. A transvaginal study was performed in addition to the transabdominal study which did not yield an adequate examination of the uterus and ovaries due to superimposed distended gas-filled loops of bowel. IMPRESSION: 1. Sonographically unremarkable uterus and left ovary. 2.. 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
[2017-12-03 15:30] LABS: PT 11.9 SEC (9.4-12.5)
[2017-12-03 16:00] VITALS: BP 130/62
--- NOTE | 2017-12-03 18:02 | Cons- Gastroenterology ---
General Information and HPI Consulting Request Date of Consult: 12/03/17 Requested By: Kota Perez MD Reason for Consult: 1. Nausea and Vomiting 2. Abnormal CT Scan of the Abdomen 3. Gastroesophagea Reflux Source of Information: Electronic Medical Records Exam Limitations: poor historian History of Present Illness: Ms. Sanchez is a 52 yo F with PMH of morbid obesity s/p bariatric surgery, diabetes mellitus, hypothyroidism, hypertension, hyperlipidemia, obstructive sleep apnea on CPAP, GERD, lschizoaffective disorder (depressed type with suicidality) for which she has had multiple [facility] Admissions, and bipolar disorder. GI is asked to see Ms. Sanchez in consultation for evaluation of nausea and vomiting as well as a CT Scan showing thickening of the distal two thirds of the esophagus. History is obtained from the medical record as patient is a poor historian. She is lethargic and is still in Diabetic Ketoacidosis. On admission she had an HCO3 of 7 which has increased to 13. Her AB G on admission was 7.12/16/109/15. Her AST/ALT was 51/58. Her PT/INR was 11.9/1.09. WBC were 14.7 with an H/H of 13.0/39.2, with 240,000. Patient believes that she developed nausea and vomiting 3 days before presentation after eating chicken and pasta. However, she rhad had malaise for almost 3 weeks, and diarrhea (loose and watery) for one week. She had stopped her hypoglycemic agents because she had been told that her blood glucoses were normal. CT Scan of the Abdomen with contrast is as follows: FINDINGS: LUNGS: The lungs are normally expanded. No focal pulmonary opacity, suspicious pulmonary nodule or pulmonary mass. No pleural effusion. No pneumothorax. MEDIASTINUM: The cardiac size is within normal limits. No pericardial effusion. The thoracic aorta and pulmonary artery are normal in diameter. The trachea and shira are patent and unremarkable. There is diffuse moderate thickening of the wall of the thoracic esophagus, starting shortly above the level of the shira and extends to the gastroesophageal junction. No mediastinal, hilar or axillary adenopathy noted. There is a 1.0 cm soft tissue nodule with adjacent metallic density in the lateral left breast. This corresponds with the stable mass at 3 o'clock position of the left breast seen on prior mammograms and ultrasound dated back to 08/03/2011. The metallic density represents the ribbon-shaped biopsy clip seen on 07/20/2017 mammogram. LIVER, GALLBLADDER, AND BILIARY TREE: The liver is enlarged and demonstrates significant decrease parenchymal density. It measures about 27 cm in maximum CC dimension. There are patchy areas of denser hepatic parenchyma in the subcapsular part of the anterior left lobe, subcapsular lateral right lobe it could represent areas of fatty sparing. The findings are more prominent than the May 2017 CT scan. No biliary ductal dilatation noted. The portal vein opacifies homogeneously. The gallbladder is unremarkable with no evidence of radiopaque gallstones, gallbladder wall thickening, or obvious pericholecystic inflammatory changes. PANCREAS: Unremarkable. SPLEEN: Unremarkable. ADRENAL GLANDS: Unremarkable. KIDNEYS AND URETERS: The kidneys are normal in size, shape, and attenuation. No hydronephrosis, hydroureter, or calculi seen. No perinephric stranding. BLADDER: Unremarkable. GASTROINTESTINAL TRACT: Thickening of the wall of the distal two thirds of the thoracic esophagus with extension to the gastroesophageal junction. The stomach is normally distended. The duodenum, small bowel loops and colon are not dilated. Colon diverticulosis noted without evidence of acute diverticulitis. There is no free fluid or free air in the abdomen or pelvis. The appendix is visualized and without evidence of acute appendicitis. ABDOMINAL WALL: No significant hernia is appreciated. LYMPH NODES: No retroperitoneal, mesenteric or pelvic sidewall adenopathy. VASCULAR: Unremarkable. PELVIC VISCERA: There is a 2.9 cm left adnexal mass. There is a 5.0 x 3.0 x 3.5 cm soft tissue mass in the pelvis, just located posterior and superior to the urinary bladder as seen on axial image 783 from series 4, coronal image 64 and sagittal image 88. It could represent an adnexal mass versus a mesenteric mass. OSSEOUS STRUCTURES: No aggressive bony lesion. IMPRESSION: 1. Moderate thickening of the wall of the distal two thirds of the thoracic esophagus. Inflammatory versus neoplastic etiologies could be considered and clinically evaluated. 2. Severe hepatomegaly and hepatic parenchymal disease such as hepatic steatosis. Clinical and lab correlation is suggested. 3. A 5.0 x 3.0 x 3.5 cm soft tissue mass in the pelvic cavity, just posterior and superior to the bladder, could represent an adnexal mass versus a mesenteric mass. There is also a 2.9 cm left adnexal mass. Sonographic correlation can be considered. 3. Colon diverticulosis without evidence of acute diverticulitis. A pelvic and transvaginal ultrasound was done. The results are as follows: MPRESSION: 1. Sonographically unremarkable uterus and left ovary. 2.. 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 Allergies/Medications Allergies: Coded Allergies: lamotrigine (From Lamictal) (Severe, RASH 06/03/17) shrimp (Severe, ANAPHYLAXIS 06/03/17) Fish Containing Products (ANAPHYLAXIS 06/03/17) divalproex sodium (From DEPAKOTE) (vomiting 06/03/17) telithromycin (VOMITING AND DIARRHEA 06/03/17) tetracycline (RASH ON HEAD, SCALP GETS REALLY DRY 06/03/17) topiramate (From TOPAMAX) (PER PT REPORTS HAS SIDE EFFECTS UNKNOWN 06/03/17) haloperidol (CATATONIC/DISTONIC 12/30/15 06/03/17) levofloxacin (SEVERE DIARRHEA 06/03/17) oxycodone (VOMITING 06/03/17) Home Med List: Bupropion HCl (Wellbutrin Sr) 100 MG TABLET.ER 100 MG PO 0800 depression Levothyroxine Sodium 100 MCG TABLET 1 TAB PO DAILY AC THYROID (Reported) Carnot-Moon Carbonate 300 MG CAPSULE 2 CAP PO BID mood stabilizer Olanzapine 10 MG TABLET 10 MG PO QPM psychosis Pravastatin Sodium 40 MG TABLET 1 TAB PO DAILY CHOLESTEROL (Reported) Current Medications: Current Medications Sig/Catarino Start time Last Medication Dose Route Stop Time Status Admin Acetaminophen 1,000 MG Q12 PRN 12/03 1106 AC IV Acetaminophen 650 MG Q6P PRN 12/02 2230 DC PO Acetaminophen 1,000 MG Q6P PRN 12/02 2230 DC IV Acetaminophen 650 MG Q6P PRN 12/02 2014 DC PO Calcium Acetate 667 MG ONCE ONE 12/03 0545 DC 12/03 PO 12/03 0546 0835 Dextrose/Lactated 1,000 ML Q13H 12/03 0930 DC Ringer's IV 12/03 1100 Enoxaparin Sodium 40 MG DAILY 12/03 0900 AC 12/03 SC 0834 Insulin Aspart 0 AT BEDTIME 12/03 2100 AC SC Insulin Aspart 0 TIDAC 12/03 1700 AC 12/03 SC 1732 Insulin Detemir 35 UNITS DAILY 12/04 899 AC SC Insulin Detemir 35 UNITS ONCE ONE 12/03 1130 DC 12/03 SC 12/03 1131 1146 Insulin Human Regular 10 UNITS ONCE ONE 12/03 1999 DC 12/02 IV 12/02 Insulin Human Regular 100 UNIT Q24H 12/03 1999 DC 12/02 Sodium Chloride 100 ML IV 2023 Levothyroxine Sodium 50 MCG DAILY 12/02 203 AC 12/03 IV 1025 Carnot-Moon Carbonate 600 MG BID 12/03 09 AC 12/03 PO 0845 Nystatin 1 TRANG TID 12/03 1400 AC 12/03 TOP 1238 Olanzapine 10 MG QPM 12/03 2100 CAN PO Ondansetron HCl 4 MG Q6P PRN 12/03 1145 AC IV Ondansetron HCl 0 .STK-MED ONE 12/03 0104 DC .ROUTE Ondansetron HCl 4 MG Q6P PRN 12/03 0100 DC 12/03 IV 0834 Ondansetron HCl 4 MG ONCE ONE 12/02 2145 DC 12/02 IV 12/02 2146 2209 Oxycodone HCl 5 MG Q6P PRN 12/02 2230 DC PO Pantoprazole Sodium 40 MG BID 12/03 2100 AC IV Pantoprazole Sodium 40 MG DAILY 12/02 2200 DC 12/03 IV 0834 Potassium Chloride 80 MEQ ONCE ONE 12/03 1630 DC PO 12/03 1631 Potassium Chloride 40 MEQ Q13H 12/03 1100 AC 12/03 Dextrose/Lactated 1,000 ML IV 1235 Ringer's Potassium Chloride 0 .STK-MED ONE 12/03 0312 DC IV Potassium Chloride 10 MEQ Q1H 12/03 0200 DC 12/03 IV 12/03 0301 0324 Potassium Chloride 10 MEQ Q1H 12/02 2215 DC 12/02 IV 12/02 2316 2336 Potassium Chloride 40 MEQ ONCE ONE 12/02 211 DC PO 12/02 2116 Potassium Chloride 40 MEQ Q13H 12/02 2115 DC 12/02 Dextrose/Sodium 1,000 ML IV 2126 Chloride Potassium Chloride 40 MEQ .[CONTINUOUS] 12/02 2100 CAN IV Potassium Chloride 40 MEQ Q13H 12/03 1999 DC 12/02 Sodium Chloride 1,000 ML IV 2039 Potassium Phosphate 15 mMol ONE ONE 12/03 0545 DC 12/03 Dextrose/Water 250 ML IV 12/03 0949 1024 Potassium Phosphate 15 mMol ONE ONE 12/03 0200 DC 12/03 Dextrose/Water 250 ML IV 12/03 0604 0300 Pravastatin Sodium 40 MG 1700 12/03 1700 CAN PO Sodium Bicarbonate 75 MEQ Q10H 12/02 2014 AC 12/03 Sodium Chloride 1,000 ML IV 0834 Sodium Bicarbonate 100 MEQ CONTINOUS INFUSION 12/02 2000 CAN Dextrose/Water 1,000 ML IV Sodium Chloride 3,810.18 ML ONCE ONE 12/02 1830 DC 12/02 IV 12/02 1831 2024 Sodium Chloride 1,000 ML BOLUS ONE 12/02 1715 DC 12/02 IV 12/02 1814 1723 Trimethobenzamide HCl 200 MG 4 TIMES/DAY PRN 12/03 1045 AC IM Trimethobenzamide HCl 0 .STK-MED ONE 12/02 1842 DC IM Trimethobenzamide HCl 200 MG ONCE ONE 12/02 1830 DC 12/02 IM 12/02 1831 1854 Past History Travel History Traveled to [place] past 21 day No Medical History Neurological: NONE EENT: allergies, rhinitis, sinusitis, LARYNGEAL CYSTS Cardiovascular: hyperlipidemia Respiratory: asthma, bronchitis, obstructive sleep apnea, allergies Gastrointestinal: GERD Hepatic: NONE Renal: NONE Musculoskeletal: NONE Psychiatric: anxiety, bipolar disease, depression, insomnia, schizo affective disorder (depressed, with suicidality) Endocrine: hypothyroidism, obesity, diet controlled diabetes Blood Disorders: NONE Cancer(s): NONE 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 FATHER (Diabetes). Psychosocial History Where Do You Live? Home Who Do You Live With? parent Services at Home: None Primary Language: Chinese Smoking Status: Never Smoked Functional Ability ADLs Independent: dressing, eating, toileting, bathing. Ambulation: independent IADLs Independent: finances, food prep, telephone, transportation. Review of Systems Review of Systems: Unable to obtain Exam & Diagnostic Data Vital Signs and I&O Vital Signs Date Time Temp Pulse Resp B/P B/P Pulse O2 O2 Flow FiO2 Mean Ox Delivery Rate 12/03 1200 94 Room Air Room Air 12/04 799 96 Room Air Room Air 12/04 799 97.9 76 18 138/68 96 Room Air Room Air 12/03 0400 95 Room Air 12/03 0000 95 Room Air 12/03 0000 96.8 85 30 140/50 97 Room Air 12/02 2240 98 Room Air Room Air 12/02 2145 97.6 92 20 132/70 98 Room Air 12/02 2046 98.2 97 22 133/65 99 Room Air 12/02 1909 Room Air 12/02 1908 98.1 95 20 168/74 98 Room Air Intake & Output 12/03 040 Intake Total 2339 3178 Output Total 850 1020 Balance 1489 2158 Intake, IV 2289 3178 Intake, Oral 50 Output, 20 Emesis Output, Urine 850 1000 Patient 287 lb Weight Weight Bed scale Measurement Method Physical Exam General Appearance: lethargic, moderate distress Head: normal appearance Ears, Nose, Throat: hearing grossly normal Neck: full range of motion Respiratory: lungs clear Cardiovascular: regular rate/rhythm, Normal S1 and S2, without rub, murmur or gallop Gastrointestinal: soft, non-tender, obese Neurologic/Psych: lethargic Skin: pallor Results Pertinent Lab Results: Laboratory Tests 12/03 12/03 12/03 12/03 12/03 1345 1000 0936 0900 0730 Chemistry Sodium (137 - 145 mmol/L) 145 Cancelled 143 Potassium (3.5 - 5.1 mmol/L) 3.0 L Cancelled 3.2 L Chloride (98 - 107 mmol/L) 118 H Cancelled 118 H Carbon Dioxide (22 - 30 mmol/L) 14 L Cancelled 12 L Anion Gap (5 - 16) 13 Cancelled 13 BUN (7 - 17 mg/dL) 6 L Cancelled 7 Creatinine (0.5 - 1.0 mg/dL) 0.7 Cancelled 0.7 Estimated GFR (>60 ml/min) > 60 > 60 Glucose (65 - 99 mg/dL) 225 H Cancelled 276 H C-Peptide Pending Lactic Acid (0.7 - 2.1 mmol/L) 1.1 Calcium (8.4 - 10.2 mg/dL) 8.0 L Cancelled 7.5 L Phosphorus (2.5 - 4.5 mg/dL) 1.0 L Cancelled 1.3 L Magnesium (1.6 - 2.3 mg/dL) 2.7 H Cancelled 2.6 H Total Bilirubin (0.2 - 1.3 mg/dL) 0.2 Cancelled 0.3 AST (14 - 36 U/L) 51 H Cancelled 54 H ALT (9 - 52 U/L) 58 H Cancelled 64 H Albumin (3.5 - 5.0 g/dL) 3.8 Cancelled 3.4 L Coagulation PT (9.4 - 12.5 SEC) 11.9 INR (0.90 - 1.19) 1.09 Immunology TYRONE Antibody Pending Toxicology Acetaminophen (10.0 - 30.0 ug/mL) < 10.0 L 09 0912/03 0600 0600 0500 Hematology CBC w Diff Cancelled NO MAN DIFF REQ Cancelled WBC (4.8 - 10.8 /CUMM) Cancelled 14.7 H Cancelled RBC (4.20 - 5.40 /CUMM) Cancelled 4.31 Cancelled Hgb (12.0 - 16.0 G/DL) Cancelled 13.0 Cancelled Hct (37 - 47 %) Cancelled 39.2 Cancelled MCV (81.0 - 99.0 FL) Cancelled 91.1 Cancelled MCH (27.0 - 31.0 PG) Cancelled 30.3 Cancelled MCHC (33.0 - 37.0 G/DL) Cancelled 33.2 Cancelled RDW (11.5 - 14.5 %) Cancelled 13.8 Cancelled Plt Count (130 - 400 /CUMM) Cancelled 240 Cancelled MPV (7.4 - 10.4 FL) Cancelled 10.6 H Cancelled Gran % (42.2 - 75.2 %) 86.1 H Lymphocytes % (20.5 - 51.1 %) 6.7 L Monocytes % (1.7 - 9.3 %) 7.1 Eosinophils % (0 - 5 %) 0 Basophils % (0.0 - 2.0 %) 0.1 Absolute Granulocytes (1.4 - 6.5 /CUMM) 12.7 H Absolute Lymphocytes (1.2 - 3.4 /CUMM) 1.0 L Absolute Monocytes (0.10 - 0.60 /CUMM) 1.0 H Absolute Eosinophils (0.0 - 0.7 /CUMM) 0 Absolute Basophils (0.0 - 0.2 /CUMM) 0 12/03 12/03 12/02 12/02 0440 0045 2124 212 Chemistry Sodium (137 - 145 mmol/L) 144 142 141 Potassium (3.5 - 5.1 mmol/L) 3.7 3.2 L 3.1 L Chloride (98 - 107 mmol/L) 119 H 116 H 113 H Carbon Dioxide (22 - 30 mmol/L) 9 *L 8 *L < 5.0 *L Anion Gap (5 - 16) 16 18 H 22 H BUN (7 - 17 mg/dL) 7 8 9 Creatinine (0.5 - 1.0 mg/dL) 0.7 0.8 0.9 Estimated GFR (>60 ml/min) > 60 > 60 > 60 BUN/Creatinine Ratio (7 - 25 %) 10.0 Glucose (65 - 99 mg/dL) 273 H 273 H Lactic Acid (0.7 - 2.1 mmol/L) 2.2 H Calcium (8.4 - 10.2 mg/dL) 7.7 L 7.8 L Phosphorus (2.5 - 4.5 mg/dL) 1.1 L 1.5 L 2.0 L Magnesium (1.6 - 2.3 mg/dL) 2.6 H 2.6 H 2.6 H Total Bilirubin (0.2 - 1.3 mg/dL) 0.3 0.2 0.2 Direct Bilirubin (< 0.4 mg/dL) 0.2 AST (14 - 36 U/L) 68 H 81 H 89 H ALT (9 - 52 U/L) 72 H 65 H 67 H Alkaline Phosphatase (<127 U/L) 105 Total Protein (6.3 - 8.2 g/dL) 6.9 Albumin (3.5 - 5.0 g/dL) 3.8 4.0 4.3 Serology Hepatitis A IgM Ab (NONREACTIVE) NONREACTIVE Hep Bs Antigen (NONREACTIVE) NONREACTIVE Hep B Core IgM Ab Conf (NONREACTIVE) NONREACTIVE Hepatitis C Antibody (NONREACTIVE) NONREACTIVE 12/02 Blood Gas pH (7.35 - 7.45 PH) 7.12 *L pCO2 (35 - 45 TORR) 16 L pO2 (80 - 100 TORR) 109 H HCO3 (21 - 28 MEQ/L) 5 L ABG O2 Sat (Measured) (>96.0 %) 97.0 P-50 (Temp Corrected) N Carboxyhemoglobin (1.5 - 5.0 %) 0.7 L O2 Concentration % R/A Temperature (97.0 - 100.0 FARH) 98.1 Miscellaneous Phlebotomy Draw Site RIGHT RADIAL Toxicology Urine Opiates Screen (>2000 NG/ML) < 100 Methadone Screen (>300 NG/ML) < 40 Barbiturate Screen (>200 NG/ML) < 60 Ur Phencyclidine Scrn (>25 NG/ML) < 6.00 Amphetamines Screen (>1000 NG/ML) 102 U Benzodiazepines Scrn (>200 NG/ML) < 85 Urine Cocaine Screen (>300 NG/ML) < 50 Urine Cannabis Screen (>50 NG/ML) < 5.00 Urines Urinalysis LIGHT H Urine Color (YEL,AMB,STR) YEL Urine Clarity (CLEAR) CLEAR Urine pH (5.0 - 8.0) 6.0 Ur Specific [place] (1.001 - 1.035) >= 1.030 Urine Protein (NEG,<30 MG/DL) 100 H Urine Ketones (NEG) >=80 Urine Nitrite (NEG) NEG Urine Bilirubin (NEG) NEG@ICTO Urine Urobilinogen (0.1 - 1.0 EU/dl) 0.2 Ur Leukocyte Esterase (NEG) NEG Ur Microscopic SEDIMENT EXAMINED Urine RBC (0 - 5 /HPF) 1-3 Urine WBC (0 - 2 /HPF) 1-3 H Ur Epithelial Cells (NONE,FEW) FEW Urine Bacteria (NEG/NONE) FEW H Hyaline Casts (0/LPF) 1-3 H Granular Casts (NONE /LPF) RARE H Urine Mucus (FEW,NONE) FEW Urine Hemoglobin (NEG) MOD H Urine Glucose (N MG/DL) >=1000 H 12/02 12/02 1826 1824 Chemistry Troponin I Cancelled Toxicology Acetone Level Cancelled 12/02 1721 Chemistry Sodium (137 - 145 mmol/L) 138 Potassium (3.5 - 5.1 mmol/L) 3.6 Chloride (98 - 107 mmol/L) 105 Carbon Dioxide (22 - 30 mmol/L) 8 *L Anion Gap (5 - 16) 25 H BUN (7 - 17 mg/dL) 9 Creatinine (0.5 - 1.0 mg/dL) 0.9 Estimated GFR (>60 ml/min) > 60 BUN/Creatinine Ratio (7 - 25 %) 10.0 Glucose (65 - 99 mg/dL) 424 H Hemoglobin A1c (4.2 - 5.8 %) 11.6 H Lactic Acid (0.7 - 2.1 mmol/L) 1.3 Calcium (8.4 - 10.2 mg/dL) 8.8 Magnesium (1.6 - 2.3 mg/dL) 2.7 H Total Bilirubin (0.2 - 1.3 mg/dL) 0.5 AST (14 - 36 U/L) 97 H ALT (9 - 52 U/L) 81 H Alkaline Phosphatase (<127 U/L) 130 H Troponin I (< 0.11 ng/ml) < 0.01 Total Protein (6.3 - 8.2 g/dL) 8.2 Albumin (3.5 - 5.0 g/dL) 5.0 Globulin (1.9 - 4.2 gm/dL) 3.2 Albumin/Globulin Ratio (1.1 - 2.2 %) 1.6 Lipase (23 - 300 U/L) 105 TSH &T3 &Free T4 Intrp (0.270 - 4.20 uIU/mL) 0.814 Hematology CBC w Diff MAN DIFF ORDERED WBC (4.8 - 10.8 /CUMM) 19.3 H RBC (4.20 - 5.40 /CUMM) 5.12 Hgb (12.0 - 16.0 G/DL) 15.6 Hct (37 - 47 %) 46.5 MCV (81.0 - 99.0 FL) 91.0 MCH (27.0 - 31.0 PG) 30.4 MCHC (33.0 - 37.0 G/DL) 33.4 RDW (11.5 - 14.5 %) 13.4 Plt Count (130 - 400 /CUMM) 343 MPV (7.4 - 10.4 FL) 10.0 Gran % (42.2 - 75.2 %) 87.8 H Lymphocytes % (20.5 - 51.1 %) 8.3 L Monocytes % (1.7 - 9.3 %) 3.7 Eosinophils % (0 - 5 %) 0.1 Basophils % (0.0 - 2.0 %) 0.1 Absolute Granulocytes (1.4 - 6.5 /CUMM) 16.9 H Segmented Neutrophils (42.2 - 75.2 %) 85 H Band Neutrophils (0.0 - 5.0 %) 2 Absolute Lymphocytes (1.2 - 3.4 /CUMM) 1.6 Lymphocytes (20.5 - 51.1 %) 8 L Monocytes (1.7 - 9.3 %) 5 Absolute Monocytes (0.10 - 0.60 /CUMM) 0.7 H Absolute Eosinophils (0.0 - 0.7 /CUMM) 0 Absolute Basophils (0.0 - 0.2 /CUMM) 0 Platelet Estimate (ADEQUATE) ADEQUATE Normocytic RBCs VERIFIED Normochromic RBCs VERIFIED Other Body Source Fld Total RBCs Counted (%) 100 Toxicology Carnot-Moon (0.6 - 1.2 mmol/L) 0.2 L Acetone Level (NEGATIVE) POSITIVE AT 1:32 DIL Assessment/Plan Assessment/Recommendations: ASSESSMENT: 1. Nausea and Vomiting -- Likely due to a combination of diabetes out of control as well as gastroesophageal reflux in the setting of a markedly reduced gastric pouch. 2. Diabetic ketoacidosis with a persistent decrease in serum bicarbonate 3. Gastroesophageal Reflux 4. Abnormal CT Scan of the Abdomen-- thickening of the distal 2/3 of the esophagus likely reactive due to persistent nausea and vomiting as per #1 RECOMMENDATIONS: 1. Protonix 40 mg IV twice daily 2. Treat diabetic ketoacidosis 3. If patient improved with respect to diabetic ketoacidosis can consider esophagogastroduodenoscopy tomorrow. However patient will need to be n.p.o. after midnight I have discussed this plan with the house officers as well as with the patient herself. Consult Acknowledgment - Thank you for your consult request.
[2017-12-04] VITALS: BP 130/60
[2017-12-04 04:42] LABS: ABSOLUTE BASOPHIL COUNT 0.1 /CUMM (0.0-0.2); ABSOLUTE EOSINOPHIL COUNT 0 /CUMM (0.0-0.7); ABSOLUTE GRANULOCYTE CT 11.1 /CUMM (1.4-6.5); ABSOLUTE MONOCYTE COUNT 0.7 /CUMM (0.10-0.60); EOSINOPHIL % 0.1 % (0-5); GRANULOCYTE % 85.8 % (42.2-75.2); HEMATOCRIT 38.5 % (37-47); MEAN CORPUSCULAR HGB 30.3 PG (27.0-31.0); MEAN CORPUSCULAR HGB CONC 33.8 G/DL (33.0-37.0); MEAN CORPUSCULAR VOLUME 89.8 FL (81.0-99.0); MEAN PLATELET VOLUME 10.6 FL (7.4-10.4); PLATELET COUNT 211 /CUMM (130-400); RBC DISTRIBUTION WIDTH 13.5 % (11.5-14.5); RED BLOOD CELL CT 4.28 /CUMM (4.20-5.40); WHITE BLOOD CELL COUNT 12.9 /CUMM (4.8-10.8)
--- NOTE | 2017-12-04 07:17 | PN- Resident CRCU ---
Jerardo Sellers 12/04/1717: Subjective HPI/CRCU Issues: DKA, off insulin drip, gap closed Low bicarbonate levels (<5), now off bicarb drip 24 Hour Events: Patient was placed n.p.o. for endoscopy today. Bicarb drip was discontinued. Patient continues to complain of nausea and vomiting, states that she does not have any diarrhea and has not had any bowel movements since she has been here. States that she is "angry" as she wishes that she would stop being nauseous. Continually apologizes for feeling nauseous, was reassured. Asks why her doctor had discontinued metformin for her. Denies fevers/chills/night sweats/chest pain/urinary symptoms/lower extremity edema Objective Vital Signs & I&O Last 8 Hrs of Vitals and I&O: Intake & Output 12/04 08 Intake Total 940 Output Total 1999 Balance -1060 Intake, IV 840 Intake, Oral 100 Output, Urine 1999 Exam General Appearance: well developed/nourished, alert, awake, anxious, mild distress, obese Head: atraumatic Ears, Nose, Throat: normal pharynx Respiratory: normal breath sounds, lungs clear Cardiovascular: regular rate/rhythm, normal peripheral pulses Gastrointestinal: soft, non-tender, obese Extremities: normal inspection, no edema Skin: intact Skin Temp/Moisture Exam: Warm/Dry Current Medications: Current Medications Sig/Catarino Start time Last Medication Dose Route Stop Time Status Admin Acetaminophen 1,000 MG Q12 PRN 12/03 1106 AC IV Acetaminophen 650 MG Q6P PRN 12/02 2230 DC PO Acetaminophen 1,000 MG Q6P PRN 12/02 2230 DC IV Acetaminophen 650 MG Q6P PRN 12/02 2015 DC PO Dextrose/Lactated 1,000 ML Q13H 12/03 0930 DC Ringer's IV 12/03 1100 Enoxaparin Sodium 40 MG DAILY 12/03 0900 AC 12/03 AR 0834 Insulin Aspart 0 Q6 12/04 1200 AC 12/04 AR 0750 Insulin Aspart 0 .STK-MED ONE 12/04 075 DC SC Insulin Aspart 0 AT BEDTIME 12/03 2100 DC 12/03 AR 2159 Insulin Aspart 0 TIDAC 12/03 1700 DC 12/03 AR 1732 Insulin Detemir 35 UNITS DAILY 09/10 0900 AC SC Insulin Detemir 35 UNITS ONCE ONE 12/03 1130 DC 12/03 SC 12/03 1131 1146 Insulin Human Regular 100 UNIT Q24H 12/03 1999 DC 12/02 Sodium Chloride 100 ML IV 202 Levothyroxine Sodium 50 MCG DAILY 12/02 203 AC 12/03 IV 1025 [place] Carbonate 600 MG BID 12/03 0900 AC 12/03 PO 2202 Nystatin 1 TRANG TID 12/03 1400 AC 12/03 TOP 2119 Olanzapine 10 MG QPM 12/03 2100 CAN PO Ondansetron HCl 4 MG Q6P PRN 12/03 1145 AC 12/04 IV 0738 Ondansetron HCl 4 MG Q6P PRN 12/03 0100 DC 12/03 IV 0834 Oxycodone HCl 5 MG Q6P PRN 12/02 2230 DC PO Pantoprazole Sodium 40 MG BID 12/03 2100 AC 12/03 IV 2120 Pantoprazole Sodium 40 MG DAILY 12/02 2200 DC 12/03 IV 0834 Potassium Chloride 80 MEQ Q10H 12/04 0745 AC Dextrose/Lactated 1,000 ML IV Ringer's Potassium Chloride 0 .STK-MED ONE 12/04 0518 DC IV Potassium Chloride 10 MEQ Q1H 12/04 0515 DC 12/04 IV 12/04 0616 0738 Potassium Chloride 40 MEQ ONCE ONE 12/04 0515 CAN PO 12/04 0516 Potassium Chloride 80 MEQ ONCE ONE 12/03 1630 DC PO 12/03 1631 Potassium Chloride 40 MEQ Q13H 12/03 1100 DC 12/04 Dextrose/Lactated 1,000 ML IV 0145 Ringer's Potassium Chloride 40 MEQ Q13H 12/02 2115 DC 12/02 Dextrose/Sodium 1,000 ML IV 2126 Chloride Potassium Phosphate 15 mMol ONE ONE 12/03 0545 DC 12/03 Dextrose/Water 250 ML IV 12/03 0949 1024 Pravastatin Sodium 40 MG 1700 12/03 1700 CAN PO Sodium Bicarbonate 75 MEQ Q10H 12/02 2014 DC 12/04 Sodium Chloride 1,000 ML IV 0513 Trimethobenzamide HCl 200 MG 4 TIMES/DAY PRN 12/03 1045 AC IM Impression/Plan Impression/Problem List Impression: Ms. Sanchez is a 52-year-old female with past medical history of diabetes mellitus, morbid obesity status post lap band procedure and subsequent reversal, obstructive sleep apnea on CPAP (noncompliant), GERD, hyperlipidemia, hypothyroidism, schizoaffective disorder, anxiety, and depression who presented last night with nausea and vomiting found to be in diabetic ketoacidosis. Plan: #Respiratory - stable -Breathing well on room air #Infectious Disease - stable Afebrile, Tmax 98.0; Blood + Urine cultures NGTD WBC at 12.9, trending down from 14.7, 19.3 on admission; no bands on diff #Cardiovascular - stable NSR on monitor; had 13 beats of tachycardia overnight with one PVC, self resolved QTC in 430s today Pressures 130-140/50-70 #Hematology: -H/H 13.0/38.5 #Metabolic/Endocrinology: -Patient has history of type 2 diabetes mellitus and presents with diabetic ketoacidosis -Hemoglobin A1c 11.6 -Anion gap is closed -sodium bicarbonate drip discontinued this morning -Switch normal saline to LR with 80mEq potassium as K is 2.6 this morning -Replenish phosphorus and calcium, if patient tolerates PO will give PO potassium -Repeat ICU bundle at 10am -Off insulin drip at this time -Endocrinology recs appreciated -TSH normal, continue levothyroxine #Alimentary NPO pending endoscopy today GI recs appreciated Continues to have nausea without vomiting; on Protonix 40mg IV BID #Neurology: -Patient has significant psych history with history of inpatient psychiatric admissions -[place] level low at admission potentially due to noncompliance -Continue lithium, hold olanzapine for prolonged QTC -repeat lithium level in 2 days -Consider psychiatry consult -Pain control #Nephro: BUN/Cr unremarkable. Denies urinary symptoms. #GI: -Significant nausea and vomiting secondary to DKA -Transaminitis is improving -Hepatitis serologies are nonreactive -Continue pantoprazole and trimethobenzamide -Hold pravastatin #Vibration Technician: -Incidental adnexal mass seen on CT scan -TVUS shows no change in mass from previous; no comment with regards to second mass. -Will hold off on PROOF COIN COLLECTOR consult at this time DVT prophylaxis with enoxaparin N.p.o. Full code Problem List: 1. Anxiety 2. DKA (diabetic ketoacidoses) Pain Ratin Tomorrow's Labs & Rationales: BEP/bundle Plan DVT/Prophylaxis: pharmacological Steph HOFFMAN,[facility] 12/04/17 1019: Attending MD Review Statement Attending Sign Off Attending Cosign Statement: I have: examined this patient, reviewed al EMR data, personally reviewd images, discussd w/resident/PA/LASERIST, discussed mgmt plan w/med, discussed mgmt plan w/CM, discussed mgmt plan w/pt, agreed w/resident/PA/LASERIST, amended to note. Other Findings: General Appearance: well developed/nourished, no apparent distress, alert, awake , comfortable Respiratory: normal breath sounds Cardiovascular: regular rate/rhythm Gastrointestinal: normal bowel sounds, soft Extremities: normal inspection IMPRESSION: 1. Moderate thickening of the wall of the distal two thirds of the thoracic esophagus. Inflammatory versus neoplastic etiologies could be considered and clinically evaluated. 2. Severe hepatomegaly and hepatic parenchymal disease such as hepatic steatosis. Clinical and lab correlation is suggested. 3. A 5.0 x 3.0 x 3.5 cm soft tissue mass in the pelvic cavity, just posterior and superior to the bladder, could represent an adnexal mass versus a mesenteric mass. There is also a 2.9 cm left adnexal mass. Sonographic correlation can be considered. 3. Colon diverticulosis without evidence of acute diverticulitis. Ms. Sanchez is a 52-year-old female with past medical history of diabetes mellitus, morbid obesity status post lap band procedure and subsequent reversal, Obstructive sleep apnea on CPAP (noncompliant), GERD, hyperlipidemia, hypothyroidism, schizoaffective disorder, anxiety, and depression who presented last night with nausea and vomiting found to be in diabetic ketoacidosis. Issues DKA resolved Nausea with vomiting from dka improving Electrolyte abnormalities High qtc better Adenexal mass stable Severe hepatomegaly, Thickened esopahgus needs eval when pt is stable PLAN As noted above Insulin per endo Agg potassium replacement Check qtc daily stable PPI
[2017-12-04 08:00] VITALS: BP 126/56
--- NOTE | 2017-12-04 10:17 | PN- Diabetes ---
Assessment/Plan Diabetes Assessment: This is a 52 Y old lady with diet controlled diabetes presented with nausea, vomitting, diarrhea, and was found to have DKA. Her diabetes has been poorly controlled based on A1c. She prefers to continue to follow her primary care after discharge She is still receiving D5W at 100 ml/hr. She started to eat yesterday night. C- peptide and anti-TYRONE pending Plan: Since she is able to eat, please stop D5W. Continue K supplementation. Continue the same insulin regimen Discussed plan with housestaff Will follow. Subjective Subjective: She started to eat since yesterday dinner. She is in endoscopy this morning. Her glucose level has been between 200-300 over the past 24 hours. Objective Last 24 Hrs of Vital Signs/I&O Vital Signs Date Time Temp Pulse Resp B/P B/P Pulse O2 O2 Flow FiO2 Mean Ox Delivery Rate 12/05 799 97.5 68 16 126/56 97 Room Air 12/04 0400 94 Room Air 12/04 0000 96 Room Air 12/04 0000 98.0 70 20 130/60 96 Room Air 12/03 2000 97 Room Air 12/03 1600 96 Room Air 12/03 1600 97.2 71 20 130/62 96 Room Air 12/03 1200 94 Room Air Room Air Intake & Output 12/04 1600 12/04 0800 12/04 0000 Intake Total 940 1940 Output Total 19995 Balance -1060 -335 Intake, IV 840 1400 Intake, Oral 100 540 Output, 200 Emesis Output, Urine 1999 2074
--- NOTE | 2017-12-04 13:24 | Proc Note Endoscopy ---
Endoscopy Procedure Medical History: unchanged Mental Status: alert/oriented Heart/Lung Eval Prior to Sedation: within normal limits Candidate for Sedation? Yes Procedure Date: 12/04/17 Procedure Type: EGD w/biopsy Mobile Designer: MD Stevenson Deborah E. ASA Classification: III Indications: 1. Nausea and vomiting 2. Abnormal CT scan of the abdomen, thickening distal two thirds of esophagus Instrument: diagnostic gastroscope Meds Received: MAC Patient's Tolerance: good Complications: none Extent Reached: second part of duodenum Procedure: Note: Informed consent was obtained prior to procedure. Risks and benefits of procedure were discussed with patient. Potential complications discussed included perforation, bleeding, abdominal pain, and adverse reaction to medications. It was explained that iany or all of these complications could result in the need for extended hospitalization, emergency surgery, transfusion of packed red blood cells (with the risk of HIV or hepatitis virus), intubation with mechanical ventilation, and possible need for antibiotics. It was further explained that an existing tumor polyp or mucosal abnormality might not be identified at the time of the procedure thus resulting in a missed opportunity for early diagnosis and treatment of a gastrointestinal malignancy or disease with possible interval development of a gastrointestinal cancer or other disease with possible worsening of clinical condition in the interval between endoscopies. It was also discussed that complications are not limited to those listed above. Possible alternatives to endoscopic treatment or evaluation were discussed. All questions were answered. Continuous EKG and blood pressure monitors were attached. Supplemental oxygen was provided with O2 Sat monitoring. Patient was placed in the left lateral decubitus position. A surgical timeout was performed. All persons in the room were identified. All concerns were expressed and answered. A bite block was placed in the mouth and sedation was administered by anesthesia and titrated to comfort prior to starting the procedure. The Olympus upper endoscope was advanced under direct vision to the level of the third portion of the duodenum. Esophagus: The esophagus had had LA Grade B-C esophagitis extending from the GE Junction that was located at 40 cm from the incisors and extending to 30 cm from the incisors. There was linear ulceration with white-based exudate. There was also a small sliding type hiatal hernia. There were tongues of salmon-colored mucosa extending Cephalad above the GE Junction suggestive of Collins's Epithelium and biopsies were obtained from these areas in order to rule out intestinal metaplasia. Stomach: The stomach had diffuse mucosal atrophy involving the antrum and body. There were no stigmata of bleeding. Retroflexed view of the cardiofundic region revealed a normal mucosal and vascular pattern. There was a smal hiatal heria as described previously. There were normal rugae and normal distensibility. The pylorus was patent and easily intubated. Biopsies were obtained from the antrum and angularis to rule out H. Pylori. Biopsies were also obtained from the gastric body and lesser curvature to rule out chronic atrophic gastritis or autoimmune gastritis. Duodenum: The duodenum was fully examined from bulb down to the third portion. There was a normal mucosal vascular pattern throughout. With the endoscope in the forward-viewing position, it was slowly withdrawn and all areas were re-inspected and findings are as described previously. Patient tolerated the procedure well. EBL: Minimal Specimens Removed: 1. antrum and angularis to rule out H. Pylori. 2. body and lesser curvature to rule out chronic atrophic gastritis or autoimmune gastritis. 3. GE Junction to r/o Collins's Epithelium. Findings: 1. LA grade BC esophagitis 2. Atrophic gastritis 3. 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 Small, sliding-type hiatal hernia Impression: 1. LA grade BC esophagitis 2. Atrophic gastritis 3. 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 Small, sliding-type hiatal hernia Recommendations: 1. Await Pathology 2. D/C IV pantoprazole and start Protonix 40 mg p.o. twice daily 3. Patient to have better glycemic control 4. GI will sign off for now. Patient can follow-up with GI as an outpatient for further therapy of esophagitis which is in all likelihood related to poor diabetic control. Do not hesitate to contact us should the need arise.
[2017-12-04 16:00] VITALS: BP 110/60
[2017-12-05] VITALS: BP 136/70
[2017-12-05 03:56] LABS: ABSOLUTE BASOPHIL COUNT 0.1 /CUMM (0.0-0.2); ABSOLUTE EOSINOPHIL COUNT 0 /CUMM (0.0-0.7); ABSOLUTE GRANULOCYTE CT 8.5 /CUMM (1.4-6.5); ABSOLUTE LYMPH COUNT 1.7 /CUMM (1.2-3.4); BASOPHIL % 0.6 % (0.0-2.0); EOSINOPHIL % 0.2 % (0-5); GRANULOCYTE % 75.4 % (42.2-75.2); HEMATOCRIT 39.5 % (37-47); MEAN CORPUSCULAR HGB 30.2 PG (27.0-31.0); MEAN CORPUSCULAR HGB CONC 33.9 G/DL (33.0-37.0); MEAN CORPUSCULAR VOLUME 89.1 FL (81.0-99.0); PLATELET COUNT 253 /CUMM (130-400); RBC DISTRIBUTION WIDTH 13.9 % (11.5-14.5); RED BLOOD CELL CT 4.43 /CUMM (4.20-5.40); WHITE BLOOD CELL COUNT 11.3 /CUMM (4.8-10.8)
--- NOTE | 2017-12-05 07:12 | PN- Resident CRCU ---
Subjective HPI/CRCU Issues: DKA, off insulin drip, gap closed Low bicarbonate levels (<5), now off bicarb drip Nausea and Vomiting 24 Hour Events: Continues to vomit, vomited 3 times small amount 75cc, recieved Zofran twice overnight. Was hypokalemic at 2.7 this AM and took 40 mEq PO, 10mEq x2 IV. Upon assessment this morning was vomiting clear liquid, says that she feels nauseous. Tigan was administered. Patient states she is anxious that she is sick and would like to go home as soon as possible. States that she does not have any abdominal pain, but is urinating very frequently and had wet the bed overnight. Did not have diarrhea but states she had it prior to hospitalization. Objective Vital Signs & I&O Last 8 Hrs of Vitals and I&O: Intake & Output 12/06 799 Intake Total 970 Output Total 2705 Balance -1735 Intake, IV 100 Intake, Oral 870 Output, 80 Emesis Output, Urine 2625 Exam General Appearance: no apparent distress, alert, awake, obese Head: atraumatic Ears, Nose, Throat: normal pharynx Neck: normal inspection Respiratory: normal breath sounds, lungs clear Cardiovascular: regular rate/rhythm Gastrointestinal: soft, non-tender, obese Extremities: normal inspection, no edema Skin: intact Skin Temp/Moisture Exam: Warm/Dry Current Medications: Current Medications Sig/Catarino Start time Last Medication Dose Route Stop Time Status Admin Acetaminophen 1,000 MG Q12 PRN 12/03 1106 AC IV Chlorhexidine 0 .STK-MED ONE 12/04 1401 DC Gluconate TOP Enoxaparin Sodium 40 MG DAILY 12/03 899 AC 12/03 CO 0834 Famotidine 20 MG BID 12/05 899 AC IV Insulin Aspart 0 TIDAC 12/04 1700 DC SC Insulin Aspart 0 TIDAC/HS 12/04 1700 AC 12/04 SC 2049 Insulin Aspart 0 Q6 12/04 1200 DC 12/04 SC 0750 Insulin Detemir 35 UNITS DAILY 12/04 899 AC 12/04 SC 0830 Levothyroxine Sodium 50 MCG DAILY 12/02 2033 AC 12/04 IV 0828 Lidocaine 15 ML .STK-MED ONE 12/04 1553 DC PO 12/04 155 [place] Carbonate 600 MG BID 12/03 899 AC 12/04 PO 2051 Nystatin 1 TRANG TID 12/03 1400 AC 12/04 TOP 2054 Omeprazole 40 MG 1/2H B/BREAKF/DINNER 12/05 1630 AC PO Omeprazole 40 MG BID 12/04 2100 DC 12/04 PO 2052 Ondansetron HCl 4 MG Q6P PRN 12/03 1145 AC 12/05 IV 0355 Pantoprazole Sodium 40 MG BID 12/03 2100 DC 12/04 IV 0828 Potassium Chloride 40 MEQ ONCE ONE 12/05 0515 DC 12/05 PO 12/05 0516 0557 Potassium Chloride 10 MEQ Q1H 12/05 0515 DC 12/05 IV 12/05 0616 0557 Potassium Chloride 40 MEQ BID 12/04 1745 AC 12/04 PO 2049 Potassium Chloride 0 .STK-MED ONE 12/04 1739 DC PO Potassium Chloride 10 MEQ Q1H 12/04 1100 DC 12/04 IV 12/04 1301 1455 Potassium Chloride 0 .STK-MED ONE 12/04 1056 DC IV Potassium Chloride 80 MEQ Q10H 12/04 0745 DC 12/04 Dextrose/Lactated 1,000 ML IV 0827 Ringer's Trimethobenzamide HCl 200 MG 4 TIMES/DAY PRN 12/03 1045 AC IM Impression/Plan Impression/Problem List Impression: Ms. Sanchez is a 52-year-old female with past medical history of diabetes mellitus, morbid obesity status post lap band procedure and subsequent reversal, obstructive sleep apnea on CPAP (noncompliant), GERD, hyperlipidemia, hypothyroidism, schizoaffective disorder, anxiety, and depression who presented last night with nausea and vomiting found to be in diabetic ketoacidosis. Plan: #Respiratory - stable -Breathing well on room air #Infectious Disease - stable Afebrile, Tmax 98.0; Blood + Urine cultures NGTD WBC at 11.3, trending down from 12.9, 14.7, 19.3 on admission; no bands on diff #Cardiovascular - stable NSR on monitor; no acute events QTC normal Pressures 109-157/49-72 #Hematology: -H/H 13.4/39.5 #Metabolic/Endocrinology: -Patient has history of type 2 diabetes mellitus and presented with diabetic ketoacidosis -Hemoglobin A1c 11.6 -Anion gap is closed -sodium bicarbonate drip discontinued yesterday -Off fluids -Replenish potassium, 40mEq PO and IV potassium as needed -Repeat K+ at 10am -Off insulin drip at this time, on Levemir with Sliding scale coverage -Endocrinology recs appreciated -TSH normal, continue levothyroxine #Alimentary - continues to have nausea and vomiting On CC1 diet, tolerating GI recs appreciated, will f/u regarding any further recs Continues to have nausea without vomiting; on Protonix 40mg PO BID, added Famotidine Normal QtC, will switch antiemetic to Tigan and REGLAN Going for CT Head #Neurology: -Patient has significant psych history with history of inpatient psychiatric admissions -[place] level low at admission potentially due to noncompliance -Continue lithium, hold olanzapine for prolonged QTC -repeat lithium level today - low at 0.2 -Consider psychiatry consult -Pain control -Will go for CT Head today #Nephro: BUN/Cr unremarkable. Denies urinary symptoms. Does have urinary frequency without dysuria or suprapubic tenderness. Is now off fluids. #GI: -Significant nausea and vomiting secondary to DKA -Transaminitis is improving -Hepatitis serologies are nonreactive -Continue pantoprazole and trimethobenzamide, added Famotidine and Reglan -Hold pravastatin #Zinc Furnace Charger: -Incidental adnexal mass seen on CT scan -TVUS shows no change in mass from previous; no comment with regards to second mass. -Will hold off on LEAD IOS DEVELOPER consult at this time DVT prophylaxis with enoxaparin CC1 diet Full code Problem List: 1. DKA (diabetic ketoacidoses) 2. Gastritis 3. Hypokalemia Pain Ratin Tomorrow's Labs & Rationales: bep Plan DVT/Prophylaxis: pharmacological
[2017-12-05 08:00] VITALS: BP 122/70
--- NOTE | 2017-12-05 08:37 | PN- Diabetes ---
Assessment/Plan Diabetes Assessment: This is a 52 Y old lady with diet controlled diabetes presented with nausea, vomitting, diarrhea, and was found to have DKA. Her diabetes has been poorly controlled based on A1c. She prefers to continue to follow her primary care after discharge Her glucose level improved after Dextrose was stopped. C-peptide and anti-TYRONE pending Plan: Please continue the current insulin regimen. Please continue to check blood glucose ACHS Will follow Subjective Subjective: Her glucose level went down below 200 after dextrose was stopped. Objective Last 24 Hrs of Vital Signs/I&O Vital Signs Date Time Temp Pulse Resp B/P B/P Pulse O2 O2 Flow FiO2 Mean Ox Delivery Rate 12/05 0400 95 Room Air 12/05 0000 97.8 80 18 136/70 95 Room Air 12/05 0000 95 Room Air 12/04 2000 95 Room Air 12/04 1600 97.3 64 22 110/60 997 Room Air Intake & Output 12/05 1600 12/05 0800 12/05 0000 Intake Total 970 1670 Output Total 2705 1800 Balance -1735 -130 Intake, IV 100 Intake, Oral 870 1670 Output, 80 75 Emesis Output, Urine 2625 1725
[2017-12-05 08:52] LABS: LITHIUM 0.2 mmol/L (0.6-1.2)
--- NOTE | 2017-12-05 09:34 | PN- CRCU ---
Subjective HPI/Critical Care Issues: Continues to vomit, vomited 3 times small amount 75cc, recieved Zofran twice overnight. Was hypokalemic at 2.7 this AM and took 40 mEq PO, 10mEq x2 IV. EGD Impression: 1. LA grade BC esophagitis 2. Atrophic gastritis 3. 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 Small, sliding-type hiatal hernia Objective Current Medications: Current Medications Sig/Catarino Start time Last Medication Dose Route Stop Time Status Admin Acetaminophen 1,000 MG Q12 PRN 12/03 1106 AC IV Chlorhexidine 0 .STK-MED ONE 12/04 1401 DC Gluconate TOP Enoxaparin Sodium 40 MG DAILY 12/03 09 AC 12/05 SC 0924 Famotidine 20 MG BID 12/05 09 AC 12/05 IV 0923 Insulin Aspart 0 TIDAC 12/04 1700 DC SC Insulin Aspart 0 TIDAC/HS 12/04 1700 AC 12/05 SC 0800 Insulin Aspart 0 Q6 12/04 1200 DC 12/04 SC 0750 Insulin Detemir 35 UNITS DAILY 12/04 0900 AC 12/05 SC 0900 Levothyroxine Sodium 50 MCG DAILY 12/02 2034 AC 12/05 IV 0924 Lidocaine 15 ML .STK-MED ONE 12/04 1553 DC PO 12/04 1554 [place] Carbonate 600 MG BID 12/03 0900 AC 12/04 PO 2051 Nystatin 1 TRANG TID 12/03 1400 AC 12/05 TOP 0924 Omeprazole 40 MG 1/2H B/BREAKF/DINNER 12/05 1630 AC PO Omeprazole 40 MG BID 12/04 2100 DC 12/04 PO 205 Ondansetron HCl 4 MG Q6P PRN 12/03 1145 AC 12/05 IV 0355 Pantoprazole Sodium 40 MG BID 12/03 2100 DC 12/04 IV 0828 Potassium Chloride 40 MEQ ONCE ONE 12/05 0515 DC 12/05 PO 12/05 0516 0557 Potassium Chloride 10 MEQ Q1H 12/05 0515 DC 12/05 IV 12/05 0616 0800 Potassium Chloride 40 MEQ BID 12/04 1745 AC 12/04 PO 2050 Potassium Chloride 0 .STK-MED ONE 12/04 1739 DC PO Potassium Chloride 10 MEQ Q1H 12/04 1100 DC 12/04 IV 12/04 1301 1455 Potassium Chloride 0 .STK-MED ONE 12/04 1056 DC IV Potassium Chloride 80 MEQ Q10H 12/04 0745 DC 12/04 Dextrose/Lactated 1,000 ML IV 0827 Ringer's Trimethobenzamide HCl 200 MG 4 TIMES/DAY PRN 12/03 1045 AC 12/05 IM 0800 Vital Signs & I&O Last 24 Hrs of Vitals and I&O: Vital Signs Date Time Temp Pulse Resp B/P B/P Pulse O2 O2 Flow FiO2 Mean Ox Delivery Rate 12/05 0400 95 Room Air 12/05 0000 97.8 80 18 136/70 95 Room Air 12/05 0000 95 Room Air 12/04 2000 95 Room Air 12/04 1600 97.3 64 22 110/60 997 Room Air Intake & Output 12/05 1600 12/05 0800 12/05 0000 Intake Total 970 1670 Output Total 2705 1800 Balance -1735 -130 Intake, IV 100 Intake, Oral 870 1670 Output, 80 75 Emesis Output, Urine 2625 1725 Impression/Plan Impression/Plan Impression/Plan: General Appearance: well developed/nourished, no apparent distress, alert, awake , comfortable Respiratory: normal breath sounds Cardiovascular: regular rate/rhythm Gastrointestinal: normal bowel sounds, soft Extremities: normal inspection Ms. Sanchez is a 52-year-old female with past medical history of diabetes mellitus, morbid obesity status post lap band procedure and subsequent reversal, Obstructive sleep apnea on CPAP (noncompliant), GERD, hyperlipidemia, hypothyroidism, schizoaffective disorder, anxiety, and depression who presented last night with nausea and vomiting found to be in diabetic ketoacidosis. Issues DKA resolved Nausea with vomiting Electrolyte abnormalities High qtc now better Adenexal mass stable Severe hepatomegaly, Thickened esopahgus needs eval when pt is stable PLAN As noted above Insulin per endo Agg potassium replacement Check qtc daily Cont antiemetics CT head today Ask GI to see again to see if we could anything else can be done Check amylase and lipase Can try one dose of reglan as qtc is borderline stable PPI
[2017-12-05 11:30] LABS: LITHIUM < 0.2 mmol/L (0.6-1.2)
--- NOTE | 2017-12-05 14:48 | RADIOLOGY REPORT ---
EXAMINATION: XR ABDOMEN CLINICAL INDICATION: Persistent nausea and vomiting. Presumptive diagnosis of small bowel obstruction. COMPARISON: Two-view abdomen dated 10/31/2015. TECHNIQUE: AP view of the abdomen performed on 3 images. FINDINGS: Nonobstructive bowel gas pattern with no abnormal distention of small or large bowel loops seen. Moderate amount of fecal material seen scattered throughout the colon. Ovoid densities, presumably ingested pill fragments, are seen in the right lower quadrant. The bilateral flanks of the abdomen are not fully included on this exam. EKG leads overlie the lower chest/upper abdomen. Bony structures are unremarkable. IMPRESSION: No abnormal distention of small or large bowel loops seen. Moderate amount of fecal material scattered throughout the colon.
--- NOTE | 2017-12-05 15:45 | CT SCAN REPORT ---
EXAMINATION: CT HEAD WITHOUT CONTRAST CLINICAL INFORMATION: Nausea, vomiting. COMPARISON: MRI of the head 12/11/2015, CT head 12/08/2015 TECHNIQUE: Contiguous axial imaging was performed from the skull base to vertex without intravenous administration of contrast. DLP: 613.79 mGy-cm FINDINGS: There is no evidence of acute intracranial hemorrhage or territorial infarction. No abnormal mass effect or midline shift is seen. Perry to white matter differentiation is well preserved. No extra-axial fluid collections are identified. The ventricles are normal in size. There is no abnormal attenuation within the brain parenchyma. The osseous structures and soft tissues are normal. The mastoid air cells and visualized portions of the paranasal sinuses are well aerated. IMPRESSION: No acute intracranial pathology.
[2017-12-05 16:00] VITALS: BP 126/80
[2017-12-05 23:00] VITALS: BP 115/75
[2017-12-06 04:00] VITALS: BP 118/74
--- NOTE | 2017-12-06 07:16 | PN- Resident CRCU ---
See Addendum Subjective HPI/CRCU Issues: DKA, off insulin drip, gap closed Low bicarbonate levels (<5), now off bicarb drip Nausea and Vomiting Hypokalemia - resolved 24 Hour Events: Patient was vitally stable overnight, no acute events. Patient seen and examined at bedside. Pt states that she is still nauseous, however she has not vomited overnight. States that she is mostly had liquids, has not eaten much of her dinner. States that she enjoys sherbet and karla albina. Patient states that she has not had a bowel movement since yesterday. Patient states that she is not dizzy, but mostly just anxious regarding her condition, continuously asked if she could go home today. Continues to urinate frequently than expected. Denies fevers/chills/night sweats/chest pain/abdominal pain/lower extremity edema. Objective Vital Signs & I&O Last 8 Hrs of Vitals and I&O: Intake & Output 12/06 0800 Intake Total 1760 Output Total 2550 Balance -790 Intake, Oral 1760 Output, Urine 2550 Exam General Appearance: well developed/nourished, no apparent distress, alert, awake , obese Head: atraumatic Ears, Nose, Throat: normal pharynx Neck: normal inspection Respiratory: normal breath sounds, lungs clear Cardiovascular: regular rate/rhythm Gastrointestinal: soft, non-tender, obese Extremities: normal inspection, no edema Cranial Nerves: normal speech Skin: intact Skin Temp/Moisture Exam: Warm/Dry Sepsis Skin Exam (color): Normal for Ethnicity Current Medications: Current Medications Sig/Catar[place] Start time Last Medication Dose Route Stop Time Status Admin Acetaminophen 1,000 MG Q12 PRN 12/03 1106 AC IV Azithromycin 500 MG ONCE ONE 12/05 1500 DC 12/05 Sodium Chloride 250 ML IV 12/05 1559 1626 Bisacodyl 5 MG DAILY 12/06 899 AC PO Enoxaparin Sodium 40 MG DAILY 12/03 899 AC 12/05 SC 923 Famotidine 20 MG BID 12/05 899 AC 12/05 IV 2033 Insulin Aspart 0 TIDAC/HS 12/04 1700 AC 12/05 SC 162 Insulin Detemir 35 UNITS DAILY 12/04 899 AC 12/05 SC 899 Levothyroxine Sodium 50 MCG DAILY 12/02 2033 AC 12/05 IV 0924 [place] Carbonate 600 MG BID 12/03 0900 AC 12/05 PO 2031 Metoclopramide HCl 15 MG ONCE ONE 12/05 1015 DC 12/05 IV 12/05 1016 1117 Metoclopramide HCl 15 MG Q6P PRN 12/05 1015 AC 12/05 IV 1626 Nystatin 1 TRANG TID 12/03 1400 AC 12/05 TOP 2033 Omeprazole 40 MG 1/2H B/BREAKF/DINNER 12/05 1630 AC 12/06 PO 06 Omeprazole 40 MG BID 12/04 2100 DC 12/04 PO 2052 Ondansetron HCl 4 MG Q6P PRN 12/03 1145 DC 12/05 IV 0355 Potassium Chloride 10 MEQ Q1H 12/05 1715 DC 12/05 IV 12/05 1816 2013 Potassium Chloride 40 MEQ BID 12/05 1715 AC 12/05 PO 2030 Potassium Chloride 0 .STK-MED ONE 12/05 1148 DC IV Potassium Chloride 0 .STK-MED ONE 12/05 1147 DC PO Potassium Chloride 60 MEQ ONCE ONE 12/05 1145 DC 12/05 PO 12/05 1146 1151 Potassium Chloride 10 MEQ ONCE ONE 12/05 1145 DC 12/05 IV 12/05 1146 1151 Potassium Chloride 40 MEQ BID 12/04 1745 DC 12/04 PO 2049 Trimethobenzamide HCl 200 MG 4 TIMES/DAY PRN 12/03 1045 AC 12/05 IM 1326 Impression/Plan Impression/Problem List Impression: Ms. Sanchez is a 52-year-old female with past medical history of diabetes mellitus, morbid obesity status post lap band procedure and subsequent reversal, obstructive sleep apnea on CPAP (noncompliant), GERD, hyperlipidemia, hypothyroidism, schizoaffective disorder, anxiety, and depression who presented last night with nausea and vomiting found to be in diabetic ketoacidosis. She is stable given her normokalemia, closed gap and can be downgraded to GEN MED. Plan: #Respiratory - stable -Breathing well on room air #Infectious Disease - stable Afebrile, Tmax 98.0; Blood + Urine cultures NGTD No leukocytosis or bandemia #Cardiovascular - stable NSR on monitor; no acute events QTC normal Pressures 115-130/74 #Hematology: -H/H 13.4/39.5 yesterday #Metabolic/Endocrinology: -Patient has history of type 2 diabetes mellitus and presented with diabetic ketoacidosis -Hemoglobin A1c 11.6 -Anion gap is closed -sodium bicarbonate drip discontinued yesterday -Off fluids -Off insulin drip at this time, on Levemir with Sliding scale coverage -Endocrinology recs appreciated -Potassium normal this morning at 3.7 -TSH normal, continue levothyroxine #Alimentary - continues to have nausea and vomiting On CC1 diet, tolerating GI recs appreciated, will f/u regarding any further recs Continues to have nausea without vomiting; on Protonix 40mg PO BID, added Famotidine Normal QtC, will switch antiemetic to Tigan and REGLAN Going for CT Head - results negative for increased ICP or acute pathology Received Azithromycin yesterday for suspected diabetic gastroparesis. Potential switch to PO Erythromycin today. #Neurology: -Patient has significant psych history with history of inpatient psychiatric admissions -[place] level low at admission potentially due to noncompliance -Continue lithium, hold olanzapine for prolonged QTC -repeat lithium level yesterday - low at 0.2 -Consider psychiatry consult -Pain control #Nephro: BUN/Cr unremarkable. Denies urinary symptoms. Does have urinary frequency without dysuria or suprapubic tenderness. Is now off fluids. #GI: -Significant nausea and vomiting secondary to DKA -Liver enzymes trending upwards -Received azithromycin yesterday for GI motility. Potential switch to PO erythromycin today -Hepatitis serologies are nonreactive -Continue pantoprazole and trimethobenzamide, added Famotidine and Reglan -Hold pravastatin #Banquet Houseperson: -Incidental adnexal mass seen on CT scan -TVUS shows no change in mass from previous; no comment with regards to second mass. -Will hold off on CREAM CHEESE MAKER consult at this time DVT prophylaxis with enoxaparin CC1 diet Full code Problem List: 1. DKA (diabetic ketoacidoses) Pain Ratin Tomorrow's Labs & Rationales: BEP Plan DVT/Prophylaxis: pharmacological
[2017-12-06 08:00] VITALS: BP 130/76
--- NOTE | 2017-12-06 09:29 | PN- Diabetes ---
Assessment/Plan Diabetes Assessment: This is a 52 Y old lady with diet controlled diabetes presented with nausea, vomitting, diarrhea, and was found to have DKA. Her diabetes has been poorly controlled based on A1c. She prefers to continue to follow her primary care after discharge Her glucose level improved after Dextrose was stopped. C-peptide and anti-TYRONE pending Her glucose level declines during day time. She has not been able to tolerate solid food yesterday. Plan: Please use bedtime sliding scale for meal time until she is able to tolerate solid food. Increase Levemir to 40 units daily. Will follow Subjective Subjective: She was not able to tolerate solid food yesterday. She vomitted what she ate or drank liquid only. Her blood glucose declines over the daytime. Objective Last 24 Hrs of Vital Signs/I&O Vital Signs Date Time Temp Pulse Resp B/P B/P Pulse O2 O2 Flow FiO2 Mean Ox Delivery Rate 12/06 0800 97.3 66 18 130/76 96 Room Air 12/06 0400 97.5 74 20 118/74 96 12/05 2300 97.3 66 19 115/75 94 Room Air 12/05 2000 97 Room Air Room Air 12/05 1600 97.7 83 20 126/80 96 Room Air Intake & Output 12/06 1600 12/06 0800 12/06 0000 Intake Total 1760 2410 Output Total 2550 2875 Balance -790 -465 Intake, IV 530 Intake, Oral 1760 1880 Number 0 Bowel Movements Output, 0 Emesis Output, Urine 2550 2875
[2017-12-06 16:00] VITALS: BP 112/76
--- NOTE | 2017-12-06 16:50 | RADIOLOGY REPORT ---
EXAMINATION: XR ABDOMEN MULTIPLE VIEWS CLINICAL INDICATION: Gastroparesis. Intractable vomiting. COMPARISON: None TECHNIQUE: AP supine and upright views (4 images) of the abdomen. FINDINGS: The bowel gas pattern is unremarkable. There is no evidence of bowel obstruction. The stomach is not distended. There are no soft tissue masses, free air, or organomegaly. One pill fragment is again identified in the right lower quadrant. IMPRESSION: No acute abnormalities. No evidence of bowel obstruction and no gastric dilatation.
[2017-12-06 17:30] VITALS: BP 110/72
--- NOTE | 2017-12-06 21:41 | Transfer of Care Summary ---
Hospital Course Course Hospital Course: This is a 52-year-old morbidly obese female status post lap band procedure ( subsequent reversal), history of obstructive sleep apnea on CPAP (noncompliant), GERD, hyperlipidemia, hypothyroidism, schizo affective disorder (depressed, with suicidality) bipolar, anxiety, depression with recent admission April 14, 2017 at Inpatient [facility] came into [place] emergency department for evaluation of nausea, vomiting and diarrhea. Apparently 3-4 days prior to presentation she ate a meal consisting of chicken Van with subsequent development of nausea ,vomiting and diarrhea. She endorses of having multiple loose watery bowel movements, red in color, however she also gives a history that she was drinking (Crystal light) and the red color has been present for 1 week prior. More recently since last 3 weeks she has not been feeling good, she was on metformin for her diabetes, however as per her - recently in March her primary care Dr. Tyler had stopped metformin because her blood sugars were in good control. She does not seem to be a reliable historian therefore this will need to be confirmed with her primary care. Since March she was not taking anything for diabetes. She has been having increased urination for at least 3 weeks prior to presentation and since last 1 week prior to presentation she has been having increased thirst, nausea vomiting and more recently multiple loose bowel movements. He also notes that since last few days she has been having stuttering speech. She denied any headache, fever, sore throat, nausea any abdominal pain, constipation, any burning in urine. Review of system as mentioned above. Physical exam she was alert oriented, however she was emotionally labile, was nauseous. HEENT PERRLA. Neck no JVD. CVS S1-S2 present, no murmur. RS bilateral air entry, no adventitious sounds. Abdomen soft, nontender, bowel sounds present. Bilateral lower extremity no edema clubbing or cyanosis. Her vitals on presentation temperature of 98.2, pulse of 95 201, respiration of 22, blood pressure 133/65, she was saturating 98% on room air. Labs white count of 19.3, 2 bands. Sodium of 138, potassium 3.6, BUN/creatinine 25/9, bicarb of 8. Glucose of 424. Function test mildly elevated with AST 97, ALT 81, alkaline phosphatase 130. She will set of troponin less than 0.01. EKG normal sinus rhythm, sinus tachycardia. Function test within normal limit. Lipase 105. Anion gap of 25. Urine acetone positive UA showed protein of 100, ketones present, increased specific gravity, negative nitrite, negative leukocyte esterase, 1-3 WBC, glucose greater than thousand. CT chest abdomen and pelvis showed moderate thickening of the wall of the distal two thirds of the thoracic esophagus, severe hepatomegaly with hepatic parenchymal disease possibly hepatic steatosis, a soft tissue mass in the pelvic cavity [id number] posterior and superior to the bladder possible adnexal mass was a mesenteric mass, 2.9 cm mass in the left side present as well, no acute diverticulitis seen She was admitted to the ICU for DKA and was placed on an insulin drip and a bicarbonate drip. Endocrinology was consulted who instituted Levemir 35 units with a sliding scale including night time doses. Her statin was held given her transaminitis, and her insulin and bicarb drip were discontinued on hospital day 2. She was hypokalemic and her potassium was repleted, without EKG abnormalaties or symptoms. GI was consulted, and she underwent endoscopy which did not reveal any significant abnormalaties. Her insulin was titrated up and she was placed on a CC1 diet. Her QtC was trended which trended down and she was started on Reglan BID for nausea. She was eventually able to tolerate mild PO intake, and GI was reconsulted given continued nausea. Her potassium normalized, and she was stable from ICU standpoint to be transferred to General Medicine floor. Assessment/Plan: Ms. Sanchez is a 52-year-old female with past medical history of diabetes mellitus, morbid obesity status post lap band procedure and subsequent reversal, obstructive sleep apnea on CPAP (noncompliant), GERD, hyperlipidemia, hypothyroidism, schizoaffective disorder, anxiety, and depression who presented last night with nausea and vomiting found to be in diabetic ketoacidosis. She is stable given her normokalemia, closed gap and can be downgraded to GEN MED. Plan: #Respiratory - stable -Breathing well on room air #Infectious Disease - stable Afebrile, Tmax 98.0; Blood + Urine cultures NGTD No leukocytosis or bandemia #Cardiovascular - stable NSR on monitor; no acute events QTC normal Pressures 115-130/74 #Hematology: -H/H 13.4/39.5 yesterday #Metabolic/Endocrinology: -Patient has history of type 2 diabetes mellitus and presented with diabetic ketoacidosis -Hemoglobin A1c 11.6 -Anion gap is closed -sodium bicarbonate drip discontinued yesterday -Off fluids -Off insulin drip at this time, on Levemir with Sliding scale coverage -Endocrinology recs appreciated -Potassium normal this morning at 3.7 -TSH normal, continue levothyroxine #Alimentary - continues to have nausea and vomiting On CC1 diet, tolerating GI recs appreciated, will f/u regarding any further recs Continues to have nausea without vomiting; on Protonix 40mg PO BID, added Famotidine Normal QtC, will switch antiemetic to Tigan and REGLAN Going for CT Head - results negative for increased ICP or acute pathology Received Azithromycin yesterday and today for suspected diabetic gastroparesis. Will discontinue this and switch to PO Reglan BID before meals scheduled. Monitor QtC daily. #Neurology: -Patient has significant psych history with history of inpatient psychiatric admissions -[place] level low at admission potentially due to noncompliance -Continue lithium, hold olanzapine for prolonged QTC -repeat lithium level yesterday - low at 0.2 -Consider psychiatry consult -Pain control #Nephro: BUN/Cr unremarkable. Denies urinary symptoms. Does have urinary frequency without dysuria or suprapubic tenderness. Is now off fluids. #GI: -Significant nausea and vomiting secondary to DKA -Liver enzymes trending upwards -Received azithromycin yesterday and today for GI motility. Will discontinue this and instead switch to scheduled PO Reglan BID before meals -Hepatitis serologies are nonreactive -Continue pantoprazole and trimethobenzamide, added Famotidine and Reglan -Hold pravastatin #Manager Statistics: -Incidental adnexal mass seen on CT scan -TVUS shows no change in mass from previous; no comment with regards to second mass. -Will hold off on SCOURING TRAIN OPERATOR consult at this time DVT prophylaxis with enoxaparin CC1 diet Full code
[2017-12-06 22:16] VITALS: BP 120/82
[2017-12-07 06:23] VITALS: BP 126/74
--- NOTE | 2017-12-07 07:49 | PN- Housestaff ---
Karin Martin 12/07/17 0749: Subjective Follow-up For: DKA Diabetic gastroparesis Hypokalemia Subjective: Patient was tranfered from the critical care unit where she was being managed for DKA and diabetic gastroparesis. She states she feels very well this morning. She was able to eat half a taost for breakfast and was able to keep her pills down. She states she vomitted a "glob of dough" last night and has been feeling much better since. She denies nausea, vomiting, abdominal pain, headache or dizziness at this time. Review of Systems Constitutional: Reports: see HPI. Objective Last 24 Hrs of Vital Signs/I&O Vital Signs Date Time Temp Pulse Resp B/P B/P Pulse O2 O2 Flow FiO2 Mean Ox Delivery Rate 12/07 0623 98.9 77 20 126/74 96 Room Air 12/06 2216 99.4 84 18 120/82 97 Room Air 12/06 1730 97.8 73 20 110/72 97 Room Air 12/06 1600 97.9 74 20 112/76 96 Room Air Intake & Output 12/07 1600 12/07 0800 12/07 0000 Intake Total 1100 200 Output Total Balance 1100 200 Intake, IV 600 100 Intake, Oral 500 100 Physical Exam General Appearance: Alert, Oriented X3 Neck: Supple Cardiovascular: Regular Rate, Normal S1, Normal S2, No Murmurs Lungs: Clear to Auscultation Abdomen: Normal Bowel Sounds, Soft, No Tenderness, No Hepatospenomegaly Neurological: Normal Gait, Normal Speech, Strength at 5/5 X4 Ext Extremities: No Edema, Normal Pulses Vascular: Normal Pulses, Pulses Symmetrical Assessment/Plan Assessment: Ms. Sanchez is a 52-year-old female with past medical history of diabetes mellitus, morbid obesity status post lap band procedure and subsequent reversal, obstructive sleep apnea on CPAP (noncompliant), GERD, hyperlipidemia, hypothyroidism, schizoaffective disorder, anxiety, and depression who was being treated for DKA and hypokalemia in the critical care unit. She was transferred to the Gen Med service given the normalisation of her Potassium and closed anion gap Her QTc this morning was 474. Plan: 1. DKA (resolved) -Patient has history of type 2 diabetes mellitus and presented with diabetic ketoacidosis -Hemoglobin A1c 11.6 -Anion gap is closed -sodium bicarbonate drip discontinued -Off fluids -Off insulin drip at this time, on Levemir with Sliding scale coverage -Endocrinology recs appreciated * Would increase Levemir to 50 units daily * Meal-time Novolog coverage only when she eats more than half her meal. Would use bed-time coverage otherwise. Nurse informed. -Potassium normal this morning at 3.9 -TSH normal, continue levothyroxine 2. Nausea/Vomiting -On CC1 diet, tolerating -GI recs appreciated. Patient would follow up with as an out-patient -Nausea/vomiting resolved. on Protonix 40mg PO BID, Stop Famotidine -Normal QtC, will continue Tigan and REGLAN -Complained of transient slurring of speech when she was in the ICU. Heada CT unremarkable. 3. Anxiety/ Depression -Patient has significant psych history with history of inpatient psychiatric admissions -[place] level low at admission potentially due to noncompliance -Continue lithium, consider re-starting Olanzipine given normal QTc -repeat lithium level low at 0.2 -Consider psychiatry consult -Pain control 4. Transaminitis -Liver enzymes trended down, bilirubin stable -Hepatitis serologies are nonreactive -Continue pantoprazole and trimethobenzamide, added Famotidine and Reglan -Hold pravastatin 5.Technical Services Specialist: -Incidental adnexal mass seen on CT scan -TVUS shows no change in mass from previous; no comment with regards to second mass. -Will hold off on SENIOR MATERIALS SCIENTIST consult at this time DVT prophylaxis with enoxaparin CC1 diet Full code Problem List: 1. Hypokalemia 2. DKA (diabetic ketoacidoses) 3. Nausea vomiting and diarrhea Pain Ratin Pain Location: none Pain Goal: Remain pain free Pain Plan: pathway Tomorrow's Labs & Rationales: cbc, bep, hepatic function BharatVernon 12/07/17 1038: Attending MD Review Statement Attending Statement Attending MD Statement: examined this patient, discuss w/resident/PA/LITHOPLATE MAKER, agreed w/resident/PA/LITHOPLATE MAKER, discussed with family, reviewed EMR data (avail), discussed with nursing, discussed with case mgmt, reviewed images, amended to note Attending Assessment/Plan: 52-year-old female with past medical history of diabetes mellitus, morbid obesity status post lap band procedure and subsequent reversal, obstructive sleep apnea on CPAP (noncompliant), GERD, hyperlipidemia, hypothyroidism, schizoaffective disorder, anxiety, and depression who was admitted to ICU for DKA now resolved and transferred to gen/med. Overnight patient with no new complaints. She is tolerating her breakfast this morning. Convert ov meds to PO meds and see if she is able to tolerate diet. Insulin management as per endocrinology recommendations. She needs to follow up with endo as outpatient. Hypothyroidism c/w levothyroxine iv to PO meds as she is able to toelrate her po meds now Anticipate discharge as she is able to tolerate her diet and endocrinology for insulin recommnedations.
[2017-12-07 08:32] LABS: ABSOLUTE BASOPHIL COUNT 0 /CUMM (0.0-0.2); ABSOLUTE EOSINOPHIL COUNT 0.2 /CUMM (0.0-0.7); ABSOLUTE GRANULOCYTE CT 5.8 /CUMM (1.4-6.5); ABSOLUTE LYMPH COUNT 1.9 /CUMM (1.2-3.4); ABSOLUTE MONOCYTE COUNT 0.8 /CUMM (0.10-0.60); BASOPHIL % 0.5 % (0.0-2.0); EOSINOPHIL % 2.6 % (0-5); GRANULOCYTE % 66.3 % (42.2-75.2); MEAN CORPUSCULAR HGB 29.8 PG (27.0-31.0); MEAN CORPUSCULAR HGB CONC 33.2 G/DL (33.0-37.0); MEAN CORPUSCULAR VOLUME 89.6 FL (81.0-99.0); MEAN PLATELET VOLUME 10.1 FL (7.4-10.4); PLATELET COUNT 253 /CUMM (130-400); RBC DISTRIBUTION WIDTH 13.7 % (11.5-14.5); RED BLOOD CELL CT 5.21 /CUMM (4.20-5.40); WHITE BLOOD CELL COUNT 8.7 /CUMM (4.8-10.8)
[2017-12-07 09:13] LABS: HEMATOCRIT 46.7 % (37-47)
--- NOTE | 2017-12-07 09:56 | PN- Diabetes ---
Assessment/Plan Diabetes Assessment: This is a 52 Y old lady with diet controlled diabetes presented with nausea, vomitting, diarrhea, and was found to have DKA. Her diabetes has been poorly controlled based on A1c. She prefers to continue to follow her primary care after discharge C-peptide and anti-TYRONE pending She continues to be nauseous and D5W was started again Plan: Since D5W is started again, and her glucose level went up overnight despite 40 units of Levemir, would recommend 50 units of Levemir daily. And please give another 10 units of Levemir now as she only received 40 units this morning. Please only use mealtime sliding scale when she is able to eat at least 1/2 of each meal. Otherwise please continue to use bedtime sliding scale for mealtime. Continue IV levothyroxine. Will follow. Subjective Subjective: Patient is still nauseous, She is only able to eat a small percentage of solid food. Her BG has been between 160-290 over the past 24 hours. D5 with 1/2 NS was started last night. Objective Last 24 Hrs of Vital Signs/I&O Vital Signs Date Time Temp Pulse Resp B/P B/P Pulse O2 O2 Flow FiO2 Mean Ox Delivery Rate 12/07 0623 98.9 77 20 126/74 96 Room Air 12/06 2216 99.4 84 18 120/82 97 Room Air 12/06 1730 97.8 73 20 110/72 97 Room Air 12/06 1600 97.9 74 20 112/76 96 Room Air Intake & Output 12/07 1600 12/07 0800 12/07 0000 Intake Total 1100 200 Output Total Balance 1100 200 Intake, IV 600 100 Intake, Oral 500 100
[2017-12-07 14:49] VITALS: BP 130/75
[2017-12-07 21:00] VITALS: BP 136/76
[2017-12-08 06:20] VITALS: BP 128/80
--- NOTE | 2017-12-08 07:19 | PN- Housestaff ---
Karin Martin 12/08/17 0718: Subjective Follow-up For: DKA Hypokalemia Subjective: Patient was seen and examined at bedside. She has been able to maintian a good PO intake. She no longer has complains of having nausea, vomitng, abdominal pain. The patient is scheduled to have visiting nurses come home tomorrow to educate her about her home anti-diabetics. Review of Systems Constitutional: Reports: see HPI. Objective Last 24 Hrs of Vital Signs/I&O Vital Signs Date Time Temp Pulse Resp B/P B/P Pulse O2 O2 Flow FiO2 Mean Ox Delivery Rate 12/08 08 Room Air 12/08 0620 98.6 84 20 128/80 96 12/07 2100 98.4 88 16 136/76 96 12/07 1449 98.4 90 20 130/75 96 Room Air Intake & Output 12/08 1600 12/08 0800 12/08 0000 Intake Total 100 200 Output Total Balance 100 200 Intake, Oral 100 200 Physical Exam General Appearance: Alert, Oriented X3, Cooperative, No Acute Distress Skin: No Rashes Neck: Supple Cardiovascular: Regular Rate, Normal S1, Normal S2 Lungs: Clear to Auscultation Abdomen: Normal Bowel Sounds, Soft, No Tenderness Extremities: No Edema, Normal Pulses Assessment/Plan Assessment: Ms. Sanchez is a 52-year-old female with past medical history of diabetes mellitus, morbid obesity status post lap band procedure and subsequent reversal, obstructive sleep apnea on CPAP (noncompliant), GERD, hyperlipidemia, hypothyroidism, schizoaffective disorder, anxiety, and depression who was being treated for DKA and hypokalemia in the critical care unit. She was transferred to the [facility] service given the normalisation of her Potassium and closed anion gap Her QTc this morning was 474. Plan: 1. DKA (resolved) -Patient has history of type 2 diabetes mellitus and presented with diabetic ketoacidosis -Hemoglobin A1c 11.6 -Anion gap is closed -Sodium bicarbonate drip discontinued -Off fluids -Off insulin drip at this time, on Levemir with Sliding scale coverage -Endocrinology recs appreciated * Would continue Levemir at 50 units * Meal-time Novolog coverage only when she eats more than half her meal. Would use bed-time coverage otherwise. Nurse was informed. The patient has been eatiing well since yesterday. -Potassium normal this morning at 3.8 -The patient would be discharged on the same insulin regimen as she is in the hospital -TSH normal, continue levothyroxine 2. Nausea/Vomiting -On CC1 diet, tolerating -GI recs appreciated. Patient would follow up with as an out-patient -Nausea/vomiting resolved. on Protonix 40mg PO BI -Normal QtC, will continue Tigan and REGLAN -Complained of transient slurring of speech when she was in the ICU. Head CT unremarkable. 3. Anxiety/ Depression -Patient has significant psych history with history of inpatient psychiatric admissions -[place] level low at admission potentially due to noncompliance -Continue lithium, consider re-starting Olanzipine given normal QTc -repeat lithium level low at 0.2 4. Transaminitis -Liver enzymes trended down, bilirubin stable -Hepatitis serologies are nonreactive -Hold pravastatin 5.Director Of People: -Incidental adnexal mass seen on CT scan -TVUS shows no change in mass from previous; no comment with regards to second mass. -Will hold off on PATTERN CUTTER consult at this time DVT prophylaxis with enoxaparin CC1 diet Full code Problem List: 1. Hypokalemia 2. DKA (diabetic ketoacidoses) 3. UTI (urinary tract infection) Pain Ratin Pain Location: none Pain Goal: Remain pain free Pain Plan: pathway Tomorrow's Labs & Rationales: cbc and bep Vernon Nicholson 12/08/17 1039: Attending MD Review Statement Attending Statement Attending MD Statement: examined this patient, discuss w/resident/PA/PEDIGREE TRACER, agreed w/resident/PA/PEDIGREE TRACER, discussed with family, reviewed EMR data (avail), discussed with nursing, discussed with case mgmt, reviewed images, amended to note Attending Assessment/Plan: 52-year-old female with past medical history of diabetes mellitus, morbid obesity status post lap band procedure and subsequent reversal, obstructive sleep apnea on CPAP (noncompliant), GERD, hyperlipidemia, hypothyroidism, schizoaffective disorder, anxiety, and depression who was admitted to ICU for DKA now resolved and transferred to gen/med. Overnight patient with no new complaints but had vomiting after breakfast. Increased reglan. Advance diet as tolerated. Insulin management as per endocrinology recommendations. She needs to follow up with endo as outpatient. Hypothyroidism c/w levothyroxine PO meds. Anticipate discharge soon as she is able to tolerate her diet and endocrinology for insulin recommnedations.
[2017-12-08] MEDS ORDERED: OMEPRAZOLE40 M1 PO (07:57)
[2017-12-08 08:16] LABS: ABSOLUTE BASOPHIL COUNT 0.1 /CUMM (0.0-0.2); ABSOLUTE EOSINOPHIL COUNT 0.2 /CUMM (0.0-0.7); ABSOLUTE GRANULOCYTE CT 5.3 /CUMM (1.4-6.5); ABSOLUTE LYMPH COUNT 2.4 /CUMM (1.2-3.4); ABSOLUTE MONOCYTE COUNT 0.9 /CUMM (0.10-0.60); BASOPHIL % 0.7 % (0.0-2.0); EOSINOPHIL % 2.4 % (0-5); GRANULOCYTE % 59.2 % (42.2-75.2); HEMATOCRIT 43.8 % (37-47); MEAN CORPUSCULAR HGB 30.2 PG (27.0-31.0); MEAN CORPUSCULAR HGB CONC 33.7 G/DL (33.0-37.0); MEAN CORPUSCULAR VOLUME 89.5 FL (81.0-99.0); MEAN PLATELET VOLUME 9.9 FL (7.4-10.4); PLATELET COUNT 239 /CUMM (130-400); RBC DISTRIBUTION WIDTH 13.9 % (11.5-14.5); RED BLOOD CELL CT 4.89 /CUMM (4.20-5.40); WHITE BLOOD CELL COUNT 8.9 /CUMM (4.8-10.8)
--- NOTE | 2017-12-08 09:14 | Discharge Summary ---
Visit Information Visit Dates Admission Date: 12/02/17 Discharge Date: 12/09/17 Hospital Course Course Attending Physician: Vernon Nicholson MD Primary Care Physician: Galindo Tyler MD Hospital Course: This is a 52-year-old morbidly obese female status post lap band procedure ( subsequent reversal), history of obstructive sleep apnea on CPAP (noncompliant), GERD, hyperlipidemia, hypothyroidism, schizo affective disorder (depressed, with suicidality) bipolar, anxiety, depression with recent admission April 14, 2017 at Inpatient Psychiatry came into [facility] emergency department for evaluation of nausea, vomiting and diarrhea. Apparently 3-4 days prior to presentation she ate a meal consisting of chicken Van with subsequent development of nausea ,vomiting and diarrhea. She endorses of having multiple loose watery bowel movements, red in color, however she also gives a history that she was drinking (Crystal light) and the red color has been present for 1 week prior. More recently since last 3 weeks she has not been feeling good, she was on metformin for her diabetes, however as per her - recently in March her primary care Dr. Tyler had stopped metformin because her blood sugars were in good control. This still needs to be re-confirmed from her primary care provider. Since March she was not taking anything for diabetes. She has been having increased urination for at least 3 weeks prior to presentation and since last 1 week prior to presentation she has been having increased thirst, nausea vomiting and more recently multiple loose bowel movements. She denied any headache, fever, sore throat, nausea any abdominal pain, constipation, any burning in urine. Review of system as mentioned above. Physical exam she was alert oriented, however she was emotionally labile, was nauseous. HEENT PERRLA. Neck no JVD. CVS S1-S2 present, no murmur. RS bilateral air entry, no adventitious sounds. Abdomen soft, nontender, bowel sounds present. Bilateral lower extremity no edema clubbing or cyanosis. Her vitals on presentation temperature of 98.2, pulse of 95 201, respiration of 22, blood pressure 133/65, she was saturating 98% on room air. Labs white count of 19.3, 2 bands. Sodium of 138, potassium 3.6, BUN/creatinine 25/9, bicarb of 8. Glucose of 424. Function test mildly elevated with AST 97, ALT 81, alkaline phosphatase 130. EKG normal sinus rhythm, sinus tachycardia.. Lipase 105. Anion gap of 25. Urine acetone positive UA showed protein of 100, ketones present, increased specific gravity, negative nitrite, negative leukocyte esterase, 1-3 WBC, glucose greater than thousand. CT chest abdomen and pelvis showed moderate thickening of the wall of the distal two thirds of the thoracic esophagus, severe hepatomegaly with hepatic parenchymal disease possibly hepatic steatosis, a soft tissue mass in the pelvic cavity [id number] posterior and superior to the bladder possible adnexal mass was a mesenteric mass, 2.9 cm mass in the left side present as well, no acute diverticulitis seen EGD Impression: 1. LA grade BC esophagitis 2. Atrophic gastritis 3. 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 Small, sliding-type hiatal hernia She was admitted to the ICU for DKA and was placed on an insulin drip and a bicarbonate drip. Endocrinology was consulted who instituted Levemir 35 units with a sliding scale including night time doses. Her statin was held given her transaminitis, and her insulin and bicarb drip were discontinued on hospital day 2. She was hypokalemic and her potassium was repleted, without EKG abnormalaties or symptoms. GI was consulted, and she underwent endoscopy which did not reveal any significant abnormalaties. Her insulin was titrated up and she was placed on a CC1 diet. Her QtC was trended which trended down and she was started on Reglan BID for nausea. She was eventually able to tolerate mild PO intake, and GI was reconsulted given continued nausea. Her potassium normalized, and she was stable from ICU standpoint to be transferred to General Medicine floor. Whilst on the Gen Med floor, her diet was advanced which she initially tolerated but had severe vomiting the next day. She was placed back on a clear liquid diet. Another attempt to advance her diet was subsequently made which she tolerated well. Her HbA1C in the hospital was 11.6. Endocrinology was on board during the entire course of the hospital stay of the patient. She was discharged home on Levemir 50 units daily alongwith Insulin Aspart according to the following sliding scale : Before Each Meal: 80-100 mg/dl: 4 101-120 mg/dl: 6 121-150 mg/dl: 6 151-200 mg/dl: 6 201-250 mg/dl: 8 251-300 mg/dl: 10 301-350 mg/dl: 12 351-400 mg/dl: 14 > 400 mg/dl: 16 Bedtime: < 80 mg/dl: 0 80-100 mg/dl: 0 101-120 mg/dl: 0 121-150 mg/dl: 0 151-200 mg/dl: 2 201-250 mg/dl: 4 251-300 mg/dl: 6 301-350 mg/dl: 8 351-400 mg/dl: 10 > 400 mg/dl: 12 Patient would follow up with Endocrinology as an outpatient. The patient would also follow up with GI for esophagitis and atrophic gastritis. Incidental adnexal mass seen on CT scan. TVUS shows no change in mass from previous; no comment with regards to second mass. The patient would follow up for this as an outpatient. Allergies: Coded Allergies: lamotrigine (From Lamictal) (Severe, RASH 06/03/17) shrimp (Severe, ANAPHYLAXIS 06/03/17) Fish Containing Products (ANAPHYLAXIS 06/03/17) divalproex sodium (From DEPAKOTE) (vomiting 06/03/17) telithromycin (VOMITING AND DIARRHEA 06/03/17) tetracycline (RASH ON HEAD, SCALP GETS REALLY DRY 06/03/17) topiramate (From TOPAMAX) (PER PT REPORTS HAS SIDE EFFECTS UNKNOWN 06/03/17) haloperidol (CATATONIC/DISTONIC 12/30/15 06/03/17) levofloxacin (SEVERE DIARRHEA 06/03/17) oxycodone (VOMITING 06/03/17) Disposition Summary Disposition Principal Diagnosis: DKA Additional Diagnosis: Hypokalemia Diabetic gastroparesis IDDM Atrophic gastritis LA grade BC esophagitis Small, sliding-type hiatal hernia Discharge Disposition: home health services Discharge Instructions General Discharge Information Code Status: Full Code Patient's Diet: Consistent Carbohydrate Diet Patient's Activity: As tolerated Follow-Up Instructions/Appts: The patient was started on Insulin in the hospital. She would follow up with Endocrinology as an outpatient. Patient would also folloe up with Gastroenterology as an outpatient for the management of her Atrophic gastritis and esophagitis. The patient would need to follow up with her Primary care regarding the incidental mass found on the CT scan. Medications at Discharge Discharge Medications: Continue taking these medications: Levothyroxine Sodium (Levothyroxine Sodium) 100 MCG TABLET 1 Tablet ORAL DAILY BEFORE BREAKFAST Qty = 90 Instructions: . Comments: Last Taken: 12/09/17 Time: 600AM Start taking the following new medications: Insulin Aspart, Recombinant (Novolog Flexpen) 100 UNIT/ML INSULN.PEN 0 SC AT BEDTIME Qty = 1 No Refills Instructions: COVER ONLY IF >150 BS UNITS 151-200 2 201-250 4 251-300 6 301-350 8 350-400 10 >400 12. Comments: .. Omeprazole (Omeprazole) 40 MG CAPSULE.DR 1 Capsule ORAL TWICE DAILY Qty = 30 No Refills Instructions: .. Comments: Last Taken: 12/09/17 Time: 530 PM Insulin Aspart (Novolog) 100 UNIT/ML VIAL 0 Units SC 3 TIMES DAILY BEFORE MEALS Qty = 1 No Refills Instructions: BS UNITS. <80 NONE 80-100 4 101-150 6 121-200 6 201-250 8 251-300 10 301-350 12 351-400 14 >400 16. Comments: Last Taken: 12/09/17 Time: 1230PM Insulin Detemir (Levemir) 100 UNIT/ML VIAL 50 Units SC DAILY Qty = 1 No Refills Instructions: .. Comments: Last Taken: 12/09/17 Time: 900AM The following medications have been changed: Old: Pravastatin Sodium (Pravastatin Sodium) 40 MG TABLET 1 Tablet ORAL DAILY Qty = 90 New: Pravastatin Sodium (Pravastatin Sodium) 40 MG TABLET 1 Tablet ORAL DAILY Qty = 90 Instructions: . Comments: NOT GIVEN Old: Bupropion HCl (Wellbutrin Sr) 100 MG TABLET.ER 100 Milligram ORAL DAILY @8 AM Qty = 14 New: Bupropion HCl (Wellbutrin Sr) 100 MG TABLET.ER 100 Milligram ORAL DAILY @8 AM Qty = 14 Instructions: . Comments: NOT GIVEN Old: Olanzapine (Olanzapine) 10 MG TABLET 10 Milligram ORAL Every night Qty = 14 New: Olanzapine (Olanzapine) 10 MG TABLET 10 Milligram ORAL Every night Qty = 14 Instructions: . Comments: NOT GIVEN Old: [place] Carbonate ([place] Carbonate) 300 MG CAPSULE 2 Capsule ORAL TWICE DAILY Qty = 56 New: [place] Carbonate ([place] Carbonate) 300 MG CAPSULE 2 Capsule ORAL TWICE DAILY Qty = 56 Instructions: . Comments: Last Taken: 12/09/17 Time: 900AM Copies To: Jayson HOFFMAN,Galindo Carter MD Review Statement Documenting Attending: Bharat HOFFMAN,Vernon
--- NOTE | 2017-12-08 10:29 | PN- Diabetes ---
Assessment/Plan Diabetes Assessment: This is a 52 Y old lady with diet controlled diabetes presented with nausea, vomitting, diarrhea, and was found to have DKA. Her diabetes has been poorly controlled based on A1c. Her c-peptide was 0.66 with BG of 276. Anti-TYRONE negative Most likely that her endogeneous insulin production has been declining after years of diabetes. She will need insulin treatment over the rodent exterminator. This also explains why she presented with DKA. Plan: Please continue Levemir 50 units daily. Please use the following scale for mealtime if she is able to tolerate solid food. Otherwise continue bedtime sliding scale. Recommend discharge only when she is able to tolerate solid food without vomitting. Once she is discharged, she will call our office to make a follow up appointment. Please give her our office phone number. I instructed her to check her glucose level at least twice a day before breakfast and at bedtime. The targets for fasting glucose level was between 80-130, target for all other times of the day should be between 80-180. I also encouraged her to check blood glucose before each meal. I have instructed her on treatment of hypoglycemia at home so she can use sliding scale. Continue the same insulin regimen at home as she is getting the hospital. No need for metformin. Inpatient Diabetes Orders Before Each Meal: < 80 mg/dl: 0 80-100 mg/dl: 6 101-120 mg/dl: 7 121-150 mg/dl: 7 151-200 mg/dl: 9 201-250 mg/dl: 11 251-300 mg/dl: 13 301-350 mg/dl: 15 351-400 mg/dl: 17 > 400 mg/dl: 19 Subjective Subjective: She has been feeling fine, but start to experience nausea again when I saw her. D5W was discontinued Objective Last 24 Hrs of Vital Signs/I&O Vital Signs Date Time Temp Pulse Resp B/P B/P Pulse O2 O2 Flow FiO2 Mean Ox Delivery Rate 12/08 0620 98.6 84 20 128/80 96 12/07 2100 98.4 88 16 136/76 96 12/07 1449 98.4 90 20 130/75 96 Room Air Intake & Output 12/08 1600 12/08 0800 12/08 0000 Intake Total 100 200 Output Total Balance 100 200 Intake, Oral 100 200
[2017-12-08 14:49] VITALS: BP 140/80
[2017-12-08 22:23] VITALS: BP 134/78
[2017-12-09 06:14] VITALS: BP 136/70
--- NOTE | 2017-12-09 10:53 | PN- Diabetes ---
Assessment/Plan Diabetes Assessment: This is a 52 Y old lady with diet controlled diabetes presented with nausea, vomitting, diarrhea, and was found to have DKA. Her diabetes has been poorly controlled based on A1c. Her c-peptide was 0.66 with BG of 276. Anti-TYRONE negative Most likely that her endogeneous insulin production has been declining after years of diabetes. She will need insulin treatment over the remote computer terminal operator. This also explains why she presented with DKA. Plan: Please continue Levemir 50 units daily. See Novolog change as belows. Once she is discharged, she will call our office to make a follow up appointment. Please give her our office phone number. I instructed her to check her glucose level at least twice a day before breakfast and at bedtime. The targets for fasting glucose level was between 80-130, target for all other times of the day should be between 80-180. I also encouraged her to check blood glucose before each meal. I have instructed her on treatment of hypoglycemia at home so she can use sliding scale. Please also prescribe glucose tabs for her so she can take 4 tabs when BG<80 at home. Continue the same insulin regimen at home as she is getting the hospital (see Novolog dose below). No need for metformin. Inpatient Diabetes Orders Before Each Meal: 80-100 mg/dl: 4 101-120 mg/dl: 6 121-150 mg/dl: 6 151-200 mg/dl: 6 201-250 mg/dl: 8 251-300 mg/dl: 10 301-350 mg/dl: 12 351-400 mg/dl: 14 > 400 mg/dl: 16 Bedtime: < 80 mg/dl: 0 80-100 mg/dl: 0 101-120 mg/dl: 0 121-150 mg/dl: 0 151-200 mg/dl: 2 201-250 mg/dl: 4 251-300 mg/dl: 6 301-350 mg/dl: 8 351-400 mg/dl: 10 > 400 mg/dl: 12 Subjective Subjective: Her appetite was good this morning. Was able to tolerate breakfast. I was informed that patient will by discharged today. Objective Last 24 Hrs of Vital Signs/I&O Vital Signs Date Time Temp Pulse Resp B/P B/P Pulse O2 O2 Flow FiO2 Mean Ox Delivery Rate 12/09 0614 98.2 86 20 136/70 96 Room Air 12/08 2223 99.0 92 18 134/78 94 Room Air 12/08 1600 Room Air 12/08 1449 98.0 91 20 140/80 95 Room Air Intake & Output 12/09 1600 12/09 0800 12/09 0000 Intake Total 800 880 Output Total Balance 800 880 Intake, Oral 800 880
[2017-12-09] MEDS ORDERED: NOVOLOG100 UNIT/2 SC ×4 (10:57→17:09)
[2017-12-09] MEDS ORDERED: LEVEMIR100 UNIT/1 SC ×3 (10:57→17:09)
--- NOTE | 2017-12-09 11:41 | PN- Housestaff ---
Teodoro Patel 12/09/17 1133: Subjective Follow-up For: DKA Hypokalemia Subjective: Patient was examined today. She is doing better and she said that she was willing to go home today. She denies any chest pain abdominal pain weakness fever or any other symptoms. Discharge plan was discussed with her and patient was discharged. Review of Systems Constitutional: Reports: see HPI. Objective Last 24 Hrs of Vital Signs/I&O Vital Signs Date Time Temp Pulse Resp B/P B/P Pulse O2 O2 Flow FiO2 Mean Ox Delivery Rate 12/09 1458 98.3 79 20 130/68 94 Room Air 12/09 0800 Room Air 12/09 0614 98.2 86 20 136/70 96 Room Air 12/08 2223 99.0 92 18 134/78 94 Room Air Intake & Output 12/09 1600 12/09 0800 12/09 0000 Intake Total 600 800 880 Output Total Balance 600 800 880 Intake, Oral 600 800 880 Physical Exam General Appearance: Alert, Oriented X3, Cooperative, No Acute Distress Cardiovascular: Regular Rate, No Murmurs Lungs: Clear to Auscultation, Normal Air Movement Abdomen: Normal Bowel Sounds, Soft, No Tenderness, No Hepatospenomegaly, No Masses Neurological: Normal Speech, Strength at 5/5 X4 Ext, Normal Tone, Sensation Intact Extremities: No Clubbing, No Cyanosis, No Edema, Normal Pulses, No Tenderness/ Swelling Assessment/Plan Assessment: Ms. Sanchez is a 52-year-old female with past medical history of diabetes mellitus, morbid obesity status post lap band procedure and subsequent reversal, obstructive sleep apnea on CPAP (noncompliant), GERD, hyperlipidemia, hypothyroidism, schizoaffective disorder, anxiety, and depression who was being treated for DKA and hypokalemia in the critical care unit. She was transferred to the [facility] service given the normalisation of her Potassium and closed anion gap Her QTc this morning was 474. Plan: 1. DKA (resolved) -Vitals are stable -Patient has history of type 2 diabetes mellitus and presented with diabetic ketoacidosis -Hemoglobin A1c 11.6 -Anion gap is closed -Sodium bicarbonate drip discontinued -Off fluids -Off insulin drip at this time, on Levemir with Sliding scale coverage -Endocrinology recs appreciated * Would continue Levemir at 50 units * The patient tolerates diet well, insulin will be changed to as per Dr. navarro note 2. Nausea/Vomiting -On CC1 diet, tolerating -GI recs appreciated. Patient would follow up with as an out-patient -Nausea/vomiting resolved. on Protonix 40mg PO BI, metoclopramide injection IV 10 mg every 6 -Normal QtC, will continue Tigan and REGLAN -Complained of transient slurring of speech when she was in the ICU. Head CT unremarkable. 3. Anxiety/ Depression -Patient has significant psych history with history of inpatient psychiatric admissions -[place] level low at admission potentially due to noncompliance -Continue lithium, consider re-starting Olanzipine given normal QTc -repeat lithium level low at 0.2 4. 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 -Will hold off on DOUBLE SPINDLE SHAPER OPERATOR consult at this time Continue home medications including levothyroxine DVT prophylaxis with enoxaparin CC1 diet Full code Problem List: 1. DKA (diabetic ketoacidoses) Pain Ratin Pain Location: none Pain Goal: Remain pain free Pain Plan: none Tomorrow's Labs & Rationales: none Vernon Nicholson 12/09/17 1204: Attending MD Review Statement Attending Statement Attending MD Statement: examined this patient, discuss w/resident/PA/CAKE PUNCHER, agreed w/resident/PA/CAKE PUNCHER, discussed with family, reviewed EMR data (avail), discussed with nursing, discussed with case mgmt, reviewed images, amended to note Attending Assessment/Plan: 52-year-old female with past medical history of diabetes mellitus, morbid obesity status post lap band procedure and subsequent reversal, obstructive sleep apnea on CPAP (noncompliant), GERD, hyperlipidemia, hypothyroidism, schizoaffective disorder, anxiety, and depression who was admitted to ICU for DKA now resolved and transferred to [facility]. No new complaints. Tolerated her dinner and ate breakfast. Insulin management as per endocrinology recommendations. She needs to follow up with endo as outpatient. Hypothyroidism c/w levothyroxine PO meds. Anticipate discharge soon as she is able to tolerate her diet and endocrinology for insulin recommnedations. History of non compliance. encouraged compliance. Provide insulin discharge instructions and arranged [facility] for insulin services at home. FOLLOW UP ENdocrinology in [address] Stevenson in 2 weeks
--- NOTE | 2017-12-09 11:55 | Patient Discharge Instructions ---
Discharge Instructions General Discharge Information You were seen/treated for: DKA hypokalemia Special Instructions: please follow up with PCP jorge 1 week of discharge please follow up with endocrinology / renewal specialist within 1 week of dischaege Acute Coronary Syndrome Inclusion Criteria At DC or during hospital stay patient has or had the following: Discharge Core Measures Meds if any: Prescribed or Continued at Discharge Meds if any: NOT Prescribed or Continued at Discharge Congestive Heart Failure Inclusion Criteria At DC or during hospital stay patient has or had the following: Discharge Core Measures Meds if any: Prescribed or Continued at Discharge Meds if any: NOT Prescribed or Continued at Discharge Cerebrovascular accident Inclusion Criteria At DC or during hospital stay patient has or had the following: CVA/TIA Diagnosis No Discharge Core Measures Meds if any: Prescribed or Continued at Discharge Meds if any: NOT Prescribed or Continued at Discharge Venous thromboembolism Discharge Core Measures - Per Current guidelines, there needs to be overlap - treatment for the first 5 days of Warfarin therapy. - If discharged on Warfarin prior to 5 days of - overlap therapy, the patient will need to be - assessed for post discharge needs including - *Post discharge parental anticoagulation - *Warfarin and/or parental anticoagulation education - *Follow up date to check INR post discharge Meds if any: Prescribed or Continued at Discharge Note: Overlap Therapy is Warfarin and Anticoagulant Meds if any: NOT Prescribed or Continued at Discharge
[2017-12-09] MEDS ORDERED: NOVOLOG FL100 UNIT/1 SC ×2 (12:23→16:53)
[2017-12-09 14:58] VITALS: BP 130/68
[2017-12-09] MEDS ORDERED: OMEPRAZOLE40 M1 PO ×2 (16:53→17:09)
[2017-12-09] MEDS ORDERED: WELLBUTRIN SR100 M2 PO (17:09)
[2017-12-09] MEDS ORDERED: LITHIUM CARBON300 M4 PO (17:09)
[2017-12-09] MEDS ORDERED: OLANZAPINE10 M1 PO (17:09)
[2017-12-09] MEDS ORDERED: PRAVASTATIN SOD40 M2 PO (17:09)
== END 2017-12-09 18:10 | DRG 638 ==
LOC: ERH 16:42 → CRI 19:55 → ERHI 19:55 → ENRESERV 20:23 → ENTRNSPT 21:25 → EDTRNSPTSTS 21:35 → CRI 21:41 → CMPTRNSPT 22:14 → ENTRNSPT 12-06 17:18 → EDTRNSPTSTS 12-06 17:20 → 2NA 12-06 17:28 → CMPTRNSPT 12-06 17:33 → 2NA 12-07 07:36
PROVIDERS: Hospitalist; Internal Medicine; Physical Medicine & Rehabilitation; Physician Assistant
PROC: 0DB68ZX Excision of Stomach, Via Natural or Artificial Opening Endoscopic, Diagnostic (ICD-10-PCS; principal; 2017-12-04)
PROC: 0DB48ZX Excision of Esophagogastric Junction, Via Natural or Artificial Opening Endoscopic, Diagnostic (ICD-10-PCS; principal; 2017-12-04)
DX: E11.10 Type 2 diabetes mellitus with ketoacidosis without coma (principal); Z68.41 Body mass index [BMI] 40.0-44.9, adult; E87.2 Acidosis; E78.5 Hyperlipidemia, unspecified; E03.9 Hypothyroidism, unspecified; Z98.84 Bariatric surgery status; E66.01 Morbid (severe) obesity due to excess calories; F31.9 Bipolar disorder, unspecified; R74.0 Nonspecific elevation of levels of transaminase and lactic acid dehydrogenase [LDH]; I10 Essential (primary) hypertension; F25.9 Schizoaffective disorder, unspecified; F41.9 Anxiety disorder, unspecified; G47.33 Obstructive sleep apnea (adult) (pediatric); J38.7 Other diseases of larynx; E87.6 Hypokalemia; R19.00 Intra-abdominal and pelvic swelling, mass and lump, unspecified site; D72.829 Elevated white blood cell count, unspecified; R47.81 Slurred speech; A08.4 Viral intestinal infection, unspecified; E83.39 Other disorders of phosphorus metabolism; I45.81 Long QT syndrome; E11.65 Type 2 diabetes mellitus with hyperglycemia; R11.2 Nausea with vomiting, unspecified; Z91.14 Patient's other noncompliance with medication regimen; K22.70 Barrett's esophagus without dysplasia; K29.40 Chronic atrophic gastritis without bleeding; K44.9 Diaphragmatic hernia without obstruction or gangrene; E11.43 Type 2 diabetes mellitus with diabetic autonomic (poly)neuropathy; K31.84 Gastroparesis; Z88.1 Allergy status to other antibiotic agents; Z88.5 Allergy status to narcotic agent; Z88.8 Allergy status to other drugs, medicaments and biological substances; K21.0 Gastro-esophageal reflux disease with esophagitis
CPT/HCPCS: 2NAP; 83519; 84133; 84300; CCU; 36415; 36592; 74018; 74021; 74177; 80307; 81001; 82436; 82570; 87040; 87070; 87086; 88305; 88312; 93005; 93010; 96361; 96365; 96372; 96375; 96376; 99291; G0480; J0131; J0456; J1650; J1815; J2405; J2765; J3250; J7040; J7042